=== PATIENT | female | born 2000 | race Caucasian/White ===

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

== ENCOUNTER 2021-09-13 05:47 | Observation (INO) ==
[2021-09-13] MEDS ORDERED: SODIUM CHLORIDE 0.9% 1000ML 1,000 ML IV SCH (06:00)
[2021-09-13 06:29] LABS: Basophils # (auto) 0.03 K/uL (0-0.2); Basophils % (auto) 0.2 %; Eosinophils # (auto) 0.19 K/uL (0-0.5); Eosinophils % (auto) 1.3 %; Hematocrit (blood only) 41.2 % (37-47); Hemoglobin 14.2 g/dL (12.0-16.0); Immature Granulocytes # (auto) 0.07 K/uL (0.00-0.02); Immature Granulocytes % (auto) 0.5 %; Lymphocytes # (auto) 2.97 K/uL (1.2-3.4); Lymphocytes % (auto) 20.9 %; Mean Corpuscular Hemoglobin 32.2 pg (25-34); Mean Corpuscular Hgb Conc 34.5 g/dL (32-36); Mean Corpuscular Volume 93.4 fL (80-100); Mean Platelet Volume 10.3 fL (7.4-10.4); Monocytes # (auto) 1.07 K/uL (0.11-0.59); Monocytes % (auto) 7.5 %; Neutrophils # (auto) 9.89 K/uL (1.4-6.5); Neutrophils % (auto) 69.6 %; Platelet Count 341 K/uL (130-400); RDW Coefficient of Variation 12.2 % (11.5-14.5); RDW Standard Deviation 41.7 fL (36.4-46.3); Red Blood Count 4.41 M/uL (4.2-5.4); White Blood Count 14.22 K/uL (4.8-10.8)
[2021-09-13] MEDS ORDERED: MAGNESIUM SULFATE / D5W 1 GM/100 ML BAG IV STA (06:39)
[2021-09-13 06:46] LABS: Pregnancy Test, Serum Negative (Negative)
--- NOTE | 2021-09-13 06:58 | Emergency Department Note ---
History of Present Illness General Chief complaint: Alcohol Intoxication Stated complaint: ETOH, Overdose, Laceration Time Seen by Provider: 09/13/21 06:00 Source: EMS and police Mode of arrival: EMS Limitations: altered mental status and intoxication History of Present Illness Provider complaint: Intentional overdose This is a 21-year-old female brought in by EMS for intentional overdose. Police also came and were filling out a 302 petition as they state they were contacted by the friend's best friend after she received a concerning text message and was concerned for her safety. They went to the patient's residence and no one answered the door however they did not have enough reason to forcefully enter [facility] residence. Eventually the roommate came to the door and they found the patient in the bathtub with what appeared to be blood in the water and she was minimally responsive at that time. They noted there was an empty bottle of tequila and multiple pill bottles on the floor. Police state there were bottles of ibuprofen, Benadryl, and pseudoephedrine as well as a razor and a knife noted on the floor next to the bathtub. They contacted EMS. Patient did slowly begin to arouse and stated she took approximately 10 to 15 tablets of 25 mg Benadryl. Most reported patient initially was able to ambulate with assistance, however has become more sleepy in route. Pt seen during a time of high acuity and national emergency pandemic while wearing PPE. Home Medications Medication Instructions Recorded Confirmed Type No Known Home Medications 09/13/21 09/13/21 History Allergies Allergy/AdvReac Type Severity Reaction Status Date / Time animal dander Allergy Unknown cats Verified 09/14/21 14:52 house dust Allergy Unknown Unknown Verified 09/14/21 14:52 Penicillins Allergy Unknown Unknown Verified 09/14/21 14:52 weed pollen Allergy Unknown Unknown Verified 09/14/21 14:52 Past Med/Surg History Medical History ADHD Asthma Depression Migraine Surgical History No history of previous surgery Family History Uncle Asthma maternal Denies family history of Cervix cancer Ovarian cancer Breast cancer Colorectal cancer Uterine cancer Social History Smoking Status: Unknown if ever smoked Tobacco Type: E-cigarettes / Vaping Cigarettes Per Day: Occasional vape pens; Tobacco Cessation Education Requested by Patient: No Hx Alcohol Use: Yes Alcohol type: hard liquor Hx Substance Use: No Preferred Language: Estonian Communication Ability: Effective Beliefs That Will Affect Care: None marital status: Single Current Living Situation: Other Current Living Situation Comment: Room mate current occupational status: employed and student Other Information That Helps Us Care for You: No Feels Safe at Home: Yes Safety Concerns: Afraid for Self Review of Systems A total of 10 systems reviewed and were otherwise negative All systems reviewed & are unremarkable except as noted in HPI & below Physical Exam Vital Signs Vital Signs - 24 hr 09/13/21 06:00 09/13/21 06:20 09/13/21 06:30 Temperature 36.9 C Temperature Source Oral Pulse Rate 116 H 114 H 104 H Pulse Rate from SpO2 Sensor 116 H Respiratory Rate 23 19 25 H Respiratory Effort / Characteristics Non-Labored Spontaneous Respiratory Depth Normal Blood Pressure 145/91 H 142/94 H Blood Pressure Mean 109 110 Pulse Oximetry 98 97 98 Oxygen Delivery Method Room Air Room Air Room Air Sepsis New/Unexplained Change in Mental Status N/A Sepsis Action Taken by Nursing No Action Required GENERAL: alert, somnolent appearing, well nourished EYE EXAM: normal conjunctiva, PERRL and EOM's grossly intact OROPHARYNX: no exudate, no erythema, lips, buccal mucosa, and tongue normal and mucous membranes are dry NECK: supple, no nuchal rigidity, no adenopathy, non-tender LUNGS: Clear to auscultation. Normal chest wall mechanics, no w/r/r HEART: no murmurs, S1 normal and S2 normal ABDOMEN: abdomen soft, non-tender, normo-active bowel sounds, no masses, no rebound or guarding. Several superficial horizontal lacerations noted to abdomen. BACK: Back is symmetrical on inspection and there is no deformity, no midline tenderness, no CVA tenderness. SKIN: no rashes and no bruising UPPER EXTREMITIES: upper extremities are grossly normal. FROM, nml pulses b/l. Multiple superficial lacerations noted bilateral forearms. LOWER EXTREMITIES: No pitting edema. FROM, nml pulses b/l. Multiple superficial lacerations noted to the legs. NEURO EXAM: Somnolent, arouses to painful stimuli and loud voice, cranial nerves II-XII grossly intact, unable to follow commands, moving arms and legs spontaneously Course Course 0632: Tylenol at bedside. States she received concerning text messages from the patient overnight, tried to call the patient and got no response. She then tried to contact several of the people including her roommate to check on her and got no response so she finally called the police to perform a well check. She states patient does have a history of alcohol abuse, and did recently have a DUI which caused additional stress that she was concerned for the financial implications of this. She denies any knowledge of prior suicide attempts in the patient. States she does not currently see any mental health providers and is currently not undergoing any mental health treatment. States she does not use any illicit drugs. 0715: Discussed with mom at bedside. 0735: Discussed with Nadeem, poison control. Administered Medications Acetaminophen (Acetaminophen 325 Mg Tab) 650 mg PO Q4H PRN PRN Reason: Pain or Fever Stop: 10/13/21 12:40 Last Admin: 09/14/21 12:19 Dose: 650 mg Documented by: [id number] Admin: 09/13/21 15:53 Dose: 650 mg Documented by: [id number] Folic Acid (Folic Acid 1 Mg Tab) 1 mg PO QAM [facility] Stop: 10/13/21 12:40 Last Admin: 09/14/21 08:12 Dose: 1 mg Documented by: [id number] Admin: 09/13/21 13:51 Dose: 1 mg Documented by: [id number] Gabapentin (Gabapentin 300 Mg Cap) 300 mg PO TID [facility] Stop: 10/14/21 15:44 Last Admin: 09/14/21 21:09 Dose: 300 mg Documented by: [id number] Admin: 09/14/21 16:57 Dose: 300 mg Documented by: [id number] Ceftriaxone Sodium 2,000 mg/ (Dextrose) 70 mls @ 140 mls/hr IV DAILY [facility]; Protocol Stop: 09/19/21 08:59 Last Infusion: 09/14/21 10:04 Dose: 0 mls/hr Documented by: [id number] Admin: 09/14/21 08:35 Dose: 140 mls/hr Documented by: [id number] Thiamine HCl (Thiamine Hcl 100 Mg Tab) 100 mg PO QAM [facility] Stop: 10/13/21 12:40 Last Admin: 09/14/21 08:12 Dose: 100 mg Documented by: [id number] Admin: 09/13/21 13:51 Dose: 100 mg Documented by: [id number] Discontinued Medications Sodium Chloride (Nss 1000ml) 1,000 mls @ 500 mls/hr IV .Q2H SUSANNE Stop: 09/13/21 07:59 Last Infusion: 09/13/21 06:48 Dose: 0 mls/hr Documented by: [id number] Admin: 09/13/21 06:15 Dose: 500 mls/hr Documented by: [id number] Magnesium Sulfate/Dextrose (Magnesium Sulfate / D5w) 1 gm in 100 mls @ 100 mls/hr IV NOW STA Stop: 09/13/21 07:38 Last Infusion: 09/13/21 11:53 Dose: 0 mls/hr Documented by: [id number] Admin: 09/13/21 07:33 Dose: 100 mls/hr Documented by: [id number] Sodium Chloride (Nss 1000ml) 1,000 mls @ 250 mls/hr IV .Q4H SUSANNE Stop: 10/13/21 06:44 Last Infusion: 09/13/21 13:17 Dose: 0 mls/hr Documented by: [id number] Admin: 09/13/21 11:53 Dose: 250 mls/hr Documented by: [id number] Infusion: 09/13/21 11:33 Dose: 250 mls/hr Documented by: [id number] Infusion: 09/13/21 10:45 Dose: 250 mls/hr Documented by: [id number] Admin: 09/13/21 07:33 Dose: 250 mls/hr Documented by: [id number] Potassium Chloride/Sodium Chloride (Normal Saline W/20 Meq Kcl) 20 meq in 1,000 mls @ 100 mls/hr IV .Q10H SUSANNE; Protocol Stop: 10/13/21 07:44 Last Infusion: 09/13/21 13:17 Dose: 0 mls/hr Documented by: [id number] Admin: 09/13/21 07:59 Dose: 100 mls/hr Documented by: [id number] Potassium Chloride/Sodium Chloride (Normal Saline W/20 Meq Kcl) 20 meq in 1,000 mls @ 75 mls/hr IV .[id number] ONE Stop: 09/14/21 02:19 Last Infusion: 09/14/21 05:49 Dose: 0 mls/hr Documented by: [id number] Admin: 09/13/21 13:51 Dose: 75 mls/hr Documented by: [id number] Lidocaine HCl (Xylocaine 1%/Sod Bicarb 20 Ml Vial) 40 ml INFIL NOW ONE Stop: 09/13/21 07:50 Last Admin: 09/13/21 08:18 Dose: 40 ml Documented by: [id number] Critical Care Time Critical Care Time: Yes Total Critical Care Time: 42 Critical care of 42 min performed to assess and manage high likelihood of life- threatening intentional overdose, involving labs and imaging performed with assessment to evaluate intentional overdose diagnosis with frequent reassessment. This time includes bedside time, treatment discussions with patient/family/consultants, documentation time and excludes procedure time. Medical Decision Making Differential Diagnosis Overdose, toxicologic, infection, hypoglycemia, electrolyte abnormalities, cardiac sources, intracerebral event, neurologic, trauma, as well as other pathologies. Medical Records Attestation: I reviewed the patient's medical records. Home Medications Current Medication List: was personally reviewed by me Laboratory Data Attestation: I reviewed the patient's lab results. Result diagrams: 09/14/21 05:46 09/14/21 05:46 Lab Results 09/13/21 09/13/21 09/13/21 Range/Units 06:15 06:15 06:15 WBC 14.22 H (4.8-10.8) K/uL RBC 4.41 (4.2-5.4) M/uL Hgb 14.2 (12.0-16.0) g/dL Hct 41.2 (37-47) % MCV 93.4 (80-100) fL MCH 32.2 (25-34) pg MCHC 34.5 (32-36) g/dL RDW Std Deviation 41.7 (36.4-46.3) fL RDW Coeff of Lynn 12.2 (11.5-14.5) % Plt Count 341 (130-400) K/uL MPV 10.3 (7.4-10.4) fL Immature Gran % (Auto) 0.5 % Neut % (Auto) 69.6 % Lymph % (Auto) 20.9 % [place] % (Auto) 7.5 % Eos % (Auto) 1.3 % Baso % (Auto) 0.2 % Neut # (Auto) 9.89 H (1.4-6.5) K/uL Lymph # (Auto) 2.97 (1.2-3.4) K/uL [place] # (Auto) 1.07 H (0.11-0.59) K/uL Eos # (Auto) 0.19 (0-0.5) K/uL Baso # (Auto) 0.03 (0-0.2) K/uL Immature Gran # (Auto) 0.07 H (0.00-0.02) K/uL Sodium 138 (136-145) mmol/L Potassium 3.3 L (3.5-5.1) mmol/L Chloride 107 (98-107) mmol/L Carbon Dioxide 19 L (21-32) mmol/L Anion Gap 12 H (3-11) BUN 12 (6-23) mg/dl Creatinine 0.79 (0.6-1.2) mg/dl Est Cr Clr Drug Dosing Not Reportable Est GFR ( Amer) 124.0 ml/min Est GFR (Non-Af Amer) 107.0 ml/min BUN/Creatinine Ratio 15.2 (10-20) Glucose 84 (70-99(Fasting)) mg/dl Calcium 9.4 (8.5-10.1) mg/dl Magnesium (1.7-2.4) mg/dl Total Bilirubin 0.2 (0.2-1.0) mg/dl AST 70 H (13-39) U/L ALT 106 H (7-52) U/L Alkaline Phosphatase 58 (34-104) U/L Total Protein 8.2 (6.0-8.3) gm/dl Albumin 4.6 (3.4-5.0) gm/dl Globulin 3.6 (2.5-4.0) gm/dl Albumin/Globulin Ratio 1.3 (0.9-2) TSH 9.860 H (0.300-4.500) uIu/ml Free T4 0.97 (0.61-1.60) ng/dl HCG, Qual (Negative) Salicylates (3.0-30) mg/dl Acetaminophen (10-30) ug/ml Ethyl Alcohol mg/dL (<10.0) mg/dl 09/13/21 09/13/21 09/13/21 Range/Units 06:15 06:15 06:20 WBC (4.8-10.8) K/uL RBC (4.2-5.4) M/uL Hgb (12.0-16.0) g/dL Hct (37-47) % MCV (80-100) fL MCH (25-34) pg MCHC (32-36) g/dL RDW Std Deviation (36.4-46.3) fL RDW Coeff of Lynn (11.5-14.5) % Plt Count (130-400) K/uL MPV (7.4-10.4) fL Immature Gran % (Auto) % Neut % (Auto) % Lymph % (Auto) % [place] % (Auto) % Eos % (Auto) % Baso % (Auto) % Neut # (Auto) (1.4-6.5) K/uL Lymph # (Auto) (1.2-3.4) K/uL [place] # (Auto) (0.11-0.59) K/uL Eos # (Auto) (0-0.5) K/uL Baso # (Auto) (0-0.2) K/uL Immature Gran # (Auto) (0.00-0.02) K/uL Sodium (136-145) mmol/L Potassium (3.5-5.1) mmol/L Chloride (98-107) mmol/L Carbon Dioxide (21-32) mmol/L Anion Gap (3-11) BUN (6-23) mg/dl Creatinine (0.6-1.2) mg/dl Est Cr Clr Drug Dosing Est GFR ( Amer) ml/min Est GFR (Non-Af Amer) ml/min BUN/Creatinine Ratio (10-20) Glucose (70-99(Fasting)) mg/dl Calcium (8.5-10.1) mg/dl Magnesium 1.9 (1.7-2.4) mg/dl Total Bilirubin (0.2-1.0) mg/dl AST (13-39) U/L ALT (7-52) U/L Alkaline Phosphatase (34-104) U/L Total Protein (6.0-8.3) gm/dl Albumin (3.4-5.0) gm/dl Globulin (2.5-4.0) gm/dl Albumin/Globulin Ratio (0.9-2) TSH (0.300-4.500) uIu/ml Free T4 (0.61-1.60) ng/dl HCG, Qual Negative (Negative) Salicylates (3.0-30) mg/dl Acetaminophen (10-30) ug/ml Ethyl Alcohol mg/dL 179.2 H (<10.0) mg/dl 09/13/21 Range/Units 06:57 WBC (4.8-10.8) K/uL RBC (4.2-5.4) M/uL Hgb (12.0-16.0) g/dL Hct (37-47) % MCV (80-100) fL MCH (25-34) pg MCHC (32-36) g/dL RDW Std Deviation (36.4-46.3) fL RDW Coeff of Lynn (11.5-14.5) % Plt Count (130-400) K/uL MPV (7.4-10.4) fL Immature Gran % (Auto) % Neut % (Auto) % Lymph % (Auto) % [place] % (Auto) % Eos % (Auto) % Baso % (Auto) % Neut # (Auto) (1.4-6.5) K/uL Lymph # (Auto) (1.2-3.4) K/uL [place] # (Auto) (0.11-0.59) K/uL Eos # (Auto) (0-0.5) K/uL Baso # (Auto) (0-0.2) K/uL Immature Gran # (Auto) (0.00-0.02) K/uL Sodium (136-145) mmol/L Potassium (3.5-5.1) mmol/L Chloride (98-107) mmol/L Carbon Dioxide (21-32) mmol/L Anion Gap (3-11) BUN (6-23) mg/dl Creatinine (0.6-1.2) mg/dl Est Cr Clr Drug Dosing Est GFR ( Amer) ml/min Est GFR (Non-Af Amer) ml/min BUN/Creatinine Ratio (10-20) Glucose (70-99(Fasting)) mg/dl Calcium (8.5-10.1) mg/dl Magnesium (1.7-2.4) mg/dl Total Bilirubin (0.2-1.0) mg/dl AST (13-39) U/L ALT (7-52) U/L Alkaline Phosphatase (34-104) U/L Total Protein (6.0-8.3) gm/dl Albumin (3.4-5.0) gm/dl Globulin (2.5-4.0) gm/dl Albumin/Globulin Ratio (0.9-2) TSH (0.300-4.500) uIu/ml Free T4 (0.61-1.60) ng/dl HCG, Qual (Negative) Salicylates < 3.0 L (3.0-30) mg/dl Acetaminophen < 3 L (10-30) ug/ml Ethyl Alcohol mg/dL (<10.0) mg/dl Imaging Data Radiologist's Impression: Chest X-Ray 09/13/21 06:33 XR chest 1V portable HISTORY: 21 years-old Female overdose acute drug overdose COMPARISON: None TECHNIQUE: PA view of the chest FINDINGS: Mild right hemidiaphragmatic elevation. Lungs are slightly hypoinflated with bronchovascular crowding. Cardiomediastinal and hilar silhouettes are otherwise unremarkable. No pneumothorax, pleural effusion, airspace consolidation or overt pulmonary edema. Bones appear grossly intact. IMPRESSION: Hypoinflation without acute process. ACT 112: Negative or not required by law. The above report was generated using voice recognition software. It may contain grammatical, syntax or spelling errors. Electronically signed by: Alvaro Fong M.D. 09/13/2021 7:31 AM ECG Data Attestation: I personally reviewed and interpreted this ECG as follows: Indication: + toxicologic Rate (beats per minute): 100 Rhythm: + normal sinus ECG Intervals/blocks: + Normal QRS and + Normal QT ECG Reading: + Normal ECG ST segments: + Nonspecific ST abnormalities Additional Comments: prolonged QTc MDM Narrative An order was placed for continuous cardiac monitoring. The monitor shows a rate of _109_ with _sinus tachycardia__ rhythm. This is a 21-year-old female brought in by EMS for overdose as well as si gnificant lacerations and an attempted suicide. I did speak with police were first on scene and noted several pill bottles as well as her suicide note. I did fill out a 302 petition. Patient was tachycardic however otherwise stable, was responsive although would not follow commands on neuro testing. Multiple lacerations noted to extremities and abdomen. Based on discussion with police, best friend who arrived at bedside, and EMS report based on their initial interaction with the patient, patient appears to have ingested alcohol and diphenhydramine. Labs drawn and sent, to IV started, IV fluids started, patient placed on a monitor. Chest x-ray performed. I spoke with the patient's best friend when she arrived at bedside. I updated the patient's mother when she came to bedside. Patient rechecked multiple times. Patient's heart rate did improve with IV fluid rehydration. Patient slowly became more easily aroused. After discussion with poison control and due to concern for timing of effects of ingestion wearing off, case was discussed with hospitalist for additional inpatient management and psychiatric consultation. I do feel patient's 302 should be upheld due to significance of her attempt and reported worsening depression by the best friend. Patient is also at risk for alcohol withdrawal based on best friend's description of alcohol abuse recently. Impression & Plan Intentional overdose, Alcoholic intoxication, Suicide attempt, Laceration of multiple sites, Transaminitis, Hypokalemia Discharge Plan Visit Data Chief Complaint: Alcohol Intoxication Stated Complaint: ETOH, Overdose, Laceration ED Provider: April De La Fuente Discharge Problem: Intentional overdose, Alcoholic intoxication, Suicide attempt, Laceration of multiple sites, Transaminitis, Hypokalemia Patient Disposition: Admitted As Inpatient Discharge Instructions Interventions: ED Discharge Assessment Last Done: 09/13/21 11:33 Discharge Problem: Intentional overdose Qualifiers: Encounter type: initial encounter Qualified Code(s): T50.902A - Poisoning by unspecified drugs, medicaments and biological substances, intentional self-harm, initial encounter Alcoholic intoxication Qualifiers: Complication of substance-induced condition: with unspecified complication Qualified Code(s): F10.929 - Alcohol use, unspecified with intoxication, unspecified
[2021-09-13 07:07] LABS: Alanine Aminotransferase 106 U/L (7-52); Albumin Globulin Ratio 1.3 (0.9-2); Albumin Level 4.6 gm/dl (3.4-5.0); Alkaline Phosphatase 58 U/L (34-104); Anion Gap 12 (3-11); Aspartate Aminotransferase 70 U/L (13-39); BUN Creatinine Ratio 15.2 (10-20); Bilirubin,Total 0.2 mg/dl (0.2-1.0); Blood Urea Nitrogen 12 mg/dl (6-23); Calcium 9.4 mg/dl (8.5-10.1); Carbon Dioxide 19 mmol/L (21-32); Chloride 107 mmol/L (98-107); Globulin 3.6 gm/dl (2.5-4.0); Glucose 84 mg/dl (70-99(Fasting)); Potassium 3.3 mmol/L (3.5-5.1); Sodium 138 mmol/L (136-145); Total Protein 8.2 gm/dl (6.0-8.3)
--- NOTE | 2021-09-13 07:32 | XRay Report ---
XR chest 1V portable HISTORY: 21 years-old Female overdose acute drug overdose COMPARISON: None TECHNIQUE: PA view of the chest FINDINGS: Mild right hemidiaphragmatic elevation. Lungs are slightly hypoinflated with bronchovascular crowding . Cardiomediastinal and hilar silhouettes are otherwise unremarkable. No pneumothorax, pleural effusi on, airspace consolidation or overt pulmonary edema. Bones appear grossly intact. IMPRESSION: Hypoinflation without acute process. ACT 112: Negative or not required by law. The above report was generated using voice recognition software. It may contain grammatical, syntax o r spelling errors. Electronically signed by: Alvaro Fong M.D. 09/13/2021 7:31 AM
[2021-09-13] MEDS: SODIUM CHLORIDE 0.9% 1000ML 1,000 ML IV SCH ×2 (07:33→11:53)
[2021-09-13 07:40] LABS: Acetaminophen < 3 ug/ml (10-30); Salicylate < 3.0 mg/dl (3.0-30)
[2021-09-13] MEDS ORDERED: NSS + 20MEQ KCL 20 MEQ/1,000 ML BAG IV SCH (07:45)
[2021-09-13] MEDS ORDERED: XYLOCAINE 1%/SOD BICARB 20 ML VIAL INFIL ONE (07:49)
--- NOTE | 2021-09-13 09:00 | History & Physical Report ---
Date of Service September 13, 2021 Assessment & Plan (1) Intentional overdose: (2) Alcoholic intoxication: (3) Suicide attempt: (4) Laceration of multiple sites: (5) Transaminitis: (6) Hypokalemia: Plan: This is a 21-year-old female who has significant past medical history of depression with anxiety and alcohol abuse who presents to ED via EMS with a 302 petition secondary to suicide attempt. Given patient's current condition with alcohol intoxication, evidence of active suicide attempt with Benadryl overdose and numerous cuts and excoriations to extremities, arms and abdomen it is felt that 302 petition should be upheld. Once medically stable patient requires inpatient psychiatric evaluation and further treatment. Also recommended would be alcoholic rehab. Intentional overdose Alcohol intoxication Alcohol abuse Suicide attempt Laceration of multiple sites Admit to PCU IV fluid NSS +20 M EQ KCl 125 cc/h Conservative management Keep lacerated areas clean and dry with dry dressing Suicide precautions, safe tray Consult psychiatry, will need inpatient psychiatry once medically cleared Also encourage alcohol cessation along with alcohol rehab AWSS protocol, will hold on gabapentin taper for now until effects of bendaryl/ ETOH wear off, consider adding in a.m. to prevent withdrawal daily thiamine and folic acid Hypokalemia Replace Metabolic acidosis Secondary to alcohol intoxication Elevated LFTs Obtain hepatitis panel Repeat in a.m. Consider right upper quadrant ultrasound in a.m. if no improvement Depression with anxiety currently not on any medications psych consulted DVT ppx: not indicated, given young age encourage ambulation if able DISPO: PCU, will need inpt psyc and 302 needs to be upheld PCP: Edwige FULL CODE Pt was seen and examined in collaboration with Dr. Zeng, please see addendum History of Present Illness Chief Complaint: 302, suicide attempt Primary Care Provider: Felicitas Gibbons This is a 21-year-old female who has significant past medical history of depression with anxiety and alcohol abuse who presents to ED via EMS with a 302 petition secondary to suicide attempt. History obtained from ED provider and mother at bedside. Patient unable to give accurate history at this time. According to history patient sent her best friend a disturbing text message that was concerning for her safety. Police were called who performed a wellness check. Patient was found in the bathtub in bloody water with numerous cuts to her upper, lower extremities and abdomen. Also found was a empty tequila bottle, a Benadryl bottle, and ibuprofen bottle and a pseudoephedrine bottle. After further questioning it was determined that patient took approximately 10- 15 Benadryl. It does not appear she took any ibuprofen or pseudoephedrine. She also drank half a bottle of tequila. According to mother patient has never had a suicide attempt in the past. She did previously do superficial cutting. Patient does drink on a daily basis per mother and they know it is a problem. They have been trying to get her to go to rehab, but she has been noncompliant. There is no known history of withdrawal. She does suffer from depression and anxiety and has sought counseling in the past, but per [facility] records appears this was back in 2019. She does not take any medications on a regular basis. It is not felt that she uses any illicit drug substances, but she does occasionally vape nicotine. Upon arrival to ED patient was very somnolent but otherwise hemodynamically stable. She was found to have an ethyl alcohol level of 179.2. Her salicylate and acetaminophen level was negative. She did have mild AST and ALT elevation at 70 and 106 respectively. She also had mild hypokalemia 3.4 and metabolic acidosis with a CO2 of 19 and a gap of 12. She had mild leukocytosis at 14.22. In ED she received 2 L IV fluid bolus and started on NSS with potassium supplementation. She also received IV magnesium. Due to numerous superficial cuts on abdomen, upper extremity and lower extremity it did require closure with Dermabond and Steri-Strips as well as some required sutures. Mother at bedside states patient has never had inpatient psychiatric evaluation. Allergies Allergy/AdvReac Type Severity Reaction Status Date / Time animal dander Allergy cats Verified 11/23/19 13:42 house dust Allergy Verified 11/23/19 13:42 Penicillins Allergy Verified 11/23/19 13:42 weed pollen Allergy Verified 11/23/19 13:42 [id number] Allergy Unknown Uncoded 07/16/02 18:29 Home Medications Medication Instructions Recorded Confirmed Type No Known Home Medications 09/13/21 09/13/21 History Past Med/Surg History Medical History (Updated 09/13/21 @ 08:57 by Zofia Richardson PA-C) ADHD Asthma Depression Migraine Surgical History No history of previous surgery Family History Uncle Asthma maternal Denies family history of Cervix cancer Ovarian cancer Breast cancer Colorectal cancer Uterine cancer Social History (Updated 09/13/21 @ 08:58 by Zofia Richardson PA-C) Smoking Status: Unknown if ever smoked Tobacco Type: E-cigarettes / Vaping Hx Alcohol Use: Yes Alcohol type: hard liquor Hx Substance Use: No Preferred Language: Upper Sorbian marital status: Single current occupational status: employed and student Feels Safe at Home: Yes Review of Systems Review of Systems: Unobtainable due to reduced consciousness Physical Exam Physical Exam: Constitutional: WD/WN, vitals as above, NAD, lying in bed, awake but not communicating Head: Normocephalic, Atraumatic Eyes: PERRL, conjunctivae normal, anicteric sclerae ENMT: external ear and nose normal, oropharynx normal dry membranes Neck: trachea midline, no thyromegaly normal visual inspection Respiratory: normal respiratory effort, lungs clear to auscultation, no wheeze, rales, rhonchi. Normal insp/exp effort, no accessory muscle use Cardiovascular: RRR, no murmur, no edema Vessels: no JVD or carotid bruit Chest: normal inspection of chest Abdomen: normal bowel sounds, soft, nontender, no hepatosplenomegaly , superficial lacerations to abd wall Musculoskeletal: no cyanosis or clubbing, extremities motor strength 5/5 Skin: no rashes, warm and dry normal turgor , lacerations noted to b/l forearms and b/l upper extremities, dermabonded and steristrips in place Neurologic: PERRL, EOMI, accommodation nl, no face palsy, no dysarthria CN's II-XI intact bilaterally and moves all extremities Psychiatric: Alert but not oriented Lymphatic: no cervical or axillary lymphadenopathy : deferred Results & Data Results & Data ([facility]) Vital Signs (Past 12 Hours) Vital Signs Temp Pulse Resp BP Pulse Ox 09/13/21 08:10 94 H 23 98 09/13/21 08:00 96 H 30 H 137/83 99 09/13/21 07:50 93 H 25 H 98 09/13/21 07:40 93 H 23 97 09/13/21 07:30 94 H 24 119/84 96 09/13/21 07:20 96 09/13/21 07:10 19 98 09/13/21 07:00 93 H 28 H 116/77 95 09/13/21 06:50 90 25 H 97 09/13/21 06:30 104 H 25 H 142/94 H 98 09/13/21 06:20 36.9 C 114 H 19 145/91 H 97 09/13/21 06:00 116 H 23 98 Diagnostic Findings Chest X-Ray 09/13/21 06:33 XR chest 1V portable HISTORY: 21 years-old Female overdose acute drug overdose COMPARISON: None TECHNIQUE: PA view of the chest FINDINGS: Mild right hemidiaphragmatic elevation. Lungs are slightly hypoinflated with bronchovascular crowding. Cardiomediastinal and hilar silhouettes are otherwise unremarkable. No pneumothorax, pleural effusion, airspace consolidation or overt pulmonary edema. Bones appear grossly intact. IMPRESSION: Hypoinflation without acute process. ACT 112: Negative or not required by law. The above report was generated using voice recognition software. It may contain grammatical, syntax or spelling errors. Electronically signed by: Alvaro Fong M.D. 09/13/2021 7:31 AM Medications Administered Medication List Sodium Chloride (Nss 1000ml) 1,000 mls @ 250 mls/hr IV .Q4H SUSANNE Stop: 10/13/21 06:44 Last Admin: 09/13/21 07:33 Dose: 250 mls/hr Documented by: [id number] Potassium Chloride/Sodium Chloride (Normal Saline W/20 Meq Kcl) 20 meq in 1,000 mls @ 100 mls/hr IV .Q10H SUSANNE; Protocol Stop: 10/13/21 07:44 Last Admin: 09/13/21 07:59 Dose: 100 mls/hr Documented by: [id number] Discontinued Medications Sodium Chloride (Nss 1000ml) 1,000 mls @ 500 mls/hr IV .Q2H SUSANNE Stop: 09/13/21 07:59 Last Infusion: 09/13/21 06:48 Dose: 0 mls/hr Documented by: [id number] Admin: 09/13/21 06:15 Dose: 500 mls/hr Documented by: [id number] Magnesium Sulfate/Dextrose (Magnesium Sulfate / D5w) 1 gm in 100 mls @ 100 mls/hr IV NOW STA Stop: 09/13/21 07:38 Last Admin: 09/13/21 07:33 Dose: 100 mls/hr Documented by: [id number] Lidocaine HCl (Xylocaine 1%/Sod Bicarb 20 Ml Vial) 40 ml INFIL NOW ONE Stop: 09/13/21 07:50 Last Admin: 09/13/21 08:18 Dose: 40 ml Documented by: [id number] ECG Rate (beats per minute): 100 Rhythm: normal sinus Findings: + prolonged QT (503ms) COVID-19 Results Results COVID-19 Adm Lab Results: RBC 4.41 M/uL (4.2-5.4) 09/13/21 WBC 14.22 K/uL (4.8-10.8) H 09/13/21 Hgb 14.2 g/dL (12.0-16.0) 09/13/21 Hct 41.2 % (37-47) 09/13/21 Plt Count 341 K/uL (130-400) 09/13/21 Neutrophils (%) (Auto) 69.6 % 09/13/21 Lymphocytes (%) (Auto) 20.9 % 09/13/21 Monocytes # (Auto) 1.07 K/uL (0.11-0.59) H 09/13/21 Eosinophils # (Auto) 0.19 K/uL (0-0.5) 09/13/21 Immature Granulocyte % (Auto) 0.5 % 09/13/21 Neutrophils # (Auto) 9.89 K/uL (1.4-6.5) H 09/13/21 Lymphocytes # (Auto) 2.97 K/uL (1.2-3.4) 09/13/21 Monocytes # (Auto) 1.07 K/uL (0.11-0.59) H 09/13/21 Eosinophils # (Auto) 0.19 K/uL (0-0.5) 09/13/21 Basophils # (Auto) 0.03 K/uL (0-0.2) 09/13/21 Immature Granulocyte # (Auto) 0.07 K/uL (0.00-0.02) H 09/13/21 Na 138 mmol/L (136-145) 09/13/21 K 3.3 mmol/L (3.5-5.1) L 09/13/21 Cl 107 mmol/L (98-107) 09/13/21 CO2 19 mmol/L (21-32) L 09/13/21 Anion Gap 12 (3-11) H 09/13/21 BUN 12 mg/dl (6-23) 09/13/21 Creatinine 0.79 mg/dl (0.6-1.2) 09/13/21 BUN/Creatinine Ratio 15.2 (10-20) 09/13/21 Glucose Level 84 mg/dl (70-99(Fasting)) 09/13/21 Ca 9.4 mg/dl (8.5-10.1) 09/13/21 Total Bilirubin 0.2 mg/dl (0.2-1.0) 09/13/21 AST/SGOT 70 U/L (13-39) H 09/13/21 ALT/SGPT 106 U/L (7-52) H 09/13/21 Alkaline Phosphatase 58 U/L (34-104) 09/13/21 Total Protein 8.2 gm/dl (6.0-8.3) 09/13/21 Albumin 4.6 gm/dl (3.4-5.0) 09/13/21 Globulin 3.6 gm/dl (2.5-4.0) 09/13/21 Albumin/Globulin Ratio 1.3 (0.9-2) 09/13/21 SARS-CoV-2, RNA, NAAT NEGATIVE (NEGATIVE) 09/13/21 Chest X-Ray 09/13/21 Code Status & VTE Plan Code Status Full Code VTE Prophylaxis Plan VTE Prophylaxis will be ordered: No Supervising Physician Co-Signing Physician Notes Patient is a 21-year-old female with history of depression, anxiety, alcohol use disorder and no other significant past medical history presents with history of a suicidal attempt. Patient was noted in bathtub with blood-tinged water, numerous lacerations bilateral upper and lower extremities and abdomen. She was noted to have bottles of ibuprofen, pseudoephedrine, Benadryl and a bottle of tequila next to her. Patient informed to have approximately taking 10-15 Benadryl tablets. Patient currently unable to provide any history and most of the history is obtained from patient's mother at bedside. Patient apparently drinks on a daily basis as per family. No known history of illicit drug use. Patient's boyfriend left her recently and this could have been possibly the triggering factor for suicidal attempt as per family. Please review HPI for complete details of presentation. Blood work suggestive of leukocytosis 14 K, potassium 3.3, bicarbonate 19, mild elevated LFTs, AST 70, ALT 106, alcohol level 179. EKG with history of prolonged QTC. Chest x-ray showed no acute process. On exam patient is well-built and nourished, no apparent distress, drowsy, not communicating, normocephalic atraumatic, EOMI, normal breath sounds, clear to auscultation, S1-S2, mild tachycardia, abdomen soft, nontender, multiple superficial lacerations, alert, awake, confused, grossly moves all extremities, multiple lacerations noted on bilateral upper and lower extremities. Complete neurological exam could not be performed given patient's mental status. Patient is admitted for management of intentional overdose, pau cidal attempt and alcohol use disorder. Poison control was contacted who recommended conservative management as per ED physician. Suicidal precautions, one-on-one observation, psychiatry consulted. Gentle IV fluids. Monitor for alcohol withdrawal. Agree with checking hepatitis panel and monitoring LFTs. Consider imaging liver if needed. Elevated TSH likely acute phase reactant. Will repeat TSH in a.m. Urinalysis and toxicology screen pending. Thiamine, folic acid supplements. I personally reviewed the record. Patient is interviewed and examined at bedside. Patient's care is coordinated with Zofia Mckenna. Please refer to the documentation above for details of patient's presentation and for discussion of other issues. (1) Intentional overdose Encounter type: initial encounter Qualified Code(s): T50.902A - Poisoning by unspecified drugs, medicaments and biological substances, intentional self-harm, initial encounter (2) Alcoholic intoxication Complication of substance-induced condition: with unspecified complication Qualified Code(s): F10.929 - Alcohol use, unspecified with intoxication, unspecified
--- NOTE | 2021-09-13 09:17 | Emergency Department Note ---
ED Visit Note EMERGENCY DEPARTMENT PROCEDURE NOTE: I was asked by Dr. De La Fuente to evaluate and repair the multiple self-inflicted wounds on the bilateral forearms and bilateral inner thighs of this 21-year-old female patient brought into the emergency department for evaluation of overdose and alcohol intoxication. Please refer to their dictation for the complete history, physical exam, and ED course. EMERGENCY DEPARTMENT COURSE: Right thigh: Total of 11 linear wounds. The thigh was cleansed thoroughly with normal saline solution. Wounds to be sutured were anesthetized with 1% plain buffered lidocaine and cleansed with Betadine. 7 were superficial, and reapproximated with benzoin, Steri-Strips and Dermabond. 2 repairable lacerations measuring 6 cm in length and 2 repairable lacerations measuring 7 cm in length were repaired using a combination of 4-0 nylon, simple and [id number] sutures. Left thigh: Total of 8 linear wounds. The thigh was cleansed thoroughly with normal saline solution. Wounds to be sutured were anesthetized with 1% plain buffered lidocaine and cleansed with Betadine. 2 repairable lacerations measuring 6 cm in length, repaired using [id number] 4-0 nylon sutures. Remainder were reapproximated using benzoin, Steri-Strips and Dermabond. Left arm: 5 linear wounds, 4 of which were superficial. Arm was cleansed thoroughly with normal saline solution. Laceration to be reapproximated was cleansed with Betadine and anesthetized with 1% plain buffered lidocaine. Repair level laceration was 4 cm in length and was reapproximated using 4-0 [id number] nylon sutures. Remaining wounds were reapproximated using benzoin, Steri-Strips and Dermabond. : Intentional overdose Qualifiers: Encounter type: initial encounter Qualified Code(s): T50.902A - Poisoning by unspecified drugs, medicaments and biological substances, intentional self-harm, initial encounter Alcoholic intoxication Qualifiers: Complication of substance-induced condition: with unspecified complication Qualified Code(s): F10.929 - Alcohol use, unspecified with intoxication, unspecified
[2021-09-13 09:49] LABS: Thyroid Stimulating Hormone 9.86 uIu/ml (0.300-4.500)
[2021-09-13 10:22] LABS: T4 Free Thyroxine 0.97 ng/dl (0.61-1.60)
[2021-09-13] MEDS ORDERED: POLYETHYLENE (MIRALAX) 17 GM PACK PO PRN (12:41)
[2021-09-13] MEDS ORDERED: PROMETHAZINE HCL 12.5 MG in SODIUM CHLORIDE 0.9% 50 ML IV PRN (12:41)
[2021-09-13] MEDS ORDERED: MAGNESIUM HYDROXIDE SUSP 30 ML UDC PO PRN (12:41)
[2021-09-13] MEDS ORDERED: LORazepam 1 MG TAB PO PRN (12:41)
[2021-09-13] MEDS ORDERED: ALUMINUM/MAGNESIUM SUSP 30 ML UDC PO PRN (12:41)
[2021-09-13] MEDS ORDERED: NSS + 20MEQ KCL 20 MEQ/1,000 ML BAG IV ONE (13:00)
[2021-09-13] MEDS: FOLIC ACID 1 MG TAB PO SCH (13:51)
[2021-09-13] MEDS: THIAMINE HCL 100 MG TAB PO SCH (13:51)
[2021-09-13] MEDS: ACETAMINOPHEN 325 MG TAB PO PRN (15:53)
--- NOTE | 2021-09-13 16:01 | Psychiatric Consultation ---
Date of Consultation September 13, 2021 Impression / Recommendations Impression 21 yo female s/p ETOH and Benadryl OD with multiple superficial cuts on arms/body as a suicide attempt. Significantly elevated TSH. (1) Major depression, recurrent: (2) Intentional overdose: Encounter type: initial encounter Qualified Code(s): T50.902A - Poisoning by unspecified drugs, medicaments and biological substances, intentional self-harm, initial encounter (3) Alcoholic intoxication: Complication of substance-induced condition: with unspecified complication Qualified Code(s): F10.929 - Alcohol use, unspecified with intoxication, unspecified (4) Laceration of multiple sites: (5) TSH elevation: patient has 1-on-1 and is not able to leave hospital AMA will require inpatient mental health treatment prior to enrollment in any rehab program, even dual dx. Explained 201 vs 302. Will discuss in more detail when medically cleared. Risk Factors Assessment Do You Have Access To A Gun?: No Psych History Identifying Data Wanda is a 21 yo female from [place]. Reportedly on a 302 warrant for significant suicide attempt. Her mother is at bedside to assist history as she is still having some cognitive slowing from the anticholinergic OD. Chief Complaint "This was impulsive". History of Present Illness The patient has no memory of her attempt at this time but is more alert and interactive in conversation, just loses focus and is slow to answer at times. According to history obtained in ED/admission her friend alerted police to a disturbing text message and when they performed a safety check she was found in the bathtub in "bloody water with numerous cuts to her upper, lower extremities and abdomen. Also found was a empty tequila bottle, a Benadryl bottle, and ibuprofen bottle and a pseudoephedrine bottle". It's estimated the patient took 10-15 tabs of 25 mg Benadryl. SIMA was 187 (likely higher earlier). The patient is not really able to quantify her drinking at this time but mother reports daily and they were discussing rehab programs in the past 2-3 weeks. Her mood has been on a steady downtrend since her boyfriend moved away 1 month ago. She attends work at [employer] to support her own apartment with 1 roommate but mother lives close by. Mother confirms no prior attempts. The patient endorses multiple vegetative symptoms of depression like poor sleep and concentration, guilt, hopelessness, decline in self -care. ?hx of SIB. Past Psychiatric History Outpatient Services: had a therapist maybe 2 years, has been "on/off" antidepressant medications in the past--recognizes Zoloft Previous Psych Admissions: no Do You Have Access To A Gun?: No History of Previous Suicide Attempt: No Past Medication Trials: Zoloft Allergies Allergy/AdvReac Type Severity Reaction Status Date / Time animal dander Allergy cats Verified 11/23/19 13:42 house dust Allergy Verified 11/23/19 13:42 Penicillins Allergy Verified 11/23/19 13:42 weed pollen Allergy Verified 11/23/19 13:42 [id number] Allergy Unknown Uncoded 07/16/02 18:29 Home Medications Medication Instructions Recorded Confirmed Type No Known Home Medications 09/13/21 09/13/21 History Family History mother and grandmother with depression and anxiety, no ETOH Substance Abuse History will need to obtain without mother at bedside as STEPHANI clears. 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[employer]) Marital Status: Single Number Of Children: 0 Beliefs That Will Affect Care: None History of Legal Problems: no Psychological Trauma History Comment: unable to assess Patient History Medical History ADHD Asthma Depression Migraine Surgical History No history of previous surgery Family History Uncle Asthma maternal Denies family history of Cervix cancer Ovarian cancer Breast cancer Colorectal cancer Uterine cancer Social History Smoking Status: Unknown if ever smoked Tobacco Type: E-cigarettes / Vaping Cigarettes Per Day: Occasional vape pens; Tobacco Cessation Education Requested by Patient: No Hx Alcohol Use: Yes Alcohol type: hard liquor Hx Substance Use: No Preferred Language: Upper Sorbian Communication Ability: Effective Beliefs That Will Affect Care: None marital status: Single Current Living Situation: Other Current Living Situation Comment: Room mate current occupational status: employed and student Other Information That Helps Us Care for You: No Feels Safe at Home: Yes Safety Concerns: Afraid for Self Physical Exam Psychiatric: Orientation: alert, oriented to person and oriented to place Apperance: appropriately dressed and appropriately groomed Eye Contact: good eye contact Motor Behavior: no abnormal motor movements Speech: normal rate/rhythm/volume of speech Affect: + depressed affect Mood: + depressed mood Thought Process: goal directed thought process Thought Content: reality based without delusions Suicidal Thoughts: denies suicidal thoughts Homicidal Thoughts: denies homicidal thoughts Hallucinations: no auditory hallucinations and no visual hallucinations Cognition: language grossly intact; + attention not intact Estimated Intelligence: consistent with education level Insight: + limited insight Judgement: + limited judgement Vital Signs (Past 24 Hours): Last Vital Signs Temp 36.7 C 09/13/21 12:41 Pulse 91 H 09/13/21 12:41 Resp 20 09/13/21 12:41 BP 137/74 09/13/21 12:41 Pulse Ox 97 09/13/21 12:41 Review of Systems All systems reviewed & are unremarkable except as noted in HPI & below Results & Data (PSY) Laboratory Results 09/13/21 09/13/21 09/13/21 Range/Units 08:43 06:57 06:20 WBC (4.8-10.8) K/uL RBC (4.2-5.4) M/uL Hgb (12.0-16.0) g/dL Hct (37-47) % MCV (80-100) fL MCH (25-34) pg MCHC (32-36) g/dL RDW Std Deviation (36.4-46.3) fL RDW Coeff of Lynn (11.5-14.5) % Plt Count (130-400) K/uL MPV (7.4-10.4) fL Immature Gran % (Auto) % Neut % (Auto) % Lymph % (Auto) % [place] % (Auto) % Eos % (Auto) % Baso % (Auto) % Neut # (Auto) (1.4-6.5) K/uL Lymph # (Auto) (1.2-3.4) K/uL [place] # (Auto) (0.11-0.59) K/uL Eos # (Auto) (0-0.5) K/uL Baso # (Auto) (0-0.2) K/uL Immature Gran # (Auto) (0.00-0.02) K/uL Sodium (136-145) mmol/L Potassium (3.5-5.1) mmol/L Chloride (98-107) mmol/L Carbon Dioxide (21-32) mmol/L Anion Gap (3-11) BUN (6-23) mg/dl Creatinine (0.6-1.2) mg/dl Est Cr Clr Drug Dosing Est GFR ( Amer) ml/min Est GFR (Non-Af Amer) ml/min BUN/Creatinine Ratio (10-20) Glucose (70-99(Fasting)) mg/dl Calcium (8.5-10.1) mg/dl Magnesium 1.9 (1.7-2.4) mg/dl Total Bilirubin (0.2-1.0) mg/dl AST (13-39) U/L ALT (7-52) U/L Alkaline Phosphatase (34-104) U/L Total Protein (6.0-8.3) gm/dl Albumin (3.4-5.0) gm/dl Globulin (2.5-4.0) gm/dl Albumin/Globulin Ratio (0.9-2) TSH (0.300-4.500) uIu/ml Free T4 (0.61-1.60) ng/dl HCG, Qual (Negative) Salicylates < 3.0 L (3.0-30) mg/dl Acetaminophen < 3 L (10-30) ug/ml Ethyl Alcohol mg/dL (<10.0) mg/dl SARS-CoV-2, RNA, NAAT NEGATIVE (NEGATIVE) 09/13/21 09/13/21 09/13/21 Range/Units 06:15 06:15 06:15 WBC (4.8-10.8) K/uL RBC (4.2-5.4) M/uL Hgb (12.0-16.0) g/dL Hct (37-47) % MCV (80-100) fL MCH (25-34) pg MCHC (32-36) g/dL RDW Std Deviation (36.4-46.3) fL RDW Coeff of Lynn (11.5-14.5) % Plt Count (130-400) K/uL MPV (7.4-10.4) fL Immature Gran % (Auto) % Neut % (Auto) % Lymph % (Auto) % [place] % (Auto) % Eos % (Auto) % Baso % (Auto) % Neut # (Auto) (1.4-6.5) K/uL Lymph # (Auto) (1.2-3.4) K/uL [place] # (Auto) (0.11-0.59) K/uL Eos # (Auto) (0-0.5) K/uL Baso # (Auto) (0-0.2) K/uL Immature Gran # (Auto) (0.00-0.02) K/uL Sodium (136-145) mmol/L Potassium (3.5-5.1) mmol/L Chloride (98-107) mmol/L Carbon Dioxide (21-32) mmol/L Anion Gap (3-11) BUN (6-23) mg/dl Creatinine (0.6-1.2) mg/dl Est Cr Clr Drug Dosing Est GFR ( Amer) ml/min Est GFR (Non-Af Amer) ml/min BUN/Creatinine Ratio (10-20) Glucose (70-99(Fasting)) mg/dl Calcium (8.5-10.1) mg/dl Magnesium (1.7-2.4) mg/dl Total Bilirubin (0.2-1.0) mg/dl AST (13-39) U/L ALT (7-52) U/L Alkaline Phosphatase (34-104) U/L Total Protein (6.0-8.3) gm/dl Albumin (3.4-5.0) gm/dl Globulin (2.5-4.0) gm/dl Albumin/Globulin Ratio (0.9-2) TSH 9.860 H (0.300-4.500) uIu/ml Free T4 0.97 (0.61-1.60) ng/dl HCG, Qual Negative (Negative) Salicylates (3.0-30) mg/dl Acetaminophen (10-30) ug/ml Ethyl Alcohol mg/dL 179.2 H (<10.0) mg/dl SARS-CoV-2, RNA, NAAT (NEGATIVE) 09/13/21 09/13/21 Range/Units 06:15 06:15 WBC 14.22 H (4.8-10.8) K/uL RBC 4.41 (4.2-5.4) M/uL Hgb 14.2 (12.0-16.0) g/dL Hct 41.2 (37-47) % MCV 93.4 (80-100) fL MCH 32.2 (25-34) pg MCHC 34.5 (32-36) g/dL RDW Std Deviation 41.7 (36.4-46.3) fL RDW Coeff of Lynn 12.2 (11.5-14.5) % Plt Count 341 (130-400) K/uL MPV 10.3 (7.4-10.4) fL Immature Gran % (Auto) 0.5 % Neut % (Auto) 69.6 % Lymph % (Auto) 20.9 % [place] % (Auto) 7.5 % Eos % (Auto) 1.3 % Baso % (Auto) 0.2 % Neut # (Auto) 9.89 H (1.4-6.5) K/uL Lymph # (Auto) 2.97 (1.2-3.4) K/uL [place] # (Auto) 1.07 H (0.11-0.59) K/uL Eos # (Auto) 0.19 (0-0.5) K/uL Baso # (Auto) 0.03 (0-0.2) K/uL Immature Gran # (Auto) 0.07 H (0.00-0.02) K/uL Sodium 138 (136-145) mmol/L Potassium 3.3 L (3.5-5.1) mmol/L Chloride 107 (98-107) mmol/L Carbon Dioxide 19 L (21-32) mmol/L Anion Gap 12 H (3-11) BUN 12 (6-23) mg/dl Creatinine 0.79 (0.6-1.2) mg/dl Est Cr Clr Drug Dosing Not Reportable Est GFR ( Amer) 124.0 ml/min Est GFR (Non-Af Amer) 107.0 ml/min BUN/Creatinine Ratio 15.2 (10-20) Glucose 84 (70-99(Fasting)) mg/dl Calcium 9.4 (8.5-10.1) mg/dl Magnesium (1.7-2.4) mg/dl Total Bilirubin 0.2 (0.2-1.0) mg/dl AST 70 H (13-39) U/L ALT 106 H (7-52) U/L Alkaline Phosphatase 58 (34-104) U/L Total Protein 8.2 (6.0-8.3) gm/dl Albumin 4.6 (3.4-5.0) gm/dl Globulin 3.6 (2.5-4.0) gm/dl Albumin/Globulin Ratio 1.3 (0.9-2) TSH (0.300-4.500) uIu/ml Free T4 (0.61-1.60) ng/dl HCG, Qual (Negative) Salicylates (3.0-30) mg/dl Acetaminophen (10-30) ug/ml Ethyl Alcohol mg/dL (<10.0) mg/dl SARS-CoV-2, RNA, NAAT (NEGATIVE) Medications Administered Acetaminophen (Acetaminophen 325 Mg Tab) 650 mg PO Q4H PRN PRN Reason: Pain or Fever Stop: 10/13/21 12:40 Last Admin: 09/13/21 15:53 Dose: 650 mg Documented by: [id number] Folic Acid ([facility] Acid 1 Mg Tab) [facility] Stop: 10/13/21 12:40 Last Admin: 09/13/21 13:51 Dose: 1 mg Documented by: [id number] Potassium Chloride/Sodium Chloride (Normal Saline W/20 Meq Kcl) 20 meq in 1,000 mls @ 75 mls/hr IV .[id number] ONE Stop: 09/14/21 02:19 Last Admin: 09/13/21 13:51 Dose: 75 mls/hr Documented by: [id number] Thiamine HCl (Thiamine Hcl 100 Mg Tab) [facility] Stop: 10/13/21 12:40 Last Admin: 09/13/21 13:51 Dose: 100 mg Documented by: [id number] Coding Level of Care Code 26843 Inpt Consult Level 3 Diagnoses Major depression, recurrent F33.9 Intentional overdose T50.902A Encounter type: initial encounter Alcoholic intoxication F10.929 Complication of substance-induced condition: with unspecified complication Laceration of multiple sites T07.XXXA TSH elevation R79.89
[2021-09-13 20:25] LABS: Appearance Urine Clear (Clear); Bacteria Urine Automated Negative (Negative); Bilirubin Urine Negative (Negative); Blood Urine 3+ (Negative); Color Urine Yellow; Epithelial Cell Urine Auto >30 /lpf (0-5); Glucose Urine UA Negative (Negative); Ketones Urine Trace (Negative); Leukocyte Esterase Urine 1+ (Negative); Nitrite Urine Negative (Negative); Protein Urine Negative (Negative); Specific Gravity Urine 1.022 (1.000-1.030); Urobilinogen Urine Negative (Negative)
[2021-09-13 21:06] LABS: Amphetamines+Metham, Urine Neg (Neg); Barbiturates, Urine Neg (Neg); Benzodiazepine, Urine Neg (Neg); Cocaine, Urine Neg (Neg); MDMA (Ecstacy), Urine Neg (Neg); Methadone, Urine Neg (Neg); Opiate, Urine Neg (Neg); Phencyclidine, Urine Neg (Neg)
[2021-09-14 06:05] LABS: Basophils # (auto) 0.04 K/uL (0-0.2); Basophils % (auto) 0.3 %; Eosinophils # (auto) 0.16 K/uL (0-0.5); Eosinophils % (auto) 1.2 %; Hematocrit (blood only) 41.2 % (37-47); Hemoglobin 13.7 g/dL (12.0-16.0); Immature Granulocytes # (auto) 0.07 K/uL (0.00-0.02); Immature Granulocytes % (auto) 0.5 %; Lymphocytes % (auto) 18.6 %; Mean Corpuscular Hemoglobin 31.4 pg (25-34); Mean Corpuscular Hgb Conc 33.3 g/dL (32-36); Mean Corpuscular Volume 94.5 fL (80-100); Mean Platelet Volume 10.1 fL (7.4-10.4); Monocytes % (auto) 7.4 %; Platelet Count 283 K/uL (130-400); RDW Coefficient of Variation 12.3 % (11.5-14.5); RDW Standard Deviation 42.4 fL (36.4-46.3); Red Blood Count 4.36 M/uL (4.2-5.4); White Blood Count 13.47 K/uL (4.8-10.8)
--- NOTE | 2021-09-14 06:10 | Electrocardiogram Report ---
Test Reason : Blood Pressure : / mmHG Vent. Rate : 100 BPM Atrial Rate : 100 BPM P-R Int : 154 ms QRS Dur : 090 ms QT Int : 368 ms P-R-T Axes : 017 051 012 degrees QTc Int : 475 ms Normal sinus rhythm Prolonged QT Abnormal ECG No previous ECGs available Confirmed by Rolando Soto ([id number]) on 09/14/2021 6:10:22 AM Referred By: Confirmed By:Rolando Soto
[2021-09-14 06:26] LABS: Albumin Globulin Ratio 1.4 (0.9-2); Albumin Level 4.1 gm/dl (3.4-5.0); BUN Creatinine Ratio 9.7 (10-20); Bilirubin,Total 0.7 mg/dl (0.2-1.0); Calcium 9.1 mg/dl (8.5-10.1); Creatinine Clr Calc Pharmacy 120.1 ml/min; Est GFR (African American) 101.8 ml/min; Est GFR (Non-African American) 87.9 ml/min; Magnesium 1.8 mg/dl (1.7-2.4); Potassium 4.2 mmol/L (3.5-5.1); Total Protein 7.1 gm/dl (6.0-8.3)
[2021-09-14] MEDS: THIAMINE HCL 100 MG TAB PO SCH (08:12)
[2021-09-14] MEDS: FOLIC ACID 1 MG TAB PO SCH (08:12)
[2021-09-14] MEDS: cefTRIAXone SODIUM 2,000 MG in DEXTROSE 5% 50 ML IV SCH (08:35)
[2021-09-14] MEDS: ACETAMINOPHEN 325 MG TAB PO PRN (12:19)
--- NOTE | 2021-09-14 12:21 | Communication Note ---
Date of Service: September 14, 2021 patient is resting soundly, VSS stable. Interim history reviewed. Mother remains at bedside and support of inpatient care. Anticipate transfer to on when medically cleared (302 warrant will be dispositioned at that time).
[2021-09-14] MEDS ORDERED: LORazepam 2 MG/1 ML VIAL IV PRN ×3 (14:59)
[2021-09-14] MEDS ORDERED: ATIVAN IV ALCOHOL WITHDRAWL IV PRN (14:59)
--- NOTE | 2021-09-14 15:36 | Hospitalist Progress Note ---
Date of Service September 14, 2021 Assessment & Plan (1) Intentional overdose: (2) Alcoholic intoxication: (3) Suicide attempt: (4) Laceration of multiple sites: (5) Transaminitis: (6) Hypokalemia: Plan: This is a 21-year-old female who has significant past medical history of depression with anxiety and alcohol abuse who presents to ED via EMS with a 302 petition secondary to suicide attempt. Given patient's current condition with alcohol intoxication, evidence of active suicide attempt with Benadryl overdose and numerous cuts and excoriations to extremities, arms and abdomen it is felt that 302 petition should be upheld. Once medically stable patient requires inpatient psychiatric evaluation and further treatment. Also recommended would be alcoholic rehab. Intentional overdose with benadryl and alcohol with multiple superficial cuts on extremity/body as suicide attempt Alcohol abuse with intoxication- at risk for withdrawal - last drink the night before presentation- around 09/12 night or 09/13 board saw runner- 36 hours from last drink and CIWA score 0 with no signs of withdrawal. However she remains at risk given her drinking history and alcohol level on presentation. Now her mental state is clear and vitals stable, will start on alcohol withdrawal protocol with ativan prn. Will have gabapentin to help with the pain as well as withdrawal but will not start the high dose as it might make her sedated and may make the picture muddy. Continue thiamine, folate, multivitamin - Will start on toradol prn for pain along with tylenol - Local wound care - Psych and CM following. She will need inpatient mental health treatment prior to enrolment in any rehab program per psych Abnormal UA- r/o UTI- on ceftriaxone pending urine clx results. ABx to also prevent any wound infection. Abnormal TSH- fT4 normal. Recommend repeat TFT in 4-6 weeks and follow up with PCP. Hypokalemia- resolved Metabolic acidosis- resolved Elevated LFTs- from alcohol abuse. Recheck in am, Already improving Depression with anxiety- was on lexapro in the past but hasn't taken for couple years. Defer to psych. DVT prophylaxis- lovenox Dispo: Will need to completely detox- 3-4 more days, will then need to go to inpatient psych facility. Psych following Updated mom and aunt at bedside Admission and Anticipated Discharge Date Admission Date: September 13, 2021 Subjective Patient was seen and examined at bedside. Mom and aunt present at bedside. Complaining of pain at the wound site, does not look infected currently. Denies any withdrawal symptoms. Her aunt says that she has a very high pain threshold and her 3 means 6-7 for other people. Tylenol did not help much. Denies any nausea vomiting, chest pain or shortness of breath, fever or chills. Physical Exam Physical Exam: General: Lying comfortably in bed, not in distress, on room air HEENT: EOMI, CHRISTIAN, MMM Chest: Clear breath sounds bilaterally, no wheezes or crackles CVS: Regular rate and rhythm, normal heart sounds, no murmur Abdomen: Soft, non tender, not distended, normal bowel sounds Neuro: Awake, alert, oriented, conversing well, non focal Extremities: No cyanosis, clubbing or edema. Left thigh superficial cut wounds with suture and glued- does not look infected. Left forearm cut wounds with suture and glued, mild serous drainage- no purulence. No cellulitis. Results & Data Results & Data ([facility]) Vital Signs (Past 12 Hours) Vital Signs Temp Pulse Resp BP Pulse Ox 09/14/21 12:00 36.8 C 68 20 133/85 98 09/14/21 08:13 56 L 09/14/21 07:25 36.7 C 70 19 124/81 100 09/14/21 03:53 36.8 C 69 16 139/91 97 Laboratory Results Short CBC 09/14/21 Range/Units 05:46 WBC 13.47 H (4.8-10.8) K/uL Hgb 13.7 (12.0-16.0) g/dL Hct 41.2 (37-47) % Plt Count 283 (130-400) K/uL BMP 09/14/21 05:46 Sodium 135 L Potassium 4.2 D Chloride 105 Carbon Dioxide 21 BUN 9 Creatinine 0.93 Glucose 94 Calcium 9.1 Liver Function 09/14/21 Range/Units 05:46 Total Bilirubin 0.7 D (0.2-1.0) mg/dl AST 57 H (13-39) U/L ALT 90 H (7-52) U/L Alkaline Phosphatase 51 (34-104) U/L Albumin 4.1 (3.4-5.0) gm/dl Urine 04/13/22 Range/Units Unknown Urine Color Yellow Urine Appearance Clear (Clear) Urine pH 6.0 (4.5-7.5) Ur Specific [place] 1.022 (1.000-1.030) Urine Protein Negative (Negative) Urine Glucose (UA) Negative (Negative) Medications Administered Current Inpatient Medications Acetaminophen (Acetaminophen 325 Mg Tab) 650 mg PO Q4H PRN PRN Reason: Pain or Fever Stop: 10/13/21 12:40 Last Admin: 09/14/21 12:19 Dose: 650 mg Documented by: Al Hydrox/Mg Hydrox/Simethicone (Aluminum/Magnesium Susp 30 Ml Udc) 15 ml PO Q4H PRN PRN Reason: Dyspepsia Stop: 10/13/21 12:40 Folic Acid (Folic Acid 1 Mg Tab) 1 mg PO QAM [facility] Stop: 10/13/21 12:40 Last Admin: 09/14/21 08:12 Dose: 1 mg Documented by: Gabapentin (Gabapentin 300 Mg Cap) 300 mg PO BID [facility] Stop: 10/14/21 20:59 Promethazine HCl 12.5 mg/ (Sodium Chloride) 50.5 mls @ 202 mls/hr IV Q6H PRN PRN Reason: Nausea And Vomiting Stop: 10/13/21 12:40 Ceftriaxone Sodium 2,000 mg/ (Dextrose) 70 mls @ 140 mls/hr IV DAILY [facility]; Protocol Stop: 09/19/21 08:59 Last Infusion: 09/14/21 10:04 Dose: Infused Documented by: Ketorolac Tromethamine (Ketorolac Tromethamine 15 Mg/Ml Vial) 15 mg IV Q6H PRN PRN Reason: mod-sev pain Stop: 09/19/21 14:48 Lorazepam (Lorazepam 2 Mg/1 Ml Vial) 1 mg IV UD PRN; Protocol PRN Reason: EtOH Withdrawl AWSS Score 6,7 Stop: 10/14/21 14:58 Lorazepam (Lorazepam 2 Mg/1 Ml Vial) 2 mg IV UD PRN; Protocol PRN Reason: EtOH Withdrawl AWSS Score 8,9 Stop: 10/14/21 14:58 Lorazepam (Lorazepam 2 Mg/1 Ml Vial) 3 mg IV ONCE PRN; Protocol PRN Reason: EtOH Withdrawl AWSS Score >=10 Stop: 10/14/21 14:58 Magnesium Hydroxide (Magnesium Hydroxide Susp 30 Ml Udc) 30 ml PO Q12H PRN PRN Reason: Constipation Stop: 10/13/21 12:40 Polyethylene Glycol (Polyethylene (Miralax) 17 Gm Pack) 17 gm PO DAILY PRN PRN Reason: Constipation Stop: 10/13/21 12:40 Thiamine HCl (Thiamine Hcl 100 Mg Tab) 100 mg PO QAM SUSANNE Stop: 10/13/21 12:40 Last Admin: 09/14/21 08:12 Dose: 100 mg Documented by: (1) Intentional overdose Encounter type: initial encounter Qualified Code(s): T50.902A - Poisoning by unspecified drugs, medicaments and biological substances, intentional self-harm, initial encounter (2) Alcoholic intoxication Complication of substance-induced condition: with unspecified complication Qualified Code(s): F10.929 - Alcohol use, unspecified with intoxication, unspecified
[2021-09-14] MEDS: GABAPENTIN 300 MG CAP PO SCH ×2 (16:57→21:09)
[2021-09-14] MEDS ORDERED: GABAPENTIN 300 MG CAP PO SCH (21:00)
[2021-09-15 06:09] LABS: Basophils # (auto) 0.05 K/uL (0-0.2); Basophils % (auto) 0.4 %; Eosinophils # (auto) 0.17 K/uL (0-0.5); Eosinophils % (auto) 1.3 %; Hemoglobin 14.4 g/dL (12.0-16.0); Immature Granulocytes # (auto) 0.08 K/uL (0.00-0.02); Immature Granulocytes % (auto) 0.6 %; Lymphocytes # (auto) 2.92 K/uL (1.2-3.4); Lymphocytes % (auto) 22.9 %; Mean Corpuscular Hemoglobin 32.4 pg (25-34); Mean Corpuscular Hgb Conc 34.3 g/dL (32-36); Mean Corpuscular Volume 94.4 fL (80-100); Mean Platelet Volume 10.6 fL (7.4-10.4); Monocytes % (auto) 7.1 %; Neutrophils # (auto) 8.61 K/uL (1.4-6.5); Neutrophils % (auto) 67.7 %; Platelet Count 296 K/uL (130-400); RDW Coefficient of Variation 12.1 % (11.5-14.5); RDW Standard Deviation 41.2 fL (36.4-46.3); Red Blood Count 4.45 M/uL (4.2-5.4); White Blood Count 12.73 K/uL (4.8-10.8)
[2021-09-15 06:24] LABS: Albumin Level 4.3 gm/dl (3.4-5.0); BUN Creatinine Ratio 13.8 (10-20); Bilirubin Direct 0.1 mg/dl (0-0.2); Bilirubin,Total 0.3 mg/dl (0.2-1.0); Calcium 9.8 mg/dl (8.5-10.1); Creatinine Clr Calc Pharmacy 128.1 ml/min; Est GFR (African American) 110.4 ml/min; Est GFR (Non-African American) 95.2 ml/min; Phosphorus 3.9 mg/dl (2.5-4.9); Potassium 3.9 mmol/L (3.5-5.1); Total Protein 7.7 gm/dl (6.0-8.3)
[2021-09-15] MEDS: FOLIC ACID 1 MG TAB PO SCH (09:08)
[2021-09-15] MEDS: THIAMINE HCL 100 MG TAB PO SCH (09:08)
[2021-09-15] MEDS: GABAPENTIN 300 MG CAP PO SCH ×3 (09:08→21:19)
[2021-09-15] MEDS: cefTRIAXone SODIUM 2,000 MG in DEXTROSE 5% 50 ML IV SCH (09:29)
[2021-09-15] MEDS: ENOXAPARIN INJ 40 MG/0.4 ML SYR SQ SCH (09:29)
--- NOTE | 2021-09-15 10:53 | Hospitalist Progress Note ---
Date of Service September 15, 2021 Assessment & Plan (1) Intentional overdose: (2) Alcoholic intoxication: (3) Suicide attempt: (4) Laceration of multiple sites: (5) Transaminitis: (6) Hypokalemia: Plan: This is a 21-year-old female who has significant past medical history of depression with anxiety and alcohol abuse who presents to ED via EMS with a 302 petition secondary to suicide attempt. Given patient's current condition with alcohol intoxication, evidence of active suicide attempt with Benadryl overdose and numerous cuts and excoriations to extremities, arms and abdomen it is felt that 302 petition should be upheld. Once medically stable patient requires inpatient psychiatric evaluation and further treatment. Also recommended would be alcoholic rehab. Intentional overdose with benadryl and alcohol with multiple superficial cuts on extremity/body as suicide attempt Alcohol abuse with intoxication- at risk for withdrawal - last drink the night before presentation- around 09/12 night or 09/13 hydrologist- 2 days from last drink and CIWA score remains low with no signs of withdrawal. However she remains at risk given her drinking history and alcohol level on presentation. On alcohol withdrawal protocol with ativan prn but has not required. On gabapentin tid to help with the pain as well as withdrawal. Continue thiamine, folate, multivitamin - Toradol prn for pain along with tylenol - Local wound care - Psych and CM following. She will need inpatient mental health treatment prior to enrolment in any rehab program per psych Abnormal UA- r/o UTI- on ceftriaxone pending urine clx results. ABx to also prevent any wound infection. Abnormal TSH- fT4 normal. Recommend repeat TFT in 4-6 weeks and follow up with PCP. Elevated LFTs- likley from alcohol abuse, improving. Hepatitis panel pending. Recheck intermittently Depression with anxiety- was on lexapro in the past but hasn't taken for couple years. Defer to psych. DVT prophylaxis- lovenox Dispo: Will need to completely detox- 2 more days, will then need to go to inpatient psych facility. Psych following Admission and Anticipated Discharge Date Admission Date: September 13, 2021 Subjective Patient was seen and examined at bedside. Flat affect, awake alert, conversing well. Denies any new issues. Pain is controlled. No withdrawal symptoms. No fever, chills, chest pain, shortness of breath. Physical Exam Physical Exam: General: Lying comfortably in bed, not in distress, on room air HEENT: EOMI, CHRISTIAN, MMM Chest: Clear breath sounds bilaterally, no wheezes or crackles CVS: Regular rate and rhythm, normal heart sounds, no murmur Abdomen: Soft, non tender, not distended, normal bowel sounds Neuro: Awake, alert, oriented, conversing well, non focal Extremities: No cyanosis, clubbing or edema. Left thigh superficial cut wounds with suture and glued- does not look infected. Bilateral forearm cut wounds with suture and glued, mild serous drainage- no purulence. No cellulitis. Results & Data Results & Data ([facility]) Vital Signs (Past 12 Hours) Vital Signs Temp Pulse Pulse Resp BP Pulse Ox 09/15/21 08:00 62 09/15/21 07:14 36.7 C 73 15 112/73 98 09/15/21 04:05 37.5 C 75 16 118/79 97 09/15/21 00:00 36.9 C 72 16 125/84 99 Laboratory Results Short CBC 09/15/21 Range/Units 05:24 WBC 12.73 H (4.8-10.8) K/uL Hgb 14.4 (12.0-16.0) g/dL Hct 42.0 (37-47) % Plt Count 296 (130-400) K/uL BMP 09/15/21 05:24 Sodium 135 L Potassium 3.9 Chloride 103 Carbon Dioxide 24 BUN 12 Creatinine 0.87 Glucose 100 H Calcium 9.8 Liver Function 09/15/21 Range/Units 05:24 Total Bilirubin 0.3 (0.2-1.0) mg/dl Direct Bilirubin 0.1 (0-0.2) mg/dl AST 55 H (13-39) U/L ALT 89 H (7-52) U/L Alkaline Phosphatase 59 (34-104) U/L Albumin 4.3 (3.4-5.0) gm/dl Medications Administered Current Inpatient Medications Acetaminophen (Acetaminophen 325 Mg Tab) 650 mg PO Q4H PRN PRN Reason: Pain or Fever Stop: 10/13/21 12:40 Last Admin: 09/14/21 12:19 Dose: 650 mg Documented by: Al Hydrox/Mg Hydrox/Simethicone (Aluminum/Magnesium Susp 30 Ml Udc) 15 ml PO Q4H PRN PRN Reason: Dyspepsia Stop: 10/13/21 12:40 Enoxaparin Sodium (Enoxaparin Inj 40 Mg/0.4 Ml Syr) 40 mg SQ QAM [facility] Stop: 10/15/21 08:59 Last Admin: 09/15/21 09:29 Dose: 40 mg Documented by: Folic Acid (Folic Acid 1 Mg Tab) 1 mg PO QAM [facility] Stop: 10/13/21 12:40 Last Admin: 09/15/21 09:08 Dose: 1 mg Documented by: Gabapentin (Gabapentin 300 Mg Cap) 300 mg PO TID [facility] Stop: 10/14/21 15:44 Last Admin: 09/15/21 09:08 Dose: 300 mg Documented by: Promethazine HCl 12.5 mg/ (Sodium Chloride) 50.5 mls @ 202 mls/hr IV Q6H PRN PRN Reason: Nausea And Vomiting Stop: 10/13/21 12:40 Ceftriaxone Sodium 2,000 mg/ (Dextrose) 70 mls @ 140 mls/hr IV DAILY [facility]; Protocol Stop: 09/19/21 08:59 Last Infusion: 09/15/21 10:25 Dose: Infused Documented by: Ketorolac Tromethamine (Ketorolac Tromethamine 15 Mg/Ml Vial) 15 mg IV Q6H PRN PRN Reason: mod-sev pain Stop: 09/19/21 14:48 Lorazepam (Lorazepam 2 Mg/1 Ml Vial) 1 mg IV UD PRN; Protocol PRN Reason: EtOH Withdrawl AWSS Score 6,7 Stop: 10/14/21 14:58 Lorazepam (Lorazepam 2 Mg/1 Ml Vial) 2 mg IV UD PRN; Protocol PRN Reason: EtOH Withdrawl AWSS Score 8,9 Stop: 10/14/21 14:58 Lorazepam (Lorazepam 2 Mg/1 Ml Vial) 3 mg IV ONCE PRN; Protocol PRN Reason: EtOH Withdrawl AWSS Score >=10 Stop: 10/14/21 14:58 Magnesium Hydroxide (Magnesium Hydroxide Susp 30 Ml Udc) 30 ml PO Q12H PRN PRN Reason: Constipation Stop: 10/13/21 12:40 Polyethylene Glycol (Polyethylene (Miralax) 17 Gm Pack) 17 gm PO DAILY PRN PRN Reason: Constipation Stop: 10/13/21 12:40 Thiamine HCl (Thiamine Hcl 100 Mg Tab) 100 mg PO QAM [facility] Stop: 10/13/21 12:40 Last Admin: 09/15/21 09:08 Dose: 100 mg Documented by: (1) Intentional overdose Encounter type: initial encounter Qualified Code(s): T50.902A - Poisoning by unspecified drugs, medicaments and biological substances, intentional self-harm, initial encounter (2) Alcoholic intoxication Complication of substance-induced condition: with unspecified complication Qualified Code(s): F10.929 - Alcohol use, unspecified with intoxication, unspecified
[2021-09-15] MEDS: ACETAMINOPHEN 325 MG TAB PO PRN (13:00)
--- NOTE | 2021-09-15 15:02 | Psychiatric Progress Note ---
Date of Service September 15, 2021 Impression / Recommendations Impression 21 yo woman with history of alcohol use disorder and depression admitted medically after suicide attempt via polypharmacy overdose including ETOH and Benadryl with multiple superficial cuts on arms/body with 302 warrant. Elevated TSH but normal free T4. Diagnostically consistent with MDD versus substance- induced depression. Acute risk of self-harm remains elevated and high given suicide attempt requiring medical admission, major depressive symptoms, limited insight, substance use, high psychic distress. Given elevated risk of harm to self they meet criteria for inpatient psychiatric care for diagnostic clarif ication, safety/stabilization, development of additional coping skills, medication management and disposition/safety planning once medically stable. If they do not agree to voluntary treatment at that time they will meet criteria for 302 status based on severity of suicide attempt and ongoing modifiable risk factors. -Continue 1-on-1 for risk of harm to self -Do not discharge or allow to leave AMA -Hold psych medications for now -Once medically cleared plan for psychiatric hospitalization (either 201 or 302 status). (1) Major depression, recurrent: (2) Intentional overdose: (3) Alcoholic intoxication: (4) Laceration of multiple sites: (5) TSH elevation: see above Risk Factors Assessment Do You Have Access To A Gun?: No Interval History Identifying Information Wanda is a 21 yo woman from [place] with history of depression, alcohol use disorder and self-harm presented via 302 warrant for suicide attempt via polypharmacy overdose. Chief Complaint "I'm ok". Review of Systems Notes Reports stable sleep and appetite. Subjective Subjective Patient was seen & assessed and interval progress reviewed. Remains medically admitted currently being monitored for alcohol withdrawal. Denies SI. Remains ambivalent about surviving attempt. Denies any other symptoms or concerns. Understands and agrees with plan for psych admission once medically stable. Physical Exam Psychiatric Orientation: alert and oriented x 3 Apperance: appropriately dressed and appropriately groomed Eye Contact: good eye contact Motor Behavior: no abnormal motor movements Speech: normal rate/rhythm/volume of speech Affect: + depressed affect Mood: + depressed mood Thought Process: goal directed thought process Thought Content: reality based without delusions Suicidal Thoughts: denies suicidal thoughts Homicidal Thoughts: denies homicidal thoughts Hallucinations: no auditory hallucinations and no visual hallucinations Cognition: attention grossly intact and language grossly intact Estimated Intelligence: consistent with education level Insight: + limited insight Judgement: + limited judgement Vital Signs (Past 24 Hours) Last Vital Signs Temp 36.7 C 09/15/21 07:14 Pulse 79 09/15/21 11:00 Resp 14 09/15/21 11:00 BP 127/88 09/15/21 11:00 Pulse Ox 97 09/15/21 11:00 Results & Data ([facility]) Laboratory Results Laboratory Results - last 24 hr 09/15/21 09/15/21 05:24 05:24 WBC 12.73 H RBC 4.45 Hgb 14.4 Hct 42.0 MCV 94.4 MCH 32.4 MCHC 34.3 RDW Std Deviation 41.2 RDW Coeff of Lynn 12.1 Plt Count 296 MPV 10.6 H Immature Gran % (Auto) 0.6 Neut % (Auto) 67.7 Lymph % (Auto) 22.9 Major % (Auto) 7.1 Eos % (Auto) 1.3 Baso % (Auto) 0.4 Neut # (Auto) 8.61 H Lymph # (Auto) 2.92 Major # (Auto) 0.90 H Eos # (Auto) 0.17 Baso # (Auto) 0.05 Immature Gran # (Auto) 0.08 H Sodium 135 L Potassium 3.9 Chloride 103 Carbon Dioxide 24 Anion Gap 8 BUN 12 Creatinine 0.87 Est Cr Clr Drug Dosing 128.1 Est GFR ( Amer) 110.4 Est GFR (Non-Af Amer) 95.2 BUN/Creatinine Ratio 13.8 Glucose 100 H Calcium 9.8 Phosphorus 3.9 Total Bilirubin 0.3 Direct Bilirubin 0.1 AST 55 H ALT 89 H Alkaline Phosphatase 59 Total Protein 7.7 Albumin 4.3 Current Inpatient Medications Current Inpatient Medications: Current Inpatient Medications Acetaminophen (Acetaminophen 325 Mg Tab) 650 mg PO Q4H PRN PRN Reason: Pain or Fever Stop: 10/13/21 12:40 Last Admin: 09/15/21 13:00 Dose: 650 mg Documented by: Al Hydrox/Mg Hydrox/Simethicone (Aluminum/Magnesium Susp 30 Ml Udc) 15 ml PO Q4H PRN PRN Reason: Dyspepsia Stop: 10/13/21 12:40 Enoxaparin Sodium (Enoxaparin Inj 40 Mg/0.4 Ml Syr) 40 mg SQ QAM [facility] Stop: 10/15/21 08:59 Last Admin: 09/15/21 09:29 Dose: 40 mg Documented by: Folic Acid (Folic Acid 1 Mg Tab) 1 mg PO QAM [facility] Stop: 10/13/21 12:40 Last Admin: 09/15/21 09:08 Dose: 1 mg Documented by: Gabapentin (Gabapentin 300 Mg Cap) 300 mg PO TID [facility] Stop: 10/14/21 15:44 Last Admin: 09/15/21 13:00 Dose: 300 mg Documented by: Promethazine HCl 12.5 mg/ (Sodium Chloride) 50.5 mls @ 202 mls/hr IV Q6H PRN PRN Reason: Nausea And Vomiting Stop: 10/13/21 12:40 Ceftriaxone Sodium 2,000 mg/ (Dextrose) 70 mls @ 140 mls/hr IV DAILY [facility]; Protocol Stop: 09/19/21 08:59 Last Infusion: 09/15/21 10:25 Dose: Infused Documented by: Ketorolac Tromethamine (Ketorolac Tromethamine 15 Mg/Ml Vial) 15 mg IV Q6H PRN PRN Reason: mod-sev pain Stop: 09/19/21 14:48 Lorazepam (Lorazepam 2 Mg/1 Ml Vial) 1 mg IV UD PRN; Protocol PRN Reason: EtOH Withdrawl AWSS Score 6,7 Stop: 10/14/21 14:58 Lorazepam (Lorazepam 2 Mg/1 Ml Vial) 2 mg IV UD PRN; Protocol PRN Reason: EtOH Withdrawl AWSS Score 8,9 Stop: 10/14/21 14:58 Lorazepam (Lorazepam 2 Mg/1 Ml Vial) 3 mg IV ONCE PRN; Protocol PRN Reason: EtOH Withdrawl AWSS Score >=10 Stop: 10/14/21 14:58 Magnesium Hydroxide (Magnesium Hydroxide Susp 30 Ml Udc) 30 ml PO Q12H PRN PRN Reason: Constipation Stop: 10/13/21 12:40 Polyethylene Glycol (Polyethylene (Miralax) 17 Gm Pack) 17 gm PO DAILY PRN PRN Reason: Constipation Stop: 10/13/21 12:40 Thiamine HCl (Thiamine Hcl 100 Mg Tab) 100 mg PO QAM [facility] Stop: 10/13/21 12:40 Last Admin: 09/15/21 09:08 Dose: 100 mg Documented by: (1) Intentional overdose Encounter type: initial encounter Qualified Code(s): T50.902A - Poisoning by unspecified drugs, medicaments and biological substances, intentional self-harm, initial encounter (2) Alcoholic intoxication Complication of substance-induced condition: with unspecified complication Qualified Code(s): F10.929 - Alcohol use, unspecified with intoxication, unspecified
[2021-09-15] MEDS: KETOROLAC TROMETHAMINE 15 MG/ML VIAL IV PRN (21:19)
[2021-09-16] MEDS: ACETAMINOPHEN 325 MG TAB PO PRN ×2 (04:17→12:26)
[2021-09-16] MEDS: ENOXAPARIN INJ 40 MG/0.4 ML SYR SQ SCH (08:11)
[2021-09-16] MEDS: THIAMINE HCL 100 MG TAB PO SCH (08:12)
[2021-09-16] MEDS: FOLIC ACID 1 MG TAB PO SCH (08:12)
[2021-09-16] MEDS: GABAPENTIN 300 MG CAP PO SCH ×3 (08:12→20:13)
[2021-09-16] MEDS: cefTRIAXone SODIUM 2,000 MG in DEXTROSE 5% 50 ML IV SCH (08:13)
--- NOTE | 2021-09-16 11:47 | Psychiatric Progress Note ---
Date of Service September 16, 2021 Impression / Recommendations Impression 21 yo woman with history of alcohol use disorder and depression admitted medically after suicide attempt via polypharmacy overdose including ETOH and Benadryl with multiple superficial cuts on arms/body with 302 warrant. Elevated TSH but normal free T4. Diagnostically consistent with MDD versus substance- induced depression. Acute risk of self-harm remains elevated and high given suicide attempt requiring medical admission, major depressive symptoms, limited insight, substance use, high psychic distress. Given elevated risk of harm to self they meet criteria for inpatient psychiatric care for diagnostic clarif ication, safety/stabilization, development of additional coping skills, medication management and disposition/safety planning once medically stable. If they do not agree to voluntary treatment at that time they will meet criteria for 302 status based on severity of suicide attempt and ongoing modifiable risk factors. 09/16/21: continues to have ambivalence about surviving attempt, once medically clear plan for inpt psych tx. Continue with AWSS monitoring. -Continue 1-on-1 for risk of harm to self -Do not discharge or allow to leave AMA -Hold psych medications for now -Once medically cleared plan for psychiatric hospitalization (either 201 or 302 status). (1) Major depression, recurrent: (2) Intentional overdose: (3) Alcoholic intoxication: (4) Laceration of multiple sites: (5) TSH elevation: see above Risk Factors Assessment Do You Have Access To A Gun?: No Interval History Identifying Information Wanda is a 21 yo woman from [place] with history of depression, alcohol use disorder and self-harm presented via 302 warrant for suicide attempt via polypharmacy overdose. Chief Complaint "I'm ok". Review of Systems Notes stable sleep and appetite Subjective Subjective Patient was seen & assessed and interval progress reviewed. Denies SI today. Sleeping this morning but awakens to speak briefly. Denies any other concerns. Denies any withdrawal side effects. Remains agreeable to vol psych inpt tx once medically clear. Physical Exam Psychiatric Orientation: alert and oriented x 3 Apperance: appropriately dressed and appropriately groomed Eye Contact: good eye contact Motor Behavior: no abnormal motor movements Speech: normal rate/rhythm/volume of speech Affect: + constricted affect Mood: + depressed mood Thought Process: goal directed thought process Thought Content: reality based without delusions Suicidal Thoughts: denies suicidal thoughts Homicidal Thoughts: denies homicidal thoughts Hallucinations: no auditory hallucinations and no visual hallucinations Cognition: attention grossly intact and language grossly intact Estimated Intelligence: consistent with education level Insight: + limited insight Judgement: + limited judgement Vital Signs (Past 24 Hours) Last Vital Signs Temp 36.6 C 09/16/21 11:45 Pulse 79 09/16/21 11:45 Resp 16 09/16/21 11:45 BP 130/87 09/16/21 11:45 Pulse Ox 95 09/16/21 11:45 Results & Data ([facility]) Current Inpatient Medications Current Inpatient Medications: Current Inpatient Medications Acetaminophen (Acetaminophen 325 Mg Tab) 650 mg PO Q4H PRN PRN Reason: Pain or Fever Stop: 10/13/21 12:40 Last Admin: 09/16/21 04:17 Dose: 650 mg Documented by: Al Hydrox/Mg Hydrox/Simethicone (Aluminum/Magnesium Susp 30 Ml Udc) 15 ml PO Q4H PRN PRN Reason: Dyspepsia Stop: 10/13/21 12:40 Enoxaparin Sodium (Enoxaparin Inj 40 Mg/0.4 Ml Syr) 40 mg SQ QAM [facility] Stop: 10/15/21 08:59 Last Admin: 09/16/21 08:11 Dose: 40 mg Documented by: Folic Acid (Folic Acid 1 Mg Tab) 1 mg PO QAM [facility] Stop: 10/13/21 12:40 Last Admin: 09/16/21 08:12 Dose: 1 mg Documented by: Gabapentin (Gabapentin 300 Mg Cap) 300 mg PO TID [facility] Stop: 10/14/21 15:44 Last Admin: 09/16/21 08:12 Dose: 300 mg Documented by: Promethazine HCl 12.5 mg/ (Sodium Chloride) 50.5 mls @ 202 mls/hr IV Q6H PRN PRN Reason: Nausea And Vomiting Stop: 10/13/21 12:40 Ceftriaxone Sodium 2,000 mg/ (Dextrose) 70 mls @ 140 mls/hr IV DAILY [facility]; Protocol Stop: 09/19/21 08:59 Last Infusion: 09/16/21 09:08 Dose: Infused Documented by: Ketorolac Tromethamine (Ketorolac Tromethamine 15 Mg/Ml Vial) 15 mg IV Q6H PRN PRN Reason: mod-sev pain Stop: 09/19/21 14:48 Last Admin: 09/15/21 21:19 Dose: 15 mg Documented by: Lorazepam (Lorazepam 2 Mg/1 Ml Vial) 1 mg IV UD PRN; Protocol PRN Reason: EtOH Withdrawl AWSS Score 6,7 Stop: 10/14/21 14:58 Lorazepam (Lorazepam 2 Mg/1 Ml Vial) 2 mg IV UD PRN; Protocol PRN Reason: EtOH Withdrawl AWSS Score 8,9 Stop: 10/14/21 14:58 Lorazepam (Lorazepam 2 Mg/1 Ml Vial) 3 mg IV ONCE PRN; Protocol PRN Reason: EtOH Withdrawl AWSS Score >=10 Stop: 10/14/21 14:58 Magnesium Hydroxide (Magnesium Hydroxide Susp 30 Ml Udc) 30 ml PO Q12H PRN PRN Reason: Constipation Stop: 10/13/21 12:40 Polyethylene Glycol (Polyethylene (Miralax) 17 Gm Pack) 17 gm PO DAILY PRN PRN Reason: Constipation Stop: 10/13/21 12:40 Thiamine HCl (Thiamine Hcl 100 Mg Tab) 100 mg PO QAM [facility] Stop: 10/13/21 12:40 Last Admin: 09/16/21 08:12 Dose: 100 mg Documented by: (1) Intentional overdose Encounter type: initial encounter Qualified Code(s): T50.902A - Poisoning by unspecified drugs, medicaments and biological substances, intentional self-harm, initial encounter (2) Alcoholic intoxication Complication of substance-induced condition: with unspecified complication Qualified Code(s): F10.929 - Alcohol use, unspecified with intoxication, unspecified
--- NOTE | 2021-09-16 14:46 | Hospitalist Progress Note ---
Date of Service September 16, 2021 Assessment & Plan (1) Intentional overdose: (2) Alcoholic intoxication: (3) Suicide attempt: (4) Laceration of multiple sites: (5) Transaminitis: (6) Hypokalemia: Plan: This is a 21-year-old female who has significant past medical history of depression with anxiety and alcohol abuse who presents to ED via EMS with a 302 petition secondary to suicide attempt. Intentional overdose with benadryl and alcohol with multiple superficial cuts on extremity/body as suicide attempt Alcohol abuse with intoxication- at risk for withdrawal - last drink the night before presentation- around 09/12 night or 09/13 order tracer- 3 days from last drink and CIWA score remains low with no signs of withdrawal. However she remains at risk given her drinking history and alcohol level on presentation. On alcohol withdrawal protocol with ativan prn but has not required. On gabapentin tid to help with the pain as well as withdrawal. Continue thiamine, folate, multivitamin - Toradol prn for pain along with tylenol - Local wound care - Psych and CM following. She will need inpatient mental health treatment prior to enrolment in any rehab program per psych Abnormal UA- urine clx negative. Rocephin discontinued. Abnormal TSH- fT4 normal. Recommend repeat TFT in 4-6 weeks and follow up with PCP. Elevated LFTs- likely from alcohol abuse, improving. Hepatitis panel pending. Recheck LFTs intermittently Depression with anxiety- was on lexapro in the past but hasn't taken for couple years. Defer to psych. DVT prophylaxis- lovenox Dispo: Anticipate will be medically clear for discharge tomorrow- will coordinate with psych Admission and Anticipated Discharge Date Admission Date: September 13, 2021 Subjective No new issues. Pain is controlled. States she took a dose of toradol last night and it helped her really well. No fever, chills, chest pain, shortness of breath, nausea, vomiting. Physical Exam Physical Exam: General: Lying comfortably in bed, not in distress, on room air HEENT: EOMI, CHRISTIAN, MMM Chest: Clear breath sounds bilaterally, no wheezes or crackles CVS: Regular rate and rhythm, normal heart sounds, no murmur Abdomen: Soft, non tender, not distended, normal bowel sounds Neuro: Awake, alert, oriented, conversing well, non focal Extremities: No cyanosis, clubbing or edema. Left thigh superficial cut wounds and bilateral forearm cut wounds with suture and glued Flat affect Results & Data Results & Data ([facility]) Vital Signs (Past 12 Hours) Vital Signs Temp Pulse Pulse Resp BP Pulse Ox 09/16/21 11:45 36.6 C 79 16 130/87 95 09/16/21 07:48 73 09/16/21 07:27 36.6 C 70 16 136/82 99 09/16/21 04:04 36.7 C 16 137/72 97 (1) Intentional overdose Encounter type: initial encounter Qualified Code(s): T50.902A - Poisoning by unspecified drugs, medicaments and biological substances, intentional self-harm, initial encounter (2) Alcoholic intoxication Complication of substance-induced condition: with unspecified complication Qualified Code(s): F10.929 - Alcohol use, unspecified with intoxication, unspecified
[2021-09-16] MEDS: KETOROLAC TROMETHAMINE 15 MG/ML VIAL IV PRN (20:14)
[2021-09-17] MEDS: THIAMINE HCL 100 MG TAB PO SCH (08:15)
[2021-09-17] MEDS: GABAPENTIN 300 MG CAP PO SCH (08:15)
[2021-09-17] MEDS: ENOXAPARIN INJ 40 MG/0.4 ML SYR SQ SCH (08:15)
[2021-09-17] MEDS: FOLIC ACID 1 MG TAB PO SCH (08:15)
[2021-09-17 08:24] LABS: Hemoglobin 13.7 g/dL (12.0-16.0); Mean Corpuscular Hemoglobin 32.2 pg (25-34); Mean Corpuscular Hgb Conc 34.3 g/dL (32-36); Mean Corpuscular Volume 93.9 fL (80-100); Mean Platelet Volume 10.4 fL (7.4-10.4); Platelet Count 258 K/uL (130-400); RDW Coefficient of Variation 12.1 % (11.5-14.5); RDW Standard Deviation 40.8 fL (36.4-46.3); Red Blood Count 4.26 M/uL (4.2-5.4)
[2021-09-17 08:41] LABS: ALC (manual) 2.47 K/uL (1.2-3.4); ANC (manual) 9.63 K/uL (1.4-6.5); Basophils # (manual) 0.23 K/uL (0-0.2); Basophils % (manual) 1.7 %; Eosinophils # (manual) 0.23 K/uL (0-0.5); Eosinophils % (manual) 1.7 %; Lymphocytes # (manual) 2.47 K/uL (1.2-3.4); Lymphocytes % (manual) 18.3 %; Monocytes # (manual) 0.95 K/uL (0.11-0.59); Neutrophils # (manual) 9.63 K/uL (1.4-6.5); Neutrophils % (manual) 71.3 %
[2021-09-17 08:46] LABS: Albumin Globulin Ratio 1.5 (0.9-2); Albumin Level 4.1 gm/dl (3.4-5.0); BUN Creatinine Ratio 16.5 (10-20); Bilirubin,Total 0.3 mg/dl (0.2-1.0); Calcium 9.6 mg/dl (8.5-10.1); Creatinine Clr Calc Pharmacy 141.3 ml/min; Globulin 2.8 gm/dl (2.5-4.0); Potassium 4.3 mmol/L (3.5-5.1); Total Protein 6.9 gm/dl (6.0-8.3)
[2021-09-17] MEDS ORDERED: cephALEXin 500 MG CAP PO SCH (09:00)
--- NOTE | 2021-09-17 10:10 | Discharge Summary ---
Date of Service September 17, 2021 Admission HPI Per Admitting Provider This is a 21-year-old female who has significant past medical history of depression with anxiety and alcohol abuse who presents to ED via EMS with a 302 petition secondary to suicide attempt. History obtained from ED provider and mother at bedside. Patient unable to give accurate history at this time. According to history patient sent her best friend a disturbing text message that was concerning for her safety. Police were called who performed a wellness check. Patient was found in the bathtub in bloody water with numerous cuts to her upper, lower extremities and abdomen. Also found was a empty tequila bot tle, a Benadryl bottle, and ibuprofen bottle and a pseudoephedrine bottle. After further questioning it was determined that patient took approximately 10- 15 Benadryl. It does not appear she took any ibuprofen or pseudoephedrine. She also drank half a bottle of tequila. According to mother patient has never had a suicide attempt in the past. She did previously do superficial cutting. Patient does drink on a daily basis per mother and they know it is a problem. They have been trying to get her to go to rehab, but she has been noncompliant. There is no known history of withdrawal. She does suffer from depression and anxiety and has sought counseling in the past, but per [facility] records appears this was back in 2019. She does not take any medications on a regular basis. It is not felt that she uses any illicit drug substances, but she does occasionally vape nicotine. Upon arrival to ED patient was very somnolent but otherwise hemodynamically stable. She was found to have an ethyl alcohol level of 179.2. Her salicylate and acetaminophen level was negative. She did have mild AST and ALT elevation at 70 and 106 respectively. She also had mild hypokalemia 3.4 and metabolic acidosis with a CO2 of 19 and a gap of 12. She had mild leukocytosis at 14.22. In ED she received 2 L IV fluid bolus and started on NSS with potassium supplementation. She also received IV magnesium. Due to numerous superficial cuts on abdomen, upper extremity and lower extremity it did require closure with Dermabond and Steri-Strips as well as some required sutures. Mother at bedside states patient has never had inpatient psychiatric evaluation. Admission Exam Per Admitting Provider Constitutional: WD/WN, vitals as above, NAD, lying in bed, awake but not communicating Head: Normocephalic, Atraumatic Eyes: PERRL, conjunctivae normal, anicteric sclerae ENMT: external ear and nose normal, oropharynx normal dry membranes Neck: trachea midline, no thyromegaly normal visual inspection Respiratory: normal respiratory effort, lungs clear to auscultation, no wheeze, rales, rhonchi. Normal insp/exp effort, no accessory muscle use Cardiovascular: RRR, no murmur, no edema Vessels: no JVD or carotid bruit Chest: normal inspection of chest Abdomen: normal bowel sounds, soft, nontender, no hepatosplenomegaly , superficial lacerations to abd wall Musculoskeletal: no cyanosis or clubbing, extremities motor strength 5/5 Skin: no rashes, warm and dry normal turgor , lacerations noted to b/l forearms and b/l upper extremities, dermabonded and steristrips in place Neurologic: PERRL, EOMI, accommodation nl, no face palsy, no dysarthria CN's II-XI intact bilaterally and moves all extremities Psychiatric: Alert but not oriented Lymphatic: no cervical or axillary lymphadenopathy : deferred Principal Diagnosis Intentional overdose with benadryl/alcohol with multiple superficial cuts as suicide attempt Discharge Exam General: Lying comfortably in bed, not in distress, on room air HEENT: EOMI, CHRISTIAN, MMM Chest: Clear breath sounds bilaterally, no wheezes or crackles CVS: Regular rate and rhythm, normal heart sounds, no murmur Abdomen: Soft, non tender, not distended, normal bowel sounds. Superficial cuts in abdomen- healing, non infected. Neuro: Awake, alert, oriented, conversing well, non focal Extremities: No cyanosis, clubbing or edema. Bilateral extremities superficial cut wounds with suture and glued. No signs of active infection or drainage. Flat affect Discharge Data Allergies Allergy/AdvReac Type Severity Reaction Status Date / Time animal dander Allergy Unknown cats Verified 09/14/21 14:52 house dust Allergy Unknown Unknown Verified 09/14/21 14:52 Penicillins Allergy Unknown Unknown Verified 09/14/21 14:52 weed pollen Allergy Unknown Unknown Verified 09/14/21 14:52 Consultations 09/13/21 08:25 ED Decision to Admit Stat 09/13/21 12:41 Consult Psychiatry Routine 09/13/21 12:59 Consult Behavioral Health Liaison Routine Hospital Course (1) Intentional overdose: (2) Alcoholic intoxication: (3) Suicide attempt: (4) Laceration of multiple sites: (5) Transaminitis: This is a 21-year-old female who has significant past medical history of depression with anxiety and alcohol abuse who presents to ED via EMS with a 302 petition secondary to suicide attempt. 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 However she remains at risk given her drinking history and alcohol level on presentation. On alcohol withdrawal protocol with ativan prn but has not required. On gabapentin low dose to help with her pain. Continue thiamine, folate, multivitamin. Continue keflex for few more days for the wound, doesn't look overtly infected and is healing. Continue local wound care Abnormal UA- urine clx negative. Rocephin discontinued. Abnormal TSH- fT4 normal. Recommend repeat TFT in 4-6 weeks and follow up with PCP. Elevated LFTs- likely from alcohol abuse vs fatty liver. Overall stable, Hepatitis panel pending. Recheck LFTs intermittently as indicated. Depression with anxiety- was on lexapro in the past but hasn't taken for couple years. Defer to psych. Dispo:Patient is medically clear to admit to inpatient [facility] facility. Discussed with psych liasion. Total Time Total Time Spent Total Time Spent (In Minutes): 25 Discharge Plan Discharge Items Patient Disposition: Home - Self-Care Reason For Visit: ALCOHOL OVERDOSE, BENADRYL OVERDOSE Discharge Diagnosis: Intentional overdose with benadryl/alcohol with multiple superficial cuts as Suicide attempt Activity: Resume your previous activity Non-emergency contact: Primary Care Provider Call non-emergency contact if: you have any medication questions, your symptoms worsen and you have a fever Follow-up/Referrals: PCP,NO [Primary Care Provider] - Diet: Regular Addtl Attending Provider Instructions: continue neurontin for pain continue keflex for 3 more days Recommend follow up liver function test and CBC with family doctor in 1-2 weeks. Recommend repeat thyroid test with family doctor in 4-6 weeks Local wound care Pending Studies at Discharge: Yes Studies:: Hepatitis panel Stand-Alone Forms: My [facility], Smoking Cessation Medications and DC Order Prescriptions: No Action No Known Home Medications RF: 0 Discharge Orders: Discharge Order (Routine); Ordered 09/17/21 Ordered By: William Sin Admission Data Admit Date/Time: 09/13/21 08:32 Attending Provider: William Sin Admit Provider: William Sin Primary Care Provider: PCP,NO Other Providers: William Sin ; Corie Purcell ; Ruby Joseph ; Corina Dutta
[2021-09-17 21:36] LABS: HBSAG NON-REACTIVE (NON-REACTIVE); Hepatitis A Antibody IgM NON-REACTIVE (NON-REACTIVE); Hepatitis B Core Antibody IgM NON-REACTIVE (NON-REACTIVE)
== END 2021-09-17 11:39 | disposition home or self-care (01) ==
LOC: ED 05:47 → 2S 08:32 → INTOOBSV 08:32 → 2S 11:33

== ENCOUNTER 2021-09-17 10:34 | Inpatient (IN) ==
[2021-09-17] MEDS ORDERED: SODIUM CHLORIDE 0.65% NA SOLN 45 ML (OCEAN) PRN (10:44)
[2021-09-17] MEDS ORDERED: ACETAMINOPHEN 325 MG TAB PO PRN (10:44)
[2021-09-17] MEDS ORDERED: BISMUTH SUBSALICYLATE LIQD 236 ML PO PRN (10:44)
[2021-09-17] MEDS ORDERED: hydrOXYzine HCl 25 MG TAB PO PRN ×2 (10:44)
[2021-09-17] MEDS ORDERED: ALUMINUM/MAGNESIUM SUSP 30 ML UDC PO PRN (10:44)
[2021-09-17] MEDS ORDERED: MAGNESIUM HYDROXIDE SUSP 30 ML UDC PO PRN (10:44)
--- NOTE | 2021-09-17 12:05 | History & Physical ---
Date of Service September 17, 2021 Impression / Recommendations Impression The patient is a 21 year old with a history of depression, self-harm and alcohol use who was admitted for suicide attempt via Benadryl, alcohol and with multiple self-inflicted cuts requiring sutures. Diagnostically consistent with MDD with anxious distress, alcohol use disorder, moderate, as well as likely substance- induced component to her depression. The patient is deemed unstable and requires psychiatric hospitalization for diagnostic clarification, safety and stabilization, medication management and development of further coping skills. Discussed medication treatment options in detail. Discussed risks, benefits and alternatives including fluoxetine and Wellbutrin. Patient would like to start and consented to fluoxetine for MDD and trazodone for insomnia. Reviewed side effects including but not limited to: GI, CALHOUN, sexual side effects, and counseled on black box warning of potential for emergence of or increased SI and need to let staff know should this occur or should they feel unsafe. Also discussed importance of seeking emergency care following discharge if this side effect occurs in the future. Reviewed risks of gabapentin including but not limited to respiratory depression if combined with alcohol, dizziness; she consents to continuing gabapentin. The patient's audit score and use history suggests problematic substance use. Brief intervention was offered and accepted. Intervention was greater than 5 minutes in length and included assessing readiness to quit, advice on how to reduce or abstain and to set a specific goal for this hospitalization. 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 The patient is in contemplative stage with regards to transtheoretical model of change. She's considering her residential treatment. The patient is advised to decrease consumption due to depressant effects and risk of interaction with prescription medications. The patient agreed to reduce alcohol use and is open to residential alcohol use treatment once psychiatrically stable and will be provided with recovery materials to continue to educate self on how to cope with their condition without using substances. We also discussed potential for medication assisted treatment as mood and LFTs improve. MNPR due to extensive lacerations which are in early stages of healing and requiring exposure to air so that she can have them uncovered in her room to aid with healing and reduce risk of friction and infection given new blisters. (1) MDD (major depressive disorder), recurrent episode, moderate: (2) Alcohol use disorder, moderate, dependence: (3) Suicide attempt: (4) TSH elevation: Will need PCP f/up in 4-6 weeks for repeat TSH and free T4 (5) Laceration of multiple sites: open to air, ster-strips, can shower with them; sutures will need to be removed in 2 weeks (6) Transaminitis: PCP follow-up in 1-2 weeks for repeat LFTs and CBC 09/17/21: The patient was admitted to the [facility] ([facility]) on q15 min checks (behavioral with suicide precautions) for safety. The patient will participate in group, recreational, and milieu therapies and will be offered additional individual and family sessions as clinically appropriate. -NRT gum -Continue gabapentin 300mg BID for pain relief (and off-label for benefits in alcohol use disorder) -Continue cephalexin 500mg BID for wound infection prevention (3 more days to end on 09/21) -Continue thiamine, folic acid (outside window for acute withdrawal so no need for AWSS) -Hold acetaminophen given elevated LFTs -Start fluoxetine 20mg qd for depression -Start trazodone 50mg qhs -As LFTs stabilize and mood improves could consider additional of MAT such as naltrexone Inventory Assets Strengths: employed, supportive family Needs: medication, coping skills, resources to stop using alcohol, additional outpatient supports Risk Factors Assessment Acute risk is high given recent suicide attempt, history of self-harm, depression and alcohol use. Most significant modifiable risk factors are to treat the depression, improve coping skills and address substance use, ideally she will agree to residential treatment after psychiatric stabilization. Male: No : No Do You Have Access To A Gun?: No Health Problems: No Mental Health Diagnoses: Yes Substance Use Disorders: Yes Previous Attempt: No Family History of Suicide: No Previous Psychiatric Hospitalization: No Hopelessness: Yes Smoker: Yes Protective Factors Assessment Employed: Yes Stable Relationships: Yes Supportive Family: Yes Psychiatric History Identifying Data WANDA ROMERO is a 21-year-old woman who currently lives in [place] with a roommate, has a history of depression and alcohol use, and was admitted on 09/17/21 11:45 on a 201 voluntary commitment for suicide attempt via polypharmacy overdose, alcohol ingestion and self-inflicted lacerations. Chief Complaint "I felt like it would be easier if I didn't have to live anymore". History of Present Illness Wanda, who prefers to go by Adrian, presents for admission from the medical unit after receiving care for her suicide attempt via overdose and close monitoring for alcohol withdrawal. She presented to the ED on 09/13/21 via EMS after she sent a vague but concerning text message to a friend who reached to police who did a welfare check. Upon entering Adrian's apartment they found her in the bathtub with multiple superficial and deep lacerations (on her abdomen, forearms and thighs with some requiring sutures) and minimally responsive having ingested Bendaryl (~10-15 tabs of 25mg pills) as well as possible ingestion of pseudoephedrine and Ibuprofen (but no tablets were missing) and alcohol (tequila) as a suicide attempt. While on the medical floor Adrian confirmed that the ingestion and cuts were part of a suicide attempt. She recalls trying to figure out how to pay her rent and her debt earlier that day because she was supposed to be moving in with her boyfriend so she had gotten out of her lease. This lead her to feel overwhelmed and that "it would be easier if I just didn't have to anything or live anymore and someone take care of my dog". She recalls thinking about this plan for about 1 month but felt so overwhelmed that day she acted on it. She feels like "I just don't have anything anymore". She had a lot of money saved up but due to the DUI she's had to keep paying fines and this has lead to financial instability. She can no longer live with her roommate as she had been planning to move in with her boyfriend for almost a yea so they had found a new roommate. She endorses a long history of depression, starting in middle school, which comes in waves and re-occurred over the past year since winter 2020. It has worsened recently and prompted her suicide attempt in the context of multiple psychosocial stressors including DUI in May 2021, financial debt, and her boyfriend moving away a few months ago and with breakup one week ago. She identifies depression symptoms including: hopelessness, worthlessness, guilt, helplessness, overwhelmed, low energy, social isolation, decreased sleep with awakenings (~4 hours per night). Appetite is stable. More recently an increase in anxiety with a few panic attacks in the last month. She denies any current active SI, still some periods of passive SI, but remains ambivalent about surviving. Notes that she was depressed even prior to drinking alcohol but now uses alcohol to cope with depression and she likes that it helps her sleep. She used to drink recreationally and then her use increased to drinking at night at home every night to relax and help with sleep. If she tries to go without it she doesn't sleep. She doesn't like that alcohol sometimes makes her feel hungover. Prior to her suicide attempt she and her family had been discussing option of seeking residential alcohol use treatment given her drinking pattern of daily use of tequila 5 shots up to 1/5th per day. Psychiatric ROS notable for pertinent positives of self-harm via cutting (starting at age 16, none for a few years, resumed with a few times per year but not regularly since age 16), struggles with concentration/jumps from thing to think, has difficulty sitting still. Pertinent negatives: denial of hx of anxiety prior to the last month, no history of naomie, no history of psychosis, no hx eating disorder. 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) Allergies Allergy/AdvReac Type Severity Reaction Status Date / Time animal dander Allergy Unknown cats Verified 09/14/21 14:52 house dust Allergy Unknown Unknown Verified 09/14/21 14:52 Penicillins Allergy Unknown Unknown Verified 09/14/21 14:52 weed pollen Allergy Unknown Unknown Verified 09/14/21 14:52 Home Medications Medication Instructions Recorded Confirmed Type acetaminophen 325 mg tablet 650 mg PO Q6 PRN #20 tab 09/17/21 Rx cephalexin 500 mg capsule 500 mg PO BID #6 cap 09/17/21 Rx folic acid 1 mg tablet 1 mg PO QAM #30 tab 09/17/21 Rx gabapentin 300 mg capsule 300 mg PO BID #10 cap 09/17/21 Rx polyethylene glycol 3350 17 gram 17 g PO DAILY PRN #30 ea 09/17/21 Rx oral powder packet (Miralax) thiamine HCl (vitamin B1) 100 mg 100 mg PO QAM #30 tab 09/17/21 Rx tablet Family History Family History of: Depression (maternal side), Anxiety (maternal side), Al coholism/Drug Abuse (maternal uncle ) and Other-List under Comment (ADHD on maternal side) Alcohol History Hx of Alcohol Use Over the Past 12 Months: Yes Daily for the last 7 months-mixes tequila and water. Drinks on average 5 shots up to 1/5th per day. No history of complicated withdrawal. No history of blackouts. History of legal consequences of DUI and kicked out of a concert at [employer] [place] [employer] and got a fine. Currently in the [facility] program to get charges expunged from her record. Smoking Use tobacco type: smokeless tobacco Smoking Status: Current every day smoker (via vaping) Substance History Denies Personal History Living Arrangements: Apartment (has a roommate ) Childhood: Grew up locally, attended [employer]. Her mother and grandmother live in town and are good supports. Has two younger siblings. Highest Grade Completed: Some College (2 years ago attended [employer] as undecided major but dropped out after a semester ) Employment Status: [employer] Employed ([employer]) Marital Status: Single Number Of Children: 0 Beliefs That Will Affect Care: None Current Legal Problems: Yes (DUI from 05/2021 in [facility] program currently ) Hx Legal Problems: No Hx Traumatic Life Events: No Additional Comments: Has a dog Titan Patient History Medical History ADHD Asthma Depression MDD (major depressive disorder), recurrent episode, moderate Migraine Surgical History No history of previous surgery Family History Uncle Asthma maternal Denies family history of Cervix cancer Ovarian cancer Breast cancer Colorectal cancer Uterine cancer Social History Smoking Status: Current every day smoker (via vaping) Tobacco Type: E-cigarettes / Vaping Cigarettes Per Day: Occasional vape pens; Hx Alcohol Use: Yes Alcohol type: hard liquor Hx Substance Use: No Preferred Language: [place] Communication Ability: Effective Tank Cooper Required: No Beliefs That Will Affect Care: None marital status: Single Current Living Situation: Other Current Living Situation Comment: Room mate current occupational status: employed and student Feels Safe at Home: Yes Assistive Devices: Glasses Review of Systems Review of Systems: All systems reviewed & are unremarkable except as noted in HPI & below Physical Exam Psychiatric: Orientation: alert and oriented x 3 Apperance: appropriately dressed and appropriately groomed Eye Contact: good eye contact Motor Behavior: no abnormal motor movements Speech: normal rate/rhythm/volume of speech Affect: + depressed affect Mood: + depressed mood Thought Process: goal directed thought process Thought Content: reality based without delusions Suicidal Thoughts: denies suicidal thoughts (feels safe in the hospital, attempt prior to admission), denies suicidal plan and denies suicidal intent Homicidal Thoughts: denies homicidal thoughts Hallucinations: no auditory hallucinations and no visual hallucinations Cognition: recent memory grossly intact, remote memory grossly intact, attention grossly intact and language grossly intact Estimated Intelligence: consistent with education level Insight: + fair insight Judgement: + limited judgement Skin: Has multiple lacerations on her bilateral forearms, thighs, abdomen. Examined her forearm lacerations which are extensive and currently no evidence of infection. Does have some blisters under three of the steri-strips which self-opened but no discharge or serosanguineous fluid. Exam Statement: A physical exam was performed on the medical floor by Dr. Sin for the purposes of medical clearance. I accept that physical as correct and adequate for the purposes of the inpatient physical exam. Results & Data (U) Diagnostic Findings Reviewed EKG, QTc<500 Current Inpatient Medications Current Inpatient Medications: Current Inpatient Medications Acetaminophen (Acetaminophen 325 Mg Tab) 650 mg PO Q4H PRN PRN Reason: Headache or Minor Fever Stop: 10/17/21 10:43 Al Hydrox/Mg Hydrox/Simethicone (Aluminum/Magnesium Susp 30 Ml Udc) 30 ml PO Q4H PRN PRN Reason: GI Upset Stop: 10/17/21 10:43 Bismuth Subsalicylate (Bismuth Subsalicylate Liqd 236 Ml) 15 ml PO PRN PRN PRN Reason: Loose Stool Stop: 10/17/21 10:43 Hydroxyzine HCl (Hydroxyzine Hcl 25 Mg Tab) 50 mg PO HSZ PRN PRN Reason: Insomnia Stop: 10/17/21 10:43 Hydroxyzine HCl (Hydroxyzine Hcl 25 Mg Tab) 25 mg PO Q4H PRN PRN Reason: Anxiety Stop: 10/17/21 10:43 Magnesium Hydroxide (Magnesium Hydroxide Susp 30 Ml Udc) 30 ml PO DAILY PRN PRN Reason: Constipation Stop: 10/17/21 10:43 Sodium Chloride (Sodium Chloride 0.65% Na Soln 45 Ml ([place])) 1 - 2 sprays NA PRN PRN PRN Reason: Nasal Dryness/Congestion Stop: 10/17/21 10:43
[2021-09-17] MEDS: NICOTINE POLACRILEX 2 MG GUM MT PRN ×2 (15:15→20:33)
[2021-09-17] MEDS: traZODone HCL 50 MG TAB PO SCH (20:26)
[2021-09-17] MEDS: GABAPENTIN 300 MG CAP PO SCH (20:27)
[2021-09-17] MEDS: cephALEXin 500 MG CAP PO SCH (20:28)
--- NOTE | 2021-09-18 08:45 | Psychiatric Progress Note ---
Date of Service September 18, 2021 Impression / Recommendations Impression The patient is a 21 year old with a history of depression, self-harm and alcohol use who was admitted for suicide attempt via Benadryl, alcohol and with multiple self-inflicted cuts requiring sutures. Diagnostically consistent with MDD with anxious distress, alcohol use disorder, moderate, as well as likely substance- induced component to her depression. The patient is deemed unstable and requires psychiatric hospitalization for diagnostic clarification, safety and stabilization, medication management and development of further coping skills. MNPR due to extensive lacerations which are in early stages of healing and requiring exposure to air so that she can have them uncovered in her room to aid with healing and reduce risk of friction and infection given new blisters. 09/18/21: Remains depressed. Residential substance use tx declined due to psychiatric acuity given recent attempt. She is agreeable to intensive outpatient treatment for alcohol use which she prefers to residential tx, wishes to pursue this. Wound care consult for blisters forming along more of her steri- strips concerning for possible allergic reaction, wondering if dressing change/alternative wound care is needed. Encouraged ongoing open to air and reducing friction when in her room. (1) MDD (major depressive disorder), recurrent episode, moderate: (2) Alcohol use disorder, moderate, dependence: (3) Suicide attempt: (4) TSH elevation: Will need PCP f/up in 4-6 weeks for repeat TSH and free T4 (5) Laceration of multiple sites: open to air, ster-strips, can shower with them; sutures will need to be removed in 2 weeks (6) Transaminitis: PCP follow-up in 1-2 weeks for repeat LFTs and CBC 09/18/21: Wound care consult for increased irritation along steri-strips. Continue with current medications and tx plan. 09/17/21: The patient was admitted to the [facility] ([facility] mental health unit) on q15 min checks (behavioral with suicide precautions) for safety. The patient will participate in group, recreational, and milieu therapies and will be offered additional individual and family sessions as clinically appropriate. -NRT gum -Continue gabapentin 300mg BID for pain relief (and off-label for benefits in alcohol use disorder) -Continue cephalexin 500mg BID for wound infection prevention (3 more days to end on 09/21) -Continue thiamine, folic acid (outside window for acute withdrawal so no need for AWSS) -Hold acetaminophen given elevated LFTs -Start fluoxetine 20mg qd for depression -Start trazodone 50mg qhs -As LFTs stabilize and mood improves could consider additional of MAT such as naltrexone Inventory Assets Strengths: employed, supportive family Needs: medication, coping skills, resources to stop using alcohol, additional outpatient supports Risk Factors Assessment Male: No : No Do You Have Access To A Gun?: No Health Problems: No Mental Health Diagnoses: Yes Substance Use Disorders: Yes Previous Attempt: No Family History of Suicide: No Previous Psychiatric Hospitalization: No Hopelessness: Yes Smoker: Yes Protective Factors Assessment Employed: Yes Stable Relationships: Yes Supportive Family: Yes Interval History Identifying Information PAT ROMERO is a 21-year-old woman who currently lives in [place] with a roommate, has a history of depression and alcohol use, and was admitted on 09/17/21 11:45 on a 201 voluntary commitment for suicide attempt via polypharmacy overdose, alcohol ingestion and self-inflicted lacerations. Chief Complaint "I'm ok". Review of Systems Sleep Information Total Hours of Sleep: 7.5 Sleep Comments: pt given trazodone per rn. pt on q-15 minute checks Meal Information Percent Meal Consumed - Lunch: 90 Percent Meal Consumed - Dinner: 100 Subjective Subjective Patient was seen & assessed and interval progress reviewed with treatment team nursing and social work. Fell asleep quickly last night with trazodone which she liked. Did have some awakenings overnight. No side effects from trazodone nor fluoxetine. Having more blisters forming along steri-strips, she's agreeable to wound care consult to assess if alternative dressing is needed. Was referred for inpatient residential alcohol use treatment but declined due to recent suicide attempt. She noted some relief at this as she would prefer intensive outpatient program for alcohol use. She prefers no further residential tx referrals be made. Signed IVANNA for social work to look into process for [facility] once she is stable for alcohol use treatment/outpatient dual diagnosis. Denies SI. Physical Exam Psychiatric Orientation: alert and oriented x 3 Apperance: appropriately dressed and appropriately groomed Eye Contact: good eye contact Motor Behavior: no abnormal motor movements Speech: normal rate/rhythm/volume of speech Affect: + depressed affect Mood: + depressed mood Thought Process: goal directed thought process Thought Content: reality based without delusions Suicidal Thoughts: denies suicidal thoughts (feels safe in the hospital, attempt prior to admission), denies suicidal plan and denies suicidal intent Homicidal Thoughts: denies homicidal thoughts Hallucinations: no auditory hallucinations and no visual hallucinations Cognition: recent memory grossly intact, remote memory grossly intact, attention grossly intact and language grossly intact Estimated Intelligence: consistent with education level Insight: + fair insight Judgement: + limited judgement Vital Signs (Past 24 Hours) Last Vital Signs Temp 36.4 C L 09/18/21 06:45 Pulse 87 09/18/21 06:46 Resp 16 09/18/21 06:45 BP 126/89 09/18/21 06:46 Pulse Ox 99 09/17/21 12:39 Results & Data ([facility]) Current Inpatient Medications Current Inpatient Medications: Current Inpatient Medications Al Hydrox/Mg Hydrox/Simethicone (Aluminum/Magnesium Susp 30 Ml Udc) 30 ml PO Q4H PRN PRN Reason: GI Upset Stop: 10/17/21 10:43 Bismuth Subsalicylate (Bismuth Subsalicylate Liqd 236 Ml) 15 ml PO PRN PRN PRN Reason: Loose Stool Stop: 10/17/21 10:43 Cephalexin HCl (Cephalexin 500 Mg Cap) 500 mg PO BID [facility] Stop: 09/20/21 20:59 Last Admin: 09/17/21 20:28 Dose: 500 mg Documented by: Fluoxetine HCl (Fluoxetine Hcl 20 Mg Cap) 20 mg PO QAM [facility] Stop: 10/18/21 08:59 Folic Acid (Folic Acid 1 Mg Tab) 1 mg PO QAM [facility] Stop: 10/18/21 08:59 Gabapentin (Gabapentin 300 Mg Cap) 300 mg PO BID [facility] Stop: 10/17/21 20:59 Last Admin: 09/17/21 20:27 Dose: 300 mg Documented by: Hydroxyzine HCl (Hydroxyzine Hcl 25 Mg Tab) 50 mg PO HSZ PRN PRN Reason: Insomnia Stop: 10/17/21 10:43 Hydroxyzine HCl (Hydroxyzine Hcl 25 Mg Tab) 25 mg PO Q4H PRN PRN Reason: Anxiety Stop: 10/17/21 10:43 Magnesium Hydroxide (Magnesium Hydroxide Susp 30 Ml Udc) 30 ml PO DAILY PRN PRN Reason: Constipation Stop: 10/17/21 10:43 Nicotine Polacrilex (Nicotine Polacrilex 2 Mg Gum) 1 piece MT PRN PRN PRN Reason: nicotine withdrawal Stop: 10/17/21 13:20 Last Admin: 09/17/21 20:33 Dose: 1 piece Documented by: Sodium Chloride (Sodium Chloride 0.65% Na Soln 45 Ml ([place])) 1 - 2 sprays NA PRN PRN PRN Reason: Nasal Dryness/Congestion Stop: 10/17/21 10:43 Thiamine HCl (Thiamine Hcl 100 Mg Tab) 100 mg PO QAM [facility] Stop: 10/18/21 08:59 Trazodone HCl (Trazodone Hcl 50 Mg Tab) 50 mg PO HS [facility] Stop: 10/17/21 21:59 Last Admin: 09/17/21 20:26 Dose: 50 mg Documented by: Mental Health & Subst Abuse Tx Therapist Name of Therapist: none Post Discharge Appointments Primary Care Physician Name Of Family Doctor: none
[2021-09-18] MEDS: GABAPENTIN 300 MG CAP PO SCH ×2 (08:50→21:55)
[2021-09-18] MEDS: cephALEXin 500 MG CAP PO SCH ×2 (08:50→21:54)
[2021-09-18] MEDS: THIAMINE HCL 100 MG TAB PO SCH (08:51)
[2021-09-18] MEDS: FLUoxetine HCL 20 MG CAP PO SCH (08:51)
[2021-09-18] MEDS: FOLIC ACID 1 MG TAB PO SCH (08:52)
[2021-09-18] MEDS: NICOTINE POLACRILEX 2 MG GUM MT PRN ×2 (09:25→15:12)
[2021-09-18] MEDS: traZODone HCL 50 MG TAB PO SCH (21:54)
--- NOTE | 2021-09-19 08:35 | Psychiatric Progress Note ---
Date of Service September 19, 2021 Impression / Recommendations Impression The patient is a 21 year old with a history of depression, self-harm and alcohol use who was admitted for suicide attempt via Benadryl, alcohol and with multiple self-inflicted cuts requiring sutures. Diagnostically consistent with MDD with anxious distress, alcohol use disorder, moderate, as well as likely substance- induced component to her depression. The patient is deemed unstable and requires psychiatric hospitalization for diagnostic clarification, safety and stabilization, medication management and development of further coping skills. MNPR due to extensive lacerations which are in early stages of healing and requiring exposure to air so that she can have them uncovered in her room to aid with healing and reduce risk of friction and infection given new blisters. 09/19/21: Remains depressed. Agreeable to intensive outpatient treatment for alcohol use which she prefers to residential tx, wishes to pursue this. (1) MDD (major depressive disorder), recurrent episode, moderate: (2) Alcohol use disorder, moderate, dependence: (3) Suicide attempt: (4) TSH elevation: Will need PCP f/up in 4-6 weeks for repeat TSH and free T4 (5) Laceration of multiple sites: open to air, ster-strips, can shower with them; sutures will need to be removed in 2 weeks (6) Transaminitis: PCP follow-up in 1-2 weeks for repeat LFTs and CBC 09/19/21: Continue with current medications and tx plan. 09/18/21: Wound care consult for increased irritation along steri-strips. Continue with current medications and tx plan. 09/17/21: The patient was admitted to the [facility] ([facility] mental health unit) on q15 min checks (behavioral with suicide precautions) for safety. The patient will participate in group, recreational, and milieu therapies and will be offered additional individual and family sessions as clinically appropriate. -NRT gum -Continue gabapentin 300mg BID for pain relief (and off-label for benefits in alcohol use disorder) -Continue cephalexin 500mg BID for wound infection prevention (3 more days to end on 09/21) -Continue thiamine, folic acid (outside window for acute withdrawal so no need for AWSS) -Hold acetaminophen given elevated LFTs -Start fluoxetine 20mg qd for depression -Start trazodone 50mg qhs -As LFTs stabilize and mood improves could consider additional of MAT such as naltrexone Inventory Assets Strengths: employed, supportive family Needs: medication, coping skills, resources to stop using alcohol, additional outpatient supports Risk Factors Assessment Male: No : No Do You Have Access To A Gun?: No Health Problems: No Mental Health Diagnoses: Yes Substance Use Disorders: Yes Previous Attempt: No Family History of Suicide: No Previous Psychiatric Hospitalization: No Hopelessness: Yes Smoker: Yes Protective Factors Assessment Employed: Yes Stable Relationships: Yes Supportive Family: Yes Interval History Identifying Information PAT ROMERO is a 21-year-old woman who currently lives in [place] with a roommate, has a history of depression and alcohol use, and was admitted on 09/17/21 11:45 on a 201 voluntary commitment for suicide attempt via polypharmacy overdose, alcohol ingestion and self-inflicted lacerations. Chief Complaint "I'm having less irritation with the new banadages for my legs". Review of Systems Sleep Information Total Hours of Sleep: 7.5 Sleep Comments: pt given trazodone per rn. pt on q-15 minute checks Meal Information Percent Meal Consumed - Breakfast: 100 Percent Meal Consumed - Lunch: 100 Percent Meal Consumed - Dinner: 100 Subjective Subjective Patient was seen & assessed and interval progress reviewed with treatment team nursing and social work. Interactive, out of her room, attending groups. Reports relief from worsening irritation around lacerations on her thigh with new wound bandage recommended by wound nurse. Continues to feel depressed but finding groups and milieu environment helpful. No medication side effects. Trazodone is helping her fall asleep quickly, still with some awakenings overnight. Physical Exam Psychiatric Orientation: alert and oriented x 3 Apperance: appropriately dressed and appropriately groomed Eye Contact: good eye contact Motor Behavior: no abnormal motor movements Speech: normal rate/rhythm/volume of speech Affect: + depressed affect Mood: + depressed mood Thought Process: goal directed thought process Thought Content: reality based without delusions Suicidal Thoughts: denies suicidal thoughts (feels safe in the hospital, attempt prior to admission), denies suicidal plan and denies suicidal intent Homicidal Thoughts: denies homicidal thoughts Hallucinations: no auditory hallucinations and no visual hallucinations Cognition: recent memory grossly intact, remote memory grossly intact, attention grossly intact and language grossly intact Estimated Intelligence: consistent with education level Insight: + fair insight Judgement: + limited judgement Vital Signs (Past 24 Hours) Last Vital Signs Temp 36.4 C L 09/19/21 06:42 Pulse 87 09/19/21 06:43 Resp 16 09/19/21 06:42 BP 110/64 09/19/21 06:43 Pulse Ox 99 09/17/21 12:39 Results & Data ([facility]) Current Inpatient Medications Current Inpatient Medications: Current Inpatient Medications Al Hydrox/Mg Hydrox/Simethicone (Aluminum/Magnesium Susp 30 Ml Udc) 30 ml PO Q4H PRN PRN Reason: GI Upset Stop: 10/17/21 10:43 Bismuth Subsalicylate (Bismuth Subsalicylate Liqd 236 Ml) 15 ml PO PRN PRN PRN Reason: Loose Stool Stop: 10/17/21 10:43 Cephalexin HCl (Cephalexin 500 Mg Cap) 500 mg PO BID [facility] Stop: 09/20/21 20:59 Last Admin: 09/18/21 21:54 Dose: 500 mg Documented by: Fluoxetine HCl (Fluoxetine Hcl 20 Mg Cap) 20 mg PO QAM [facility] Stop: 10/18/21 08:59 Last Admin: 09/18/21 08:51 Dose: 20 mg Documented by: Folic Acid (Folic Acid 1 Mg Tab) 1 mg PO QAM [facility] Stop: 10/18/21 08:59 Last Admin: 09/18/21 08:52 Dose: 1 mg Documented by: Gabapentin (Gabapentin 300 Mg Cap) 300 mg PO BID [facility] Stop: 10/17/21 20:59 Last Admin: 09/18/21 21:55 Dose: 300 mg Documented by: Hydroxyzine HCl (Hydroxyzine Hcl 25 Mg Tab) 50 mg PO HSZ PRN PRN Reason: Insomnia Stop: 10/17/21 10:43 Hydroxyzine HCl (Hydroxyzine Hcl 25 Mg Tab) 25 mg PO Q4H PRN PRN Reason: Anxiety Stop: 10/17/21 10:43 Magnesium Hydroxide (Magnesium Hydroxide Susp 30 Ml Udc) 30 ml PO DAILY PRN PRN Reason: Constipation Stop: 10/17/21 10:43 Nicotine Polacrilex (Nicotine Polacrilex 2 Mg Gum) 1 piece MT PRN PRN PRN Reason: nicotine withdrawal Stop: 10/17/21 13:20 Last Admin: 09/18/21 15:12 Dose: 1 piece Documented by: Sodium Chloride (Sodium Chloride 0.65% Na Soln 45 Ml ([place])) 1 - 2 sprays NA PRN PRN PRN Reason: Nasal Dryness/Congestion Stop: 10/17/21 10:43 Thiamine HCl (Thiamine Hcl 100 Mg Tab) 100 mg PO QAM [facility] Stop: 10/18/21 08:59 Last Admin: 09/18/21 08:51 Dose: 100 mg Documented by: Trazodone HCl (Trazodone Hcl 50 Mg Tab) 50 mg PO HS [facility] Stop: 10/17/21 21:59 Last Admin: 09/18/21 21:54 Dose: 50 mg Documented by: Mental Health & Subst Abuse Tx Therapist Name of Therapist: none Post Discharge Appointments Primary Care Physician Name Of Family Doctor: none
[2021-09-19] MEDS: cephALEXin 500 MG CAP PO SCH ×2 (08:48→22:29)
[2021-09-19] MEDS: FOLIC ACID 1 MG TAB PO SCH (08:49)
[2021-09-19] MEDS: FLUoxetine HCL 20 MG CAP PO SCH (08:49)
[2021-09-19] MEDS: GABAPENTIN 300 MG CAP PO SCH ×2 (08:49→22:30)
[2021-09-19] MEDS: THIAMINE HCL 100 MG TAB PO SCH (08:52)
[2021-09-19] MEDS ORDERED: IBUPROFEN 200 MG TAB PO PRN (10:17)
[2021-09-19] MEDS: NICOTINE POLACRILEX 2 MG GUM MT PRN ×2 (12:14→18:13)
[2021-09-19] MEDS: traZODone HCL 50 MG TAB PO SCH (22:30)
[2021-09-20] MEDS: THIAMINE HCL 100 MG TAB PO SCH (08:22)
[2021-09-20] MEDS: FLUoxetine HCL 20 MG CAP PO SCH (08:22)
[2021-09-20] MEDS: cephALEXin 500 MG CAP PO SCH (08:22)
[2021-09-20] MEDS: FOLIC ACID 1 MG TAB PO SCH (08:22)
[2021-09-20] MEDS: GABAPENTIN 300 MG CAP PO SCH ×2 (08:22→21:22)
--- NOTE | 2021-09-20 09:00 | Psychiatric Progress Note ---
Date of Service September 20, 2021 Impression / Recommendations Impression The patient is a 21 year old with a history of depression, self-harm and alcohol use who was admitted for suicide attempt via Benadryl, alcohol and with multiple self-inflicted cuts requiring sutures. Diagnostically consistent with MDD with anxious distress, alcohol use disorder, moderate, as well as likely substance- induced component to her depression. The patient is deemed unstable and requires psychiatric hospitalization for diagnostic clarification, safety and stabilization, medication management and development of further coping skills. MNPR due to extensive lacerations which are in early stages of healing and requiring exposure to air so that she can have them uncovered in her room to aid with healing and reduce risk of friction and infection given new blisters. 09/20/21: Remains depressed but improving slowly. Tolerating medications well and sleep is improving. Ongoing pain from lacerations though improving with interveitons of ice and soft dressings over top. Ongoing motivational intervie wing regarding her alcohol use-action of doing IOP and avoiding use initially. Reviewed naltrexone, she does not feel it is needed at this time. (1) MDD (major depressive disorder), recurrent episode, moderate: (2) Alcohol use disorder, moderate, dependence: (3) Suicide attempt: (4) TSH elevation: Will need PCP f/up in 4-6 weeks for repeat TSH and free T4 (5) Laceration of multiple sites: open to air, ster-strips, can shower with them; sutures will need to be removed in 2 weeks (6) Transaminitis: PCP follow-up in 1-2 weeks for repeat LFTs and CBC 09/20/21: Continue current medications. Ongoing motivational interviewing regarding alcohol use. 09/19/21: Continue with current medications and tx plan. 09/18/21: Wound care consult for increased irritation along steri-strips. Continue with current medications and tx plan. 09/17/21: The patient was admitted to the [facility] ([facility] mental health unit) on q15 min checks (behavioral with suicide precautions) for safety. The patient will participate in group, recreational, and milieu therapies and will be offered additional individual and family sessions as clinically appropriate. -NRT gum -Continue gabapentin 300mg BID for pain relief (and off-label for benefits in alcohol use disorder) -Continue cephalexin 500mg BID for wound infection prevention (3 more days to end on 09/21) -Continue thiamine, folic acid (outside window for acute withdrawal so no need for AWSS) -Hold acetaminophen given elevated LFTs -Start fluoxetine 20mg qd for depression -Start trazodone 50mg qhs -As LFTs stabilize and mood improves could consider additional of MAT such as naltrexone Inventory Assets Strengths: employed, supportive family Needs: medication, coping skills, resources to stop using alcohol, additional outpatient supports Risk Factors Assessment Male: No : No Do You Have Access To A Gun?: No Health Problems: No Mental Health Diagnoses: Yes Substance Use Disorders: Yes Previous Attempt: No Family History of Suicide: No Previous Psychiatric Hospitalization: No Hopelessness: Yes Smoker: Yes Protective Factors Assessment Employed: Yes Stable Relationships: Yes Supportive Family: Yes Interval History Identifying Information PAT ROMERO is a 21-year-old woman who currently lives in [place] with a roommate, has a history of depression and alcohol use, and was admitted on 09/17/21 11:45 on a 201 voluntary commitment for suicide attempt via polypharmacy overdose, alcohol ingestion and self-inflicted lacerations. Chief Complaint "Ok". Review of Systems Sleep Information Total Hours of Sleep: 7 Sleep Comments: pt given trazodone per rn. pt on q-15 minute checks Meal Information Percent Meal Consumed - Breakfast: 100 Percent Meal Consumed - Lunch: 100 Percent Meal Consumed - Dinner: 100 Subjective Subjective Patient was seen & assessed and interval progress reviewed with treatment team nursing and social work. Had her family meeting yesterday. Feels "content" and slept better last night. Finding groups helpful. Less irritation from lacerations/sutures with new pads and using ice as needed in her room where she can privately disrobe. She denies any cravings for alcohol and agrees to avoid alcohol for at least a few months after discharge. She remains hopeful that one day she can have a different relationship with alcohol and be able to drink socially. Physical Exam Psychiatric Orientation: alert and oriented x 3 Apperance: appropriately dressed and appropriately groomed Eye Contact: good eye contact Motor Behavior: no abnormal motor movements Speech: normal rate/rhythm/volume of speech Affect: + depressed affect Mood: + depressed mood Thought Process: goal directed thought process Thought Content: reality based without delusions Suicidal Thoughts: denies suicidal thoughts (feels safe in the hospital, attempt prior to admission), denies suicidal plan and denies suicidal intent Homicidal Thoughts: denies homicidal thoughts Hallucinations: no auditory hallucinations and no visual hallucinations Cognition: recent memory grossly intact, remote memory grossly intact, attention grossly intact and language grossly intact Estimated Intelligence: consistent with education level Insight: + fair insight Judgement: + limited judgement Vital Signs (Past 24 Hours) Last Vital Signs Temp 36.6 C 09/20/21 06:00 Pulse 86 09/20/21 06:01 Resp 16 09/20/21 06:00 BP 118/84 09/20/21 06:01 Pulse Ox 99 09/17/21 12:39 Results & Data ([facility] [place]) Current Inpatient Medications Current Inpatient Medications: Current Inpatient Medications Al Hydrox/Mg Hydrox/Simethicone (Aluminum/Magnesium Susp 30 Ml Udc) 30 ml PO Q4H PRN PRN Reason: GI Upset Stop: 10/17/21 10:43 Bismuth Subsalicylate (Bismuth Subsalicylate Liqd 236 Ml) 15 ml PO PRN PRN PRN Reason: Loose Stool Stop: 10/17/21 10:43 Cephalexin HCl (Cephalexin 500 Mg Cap) 500 mg PO BID [facility] Stop: 09/20/21 20:59 Last Admin: 09/20/21 08:22 Dose: 500 mg Documented by: Fluoxetine HCl (Fluoxetine Hcl 20 Mg Cap) 20 mg PO QAM [facility] Stop: 10/18/21 08:59 Last Admin: 09/20/21 08:22 Dose: 20 mg Documented by: Folic Acid (Folic Acid 1 Mg Tab) 1 mg PO QAM [facility] Stop: 10/18/21 08:59 Last Admin: 09/20/21 08:22 Dose: 1 mg Documented by: Gabapentin (Gabapentin 300 Mg Cap) 300 mg PO BID [facility] Stop: 10/17/21 20:59 Last Admin: 09/20/21 08:22 Dose: 300 mg Documented by: Hydroxyzine HCl (Hydroxyzine Hcl 25 Mg Tab) 50 mg PO HSZ PRN PRN Reason: Insomnia Stop: 10/17/21 10:43 Hydroxyzine HCl (Hydroxyzine Hcl 25 Mg Tab) 25 mg PO Q4H PRN PRN Reason: Anxiety Stop: 10/17/21 10:43 Ibuprofen (Ibuprofen 200 Mg Tab) 200 mg PO Q4H PRN PRN Reason: pain Stop: 10/19/21 10:29 Last Admin: 09/19/21 10:33 Dose: 200 mg Documented by: Magnesium Hydroxide (Magnesium Hydroxide Susp 30 Ml Udc) 30 ml PO DAILY PRN PRN Reason: Constipation Stop: 10/17/21 10:43 Nicotine Polacrilex (Nicotine Polacrilex 2 Mg Gum) 1 piece MT PRN PRN PRN Reason: nicotine withdrawal Stop: 10/17/21 13:20 Last Admin: 09/19/21 18:13 Dose: 1 piece Documented by: Sodium Chloride (Sodium Chloride 0.65% Na Soln 45 Ml ([place])) 1 - 2 sprays NA PRN PRN PRN Reason: Nasal Dryness/Congestion Stop: 10/17/21 10:43 Thiamine HCl (Thiamine Hcl 100 Mg Tab) 100 mg PO QAM [facility] Stop: 10/18/21 08:59 Last Admin: 09/20/21 08:22 Dose: 100 mg Documented by: Trazodone HCl (Trazodone Hcl 50 Mg Tab) 50 mg PO HS [facility] Stop: 10/17/21 21:59 Last Admin: 09/19/21 22:30 Dose: 50 mg Documented by: Mental Health & Subst Abuse Tx Psychiatrist Name of Psychiatrist: Purvi García Psychiatrist's Psychiatric Appointment Comment: [address], [address], [place], [place] Therapist Name of Therapist: Purvi Mckeon Therapist's Date of Therapist Appointment: 09/25/21 Time of Therapist Appointment: 11:30am Therapy Appointment Comment: [address], [address], [place], [place] Post Discharge Appointments Primary Care Physician Name Of Family Doctor: Lynda [facility] Date of Appointment with PCP: 09/22/21 Time of Appointment with PCP: 1:40p (check in at 1:25p) Provider Appointment Comment: [place] [id number] Contact Information Discharge Discharge Address: [address] [place] [address], [place] [address]
[2021-09-20] MEDS: NICOTINE POLACRILEX 2 MG GUM MT PRN ×2 (14:30→19:35)
[2021-09-20] MEDS: traZODone HCL 50 MG TAB PO SCH (21:22)
[2021-09-21] MEDS: FLUoxetine HCL 20 MG CAP PO SCH (08:41)
[2021-09-21] MEDS: GABAPENTIN 300 MG CAP PO SCH ×2 (08:42→22:08)
[2021-09-21] MEDS: THIAMINE HCL 100 MG TAB PO SCH (08:42)
[2021-09-21] MEDS: FOLIC ACID 1 MG TAB PO SCH (08:42)
--- NOTE | 2021-09-21 09:15 | Psychiatric Progress Note ---
Date of Service September 21, 2021 Impression / Recommendations Impression The patient is a 21 year old with a history of depression, self-harm and alcohol use who was admitted for suicide attempt via Benadryl, alcohol and with multiple self-inflicted cuts requiring sutures. Diagnostically consistent with MDD with anxious distress, alcohol use disorder, moderate, as well as likely substance- induced component to her depression. The patient is deemed unstable and requires psychiatric hospitalization for diagnostic clarification, safety and stabilization, medication management and development of further coping skills. MNPR due to extensive lacerations which are in early stages of healing and requiring exposure to air so that she can have them uncovered in her room to aid with healing and reduce risk of friction and infection given new blisters. 09/21/21: Ongoing mood improvement, some anxiety today. Tolerating medications well without side effects and sleep remains stable and improved. Ongoing pain from lacerations though improving with interventions of ice and soft dressings over top. Ongoing motivational interviewing regarding her alcohol use-action stage of doing dual diagnosis IOP and avoiding use. (1) MDD (major depressive disorder), recurrent episode, moderate: (2) Alcohol use disorder, moderate, dependence: (3) Suicide attempt: (4) TSH elevation: Will need PCP f/up in 4-6 weeks for repeat TSH and free T4 (5) Laceration of multiple sites: open to air, ster-strips, can shower with them; sutures will need to be removed in 2 weeks (6) Transaminitis: PCP follow-up in 1-2 weeks for repeat LFTs and CBC 09/21/21: Continue fluoxetine 20mg qd and trazodone 50mg qhs. Ongoing motivational interviewing regarding alcohol use. Completed her safety plan. 09/20/21: Continue current medications. Ongoing motivational interviewing regarding alcohol use. 09/19/21: Continue with current medications and tx plan. 09/18/21: Wound care consult for increased irritation along steri-strips. Continue with current medications and tx plan. 09/17/21: The patient was admitted to the [facility] ([facility] health unit) on q15 min checks (behavioral with suicide precautions) for safety. The patient will participate in group, recreational, and milieu therapies and will be offered additional individual and family sessions as clinically appropriate. -NRT gum -Continue gabapentin 300mg BID for pain relief (and off-label for benefits in alcohol use disorder) -Continue cephalexin 500mg BID for wound infection prevention (3 more days to end on 09/21) -Continue thiamine, folic acid (outside window for acute withdrawal so no need for AWSS) -Hold acetaminophen given elevated LFTs -Start fluoxetine 20mg qd for depression -Start trazodone 50mg qhs -As LFTs stabilize and mood improves could consider additional of MAT such as naltrexone Inventory Assets Strengths: employed, supportive family Needs: medication, coping skills, resources to stop using alcohol, additional outpatient supports Risk Factors Assessment Male: No : No Do You Have Access To A Gun?: No Health Problems: No Mental Health Diagnoses: Yes Substance Use Disorders: Yes Previous Attempt: No Family History of Suicide: No Previous Psychiatric Hospitalization: No Hopelessness: Yes Smoker: Yes Protective Factors Assessment Employed: Yes Stable Relationships: Yes Supportive Family: Yes Interval History Identifying Information PAT ROMERO is a 21-year-old woman who currently lives in [place] with a roommate, has a history of depression and alcohol use, and was admitted on 09/17/21 11:45 on a 201 voluntary commitment for suicide attempt via polypharmacy overdose, alcohol ingestion and self-inflicted lacerations. Chief Complaint "I'm ok". Review of Systems Sleep Information Total Hours of Sleep: 7 Sleep Comments: pt given trazodone per rn. pt on q-15 minute checks Meal Information Percent Meal Consumed - Breakfast: 100 Percent Meal Consumed - Lunch: 100 Percent Meal Consumed - Dinner: 100 Subjective Subjective Patient was seen & assessed and interval progress reviewed with treatment team nursing and social work. Mood is stable, denies SI. Sleeping well. Feels the medications are working well and are helpful. Plans to avoid alcohol use in outpatient setting and continues to deny any cravings. Physical Exam Psychiatric Orientation: alert and oriented x 3 Apperance: appropriately dressed and appropriately groomed Eye Contact: good eye contact Motor Behavior: no abnormal motor movements Speech: normal rate/rhythm/volume of speech Affect: euthymic affect Mood: + anxious mood Thought Process: goal directed thought process Thought Content: reality based without delusions Suicidal Thoughts: denies suicidal thoughts Homicidal Thoughts: denies homicidal thoughts Hallucinations: no auditory hallucinations and no visual hallucinations Cognition: recent memory grossly intact, remote memory grossly intact, attention grossly intact and language grossly intact Estimated Intelligence: consistent with education level Insight: + fair insight Judgement: + limited judgement Vital Signs (Past 24 Hours) Last Vital Signs Temp 36.7 C 09/21/21 06:23 Pulse 73 09/21/21 06:23 Resp 18 09/21/21 06:23 BP 114/75 09/21/21 06:23 Pulse Ox 99 09/17/21 12:39 Results & Data ([facility]) Current Inpatient Medications Current Inpatient Medications: Current Inpatient Medications Al Hydrox/Mg Hydrox/Simethicone (Aluminum/Magnesium Susp 30 Ml Udc) 30 ml PO Q4H PRN PRN Reason: GI Upset Stop: 10/17/21 10:43 Bismuth Subsalicylate (Bismuth Subsalicylate Liqd 236 Ml) 15 ml PO PRN PRN PRN Reason: Loose Stool Stop: 10/17/21 10:43 Fluoxetine HCl (Fluoxetine Hcl 20 Mg Cap) 20 mg PO QAM SUSANNE Stop: 10/18/21 08:59 Last Admin: 09/21/21 08:41 Dose: 20 mg Documented by: Folic Acid (Folic Acid 1 Mg Tab) 1 mg PO QAM SUSANNE Stop: 10/18/21 08:59 Last Admin: 09/21/21 08:42 Dose: 1 mg Documented by: Gabapentin (Gabapentin 300 Mg Cap) 300 mg PO BID SUSANNE Stop: 10/17/21 20:59 Last Admin: 09/21/21 08:42 Dose: 300 mg Documented by: Hydroxyzine HCl (Hydroxyzine Hcl 25 Mg Tab) 50 mg PO HSZ PRN PRN Reason: Insomnia Stop: 10/17/21 10:43 Hydroxyzine HCl (Hydroxyzine Hcl 25 Mg Tab) 25 mg PO Q4H PRN PRN Reason: Anxiety Stop: 10/17/21 10:43 Ibuprofen (Ibuprofen 200 Mg Tab) 200 mg PO Q4H PRN PRN Reason: pain Stop: 10/19/21 10:29 Last Admin: 09/19/21 10:33 Dose: 200 mg Documented by: Magnesium Hydroxide (Magnesium Hydroxide Susp 30 Ml Udc) 30 ml PO DAILY PRN PRN Reason: Constipation Stop: 10/17/21 10:43 Nicotine Polacrilex (Nicotine Polacrilex 2 Mg Gum) 1 piece MT PRN PRN PRN Reason: nicotine withdrawal Stop: 10/17/21 13:20 Last Admin: 09/20/21 19:35 Dose: 1 piece Documented by: Sodium Chloride (Sodium Chloride 0.65% Na Soln 45 Ml ([place])) 1 - 2 sprays NA PRN PRN PRN Reason: Nasal Dryness/Congestion Stop: 10/17/21 10:43 Thiamine HCl (Thiamine Hcl 100 Mg Tab) 100 mg PO QAM SUSANNE Stop: 10/18/21 08:59 Last Admin: 09/21/21 08:42 Dose: 100 mg Documented by: Trazodone HCl (Trazodone Hcl 50 Mg Tab) 50 mg PO HS SUSANNE Stop: 10/17/21 21:59 Last Admin: 09/20/21 21:22 Dose: 50 mg Documented by: Mental Health & Subst Abuse Tx Psychiatrist Name of Psychiatrist: Purvi García Psychiatrist's Psychiatric Appointment Comment: [address], [address], [place], [place] Therapist Name of Therapist: Purvi García- [place] Therapist's Date of Therapist Appointment: 09/25/21 Time of Therapist Appointment: 11:30am Therapy Appointment Comment: [address], [address], [place], [place] Post Discharge Appointments Primary Care Physician Name Of Family Doctor: Lynda Ewing Primary [facility] Date of Appointment with PCP: 09/22/21 Time of Appointment with PCP: 1:40p (check in at 1:25p) Provider Appointment Comment: [place] [address] Contact Information Discharge Discharge Address: [address] [place] [address], [place] [address], [place] [address]
[2021-09-21] MEDS: NICOTINE POLACRILEX 2 MG GUM MT PRN ×2 (13:17→18:01)
[2021-09-21] MEDS: traZODone HCL 50 MG TAB PO SCH (22:08)
[2021-09-22] MEDS: GABAPENTIN 300 MG CAP PO SCH (08:15)
[2021-09-22] MEDS: THIAMINE HCL 100 MG TAB PO SCH (08:16)
[2021-09-22] MEDS: FLUoxetine HCL 20 MG CAP PO SCH (08:16)
[2021-09-22] MEDS: FOLIC ACID 1 MG TAB PO SCH (08:16)
[2021-09-22] MEDS: NICOTINE POLACRILEX 2 MG GUM MT PRN (09:34)
--- NOTE | 2021-09-22 10:31 | Discharge Summary ---
Date of Service September 22, 2021 History of Present Illness As per Dr. Purcell on admission: Wanda, who prefers to go by Adrian, presents for admission from the medical unit after receiving care for her suicide attempt via overdose and close monitoring for alcohol withdrawal. She presented to the ED on 09/13/21 via EMS after she sent a vague but concerning text message to a friend who reached to police who did a welfare check. Upon entering Adrian's apartment they found her in the bathtub with multiple superficial and deep lacerations (on her abdomen, forearms and thighs with some requiring sutures) and minimally responsive having ingested Bendaryl (~10-15 tabs of 25mg pills) as well as possible ingestion of pseudoephedrine and Ibuprofen (but no tablets were missing) and alcohol (tequila) as a suicide attempt. While on the medical floor Adrian confirmed that the ingestion and cuts were part of a suicide attempt. She recalls trying to figure out how to pay her rent and her debt earlier that day because she was supposed to be moving in with her boyfriend so she had gotten out of her lease. This lead her to feel overwhelmed and that "it would be easier if I just didn't have to anything or live anymore and someone take care of my dog". She recalls thinking about this plan for about 1 month but felt so overwhelmed that day she acted on it. She feels like "I just don't have anything anymore". She had a lot of money saved up but due to the DUI she's had to keep paying fines and this has lead to financial instability. She can no longer live with her roommate as she had been planning to move in with her boyfriend for almost a yea so they had found a new roommate. She endorses a long history of depression, starting in middle school, which comes in waves and re-occurred over the past year since winter 2020. It has worsened recently and prompted her suicide attempt in the context of multiple psychosocial stressors including DUI in May 2021, financial debt, and her boyfriend moving away a few months ago and with breakup one week ago. She identifies depression symptoms including: hopelessness, worthlessness, guilt, helplessness, overwhelmed, low energy, social isolation, decreased sleep with awakenings (~4 hours per night). Appetite is stable. More recently an increase in anxiety with a few panic attacks in the last month. She denies any current active SI, still some periods of passive SI, but remains ambivalent about surviving. Notes that she was depressed even prior to drinking alcohol but now uses alcohol to cope with depression and she likes that it helps her sleep. She used to drink recreationally and then her use increased to drinking at night at home every night to relax and help with sleep. If she tries to go without it she doesn't sleep. She doesn't like that alcohol sometimes makes her feel hungover. Prior to her suicide attempt she and her family had been discussing option of seeking residential alcohol use treatment given her drinking pattern of daily use of tequila 5 shots up to 1/5th per day. Psychiatric ROS notable for pertinent positives of self-harm via cutting (starting at age 16, none for a few years, resumed with a few times per year but not regularly since age 16), struggles with concentration/jumps from thing to think, has difficulty sitting still. Pertinent negatives: denial of hx of anxiety prior to the last month, no history of naomie, no history of psychosis, no hx eating disorder. Physical Exam Psychiatric See admission H&P and DOD assessment. Vital Signs (Past 24 Hours) Last Vital Signs Temp 36.9 C 09/22/21 06:00 Pulse 63 09/22/21 06:21 Resp 16 09/22/21 06:00 BP 105/68 09/22/21 06:21 Pulse Ox 99 09/17/21 12:39 Principal Diagnosis major depressive disorder Psychiatric Data See daily stay summary. In short, safety was maintained and the patient was cooperative with care. Medication changes included trial of Prozac and trazodone prn sleep and they tolerated this well. A family session was held with mother and safety plan was completed prior to discharge. She will be transitioning back to apartment after a few days at home for closer monitoring with mother. She feels hopeful and was an active participant in groups. She denies urges to drink and is future focussed with regards to return to work. Day of Discharge Assessment Today the patient voices readiness for discharge. They note improvement in mood and deny thoughts to harm self or others. Thoughts remain organized and they are improved from admission. There is no evidence of psychosis. They agree to take mediations as prescribed and keep follow-up appointments. They are stable for discharge to outpatient level of care and will see PCP this pm for assessment of timing of suture removal. Transition of Care Transition Of Care Record: was reviewed with the patient Advance Directives Advance Directives Information Provided: Yes Advance Directives: No Mental Health Advance Directive: No Advance Directives on File: No Living Will: No Power of Service Or Work Dispatcher Chief: No Advance Directives Reason:: Declines as Mental Health Visit. Risk Factors Assessment Male: No : No Do You Have Access To A Gun?: No Health Problems: No Mental Health Diagnoses: Yes Substance Use Disorders: Yes Previous Attempt: No Family History of Suicide: No Previous Psychiatric Hospitalization: No Hopelessness: Yes Smoker: Yes Protective Factors Assessment Employed: Yes Stable Relationships: Yes Supportive Family: Yes Total Time Total Time Spent: Greater Than 30 Minutes Total Time Includes: Examination of the patient, Discharge Planning and Medication Reconciliation Discharge Data Lab Results see medical hospitalization Hospital Course (1) MDD (major depressive disorder), recurrent episode, moderate: (2) Alcohol use disorder, moderate, dependence: (3) Suicide attempt: (4) TSH elevation: Will need PCP f/up in 4-6 weeks for repeat TSH and free T4 (5) Laceration of multiple sites: open to air, ster-strips, can shower with them; sutures will need to be removed in 2 weeks (6) Transaminitis: PCP follow-up in 1-2 weeks for repeat LFTs and CBC 09/21/21: Continue fluoxetine 20mg qd and trazodone 50mg qhs. Ongoing motivational interviewing regarding alcohol use. Completed her safety plan. 09/20/21: Continue current medications. Ongoing motivational interviewing regarding alcohol use. 09/19/21: Continue with current medications and tx plan. 09/18/21: Wound care consult for increased irritation along steri-strips. Continue with current medications and tx plan. 09/17/21: The patient was admitted to the [facility] ([facility] unit) on q15 min checks (behavioral with suicide precautions) for safety. The patient will participate in group, recreational, and milieu therapies and will be offered additional individual and family sessions as clinically appropriate. -NRT gum -Continue gabapentin 300mg BID for pain relief (and off-label for benefits in alcohol use disorder) -Continue cephalexin 500mg BID for wound infection prevention (3 more days to end on 09/21) -Continue thiamine, folic acid (outside window for acute withdrawal so no need for AWSS) -Hold acetaminophen given elevated LFTs -Start fluoxetine 20mg qd for depression -Start trazodone 50mg qhs -As LFTs stabilize and mood improves could consider additional of MAT such as naltrexone Mental Health & Subst Abuse Tx Psychiatrist Name of Psychiatrist: Purvi García Psychiatrist's Psychiatric Appointment Comment: [address], [address], [place], [place] Therapist Name of Therapist: Purvi Mckeon Therapist's Date of Therapist Appointment: 09/25/21 Time of Therapist Appointment: 11:30am Therapy Appointment Comment: [address], [address], [place], [place] Post Discharge Appointments Primary Care Physician Name Of Family Doctor: Lynda Ewing Primary Care Date of Appointment with PCP: 09/22/21 Time of Appointment with PCP: 1:40p (check in at 1:25p) Provider Appointment Comment: [address], [place] [address] Contact Information Discharge Discharge Address: [address] [place] [id number] Discharge Plan Discharge Items Patient Disposition: Home - Self-Care Reason For Visit: MAJOR DEPRESSIVE DISORDER Discharge Diagnosis: major depressive disorder Activity: Resume your previous activity Non-emergency contact: Primary Care Provider, Psychiatrist and Therapist Call non-emergency contact if: you have any medication questions and your symptoms worsen Follow-up/Referrals: Purvi García [Outside] (Appointment 09/25/21 @ 1130 with Linda ) PCP,NO [Primary Care Provider] - Diet: Regular Addtl Attending Provider Instructions: SPECIAL CARE INSTRUCTIONS: 1. Follow through with your scheduled aftercare appointments. If unable to keep an appointment, please call to reschedule. 2. Take your medication only as prescribed. Medication should not be changed or stopped without the approval of your doctor. In the event of worsening symptoms or concerns about side effects, contact your doctor immediately. 3. Utilize new healthy coping skills, anger management skills, and stress management skills learned during your hospitalization. Journal feelings and process them with a support person. Identify stressors or situations that may result in relapse, deterioration or inappropriate behaviors and develop a plan to deal with those issues. 4. If your coping skills are ineffective and you are in crisis, contact your outpatient providers for direction. If unable to reach your providers, please call the [facility] CRISIS LINE AT , go to the [facility] walk-in center at [address], [address], [place], or go to the closest Emergency Room. 5. Avoid alcohol and un-prescribed drugs. 6. You have been provided with the Mental Health Advance Directives Pamphlet for your review. 7. Your condition is stable for discharge to outpatient level of care, but recovery is an ongoing process. Ifthoughts to harm yourself or others return, follow the safety plan developed during your stay. Planning for a safe return home includes securing weapons. Our treatment team recommends weaponsbe removed from the home until your outpatient provider reassesses your progress. In rare cases where the items themselvescannot be removed, guns and ammunitionshould be secured separatelyand keys stored by a reliable personoutside of the home. If you were admitted on an involuntary commitment, the police or other legal authorities may be involved in this process. AFTERCARE APPOINTMENTS: * Please call your insurance company prior to your scheduled appointment to confirm your aftercare providers are covered. Take your insurance information to your appointments. WHO TO CALL AND WHEN: Medical Emergencies: For questions or emergencies related to your hospital stay, please contact the Inpatient Behavioral Health Unit at [phone]. A grain elevator agent is on-call 24/12 for the Behavioral Health Unit for emergencies At any time you feel your situation is an emergency, you may also call 911 immediately. Pending Studies at Discharge: No Stand-Alone Forms: My [facility] VIPAAR, Smoking Cessation Medications and DC Order Prescriptions: New trazodone 50 mg Tablet 50 mg PO HS 30 Days Qty: 30 RF: 0 gabapentin 300 mg Capsule 300 mg PO BID 30 Days Qty: 60 RF: 0 fluoxetine 20 mg Capsule 20 mg PO QAM 30 Days Qty: 30 RF: 0 Continued polyethylene glycol 3350 [Miralax] 17 gram Powder In Packet 17 g PO DAILY PRN (Reason: constipation) Qty: 30 RF: 0 Discontinued acetaminophen 325 mg Tablet 650 mg PO Q6 PRN (Reason: fever or pain) Qty: 20 RF: 0 thiamine HCl (vitamin B1) 100 mg Tablet 100 mg PO QAM Qty: 30 RF: 0 cephalexin 500 mg Capsule 500 mg PO BID Qty: 6 RF: 0 folic acid 1 mg Tablet 1 mg PO QAM Qty: 30 RF: 0 Discharge Orders: Discharge Order (Routine); Ordered 09/22/21 Ordered By: Ruby Joseph Admission Data Admit Date/Time: 09/17/21 11:45 Attending Provider: Ruby Joseph Admit Provider: Corie Purcell Primary Care Provider: PCP,NO Other Interventions: Discharge Summary Assessment (RN) Last Done: 09/22/21 11:15 PSY Interdisciplinary Discharge Planning Last Done: 09/22/21 11:20 Coding Level of Care Code 06170 D/C day mgmt > 30 min Diagnoses MDD (major depressive disorder), recurrent episode, moderate F33.1 Alcohol use disorder, moderate, dependence F10.20 Suicide attempt T14.91XA TSH elevation R79.89 Laceration of multiple sites T07.XXXA Transaminitis R74.01
== END 2021-09-22 11:57 | disposition home or self-care (01) | DRG 885 ==
LOC: SUATTDRO 11:45 → 3S 11:45

== ENCOUNTER 2022-01-01 14:32 | Observation (INO) ==
[2022-01-01 16:36] LABS: Basophils # (auto) 0.06 K/uL (0-0.2); Basophils % (auto) 0.4 %; Eosinophils # (auto) 0.22 K/uL (0-0.50); Eosinophils % (auto) 1.4 %; Hematocrit (blood only) 40.1 % (34.1-44.9); Hemoglobin 13.7 g/dl (12.0-16.0); Immature Granulocytes # (auto) 0.07 K/uL (0.00-0.02); Immature Granulocytes % (auto) 0.5 %; Lymphocytes # (auto) 2.14 K/uL (1.2-3.4); Mean Corpuscular Hemoglobin 31.3 pg (25.0-34.0); Mean Corpuscular Hgb Conc 34.2 g/dL (32.0-36.0); Mean Corpuscular Volume 91.6 fL (80.0-100.0); Monocytes # (auto) 0.89 K/uL (0.24-0.82); Monocytes % (auto) 5.8 %; Neutrophils # (auto) 11.88 K/uL (1.4-6.5); Neutrophils % (auto) 77.9 %; Platelet Count 249 K/uL (130-400); RDW Coefficient of Variation 11.9 % (11.5-14.5); RDW Standard Deviation 39.8 fL (36.4-46.3); Red Blood Count 4.38 M/uL (3.93-5.22); White Blood Count 15.26 K/ul (4.8-10.8)
[2022-01-01 17:03] LABS: Albumin Globulin Ratio 1.3 (0.9-2); Albumin Level 4.4 gm/dl (3.4-5.0); BUN Creatinine Ratio 11.6 (10-20); Bilirubin,Total 0.6 mg/dl (0.2-1.0); Calcium 9.9 mg/dl (8.5-10.1); Creatinine Clr Calc Pharmacy 128.2 ml/min; Est GFR (African American) 111.9 ml/min; Est GFR (Non-African American) 96.6 ml/min; Globulin 3.4 gm/dl (2.5-4.0); Potassium 4.1 mmol/L (3.5-5.1); Total Protein 7.8 gm/dl (6.0-8.3)
--- NOTE | 2022-01-01 17:10 | Emergency Department Note ---
History of Present Illness General Chief complaint: Facial Injury/Pain Stated complaint: SWOLLEN NECK Time Seen by Provider: 01/01/22 16:59 History of Present Illness Maximum Pain Intensity: 5 This is a 21-year-old female that presents to the emergency department via private vehicle with complaints of "swollen neck". Patient notes that today she awoke with redness, swelling and pain underneath her chin. She denies any known trauma or injury. She has been applying ice to the area with some minimal relief. She denies any pain, swelling or issues intraorally. She denies any trouble breathing or swallowing. She denies any chest pain or shortness of breath. This has never happened before. Home Medications Medication Instructions Recorded Confirmed Type fluoxetine 20 mg capsule 20 mg PO QAM 01/01/22 01/01/22 History trazodone 100 mg tablet 100 mg PO HS 01/01/22 01/01/22 History Allergies Allergy/AdvReac Type Severity Reaction Status Date / Time cat dander Allergy Intermediate PUFFY Verified 01/01/22 18:25 EYES, SNEEZING, CONGESTION house dust Allergy Intermediate SNEEZING, Verified 01/01/22 18:25 CONGESTION weed pollen Allergy Intermediate SNEEZING, Verified 01/01/22 18:25 CONGESTION Past Med/Surg History Medical History ADHD Asthma Depression MDD (major depressive disorder), recurrent episode, moderate Migraine Surgical History No history of previous surgery Family History Uncle Asthma maternal Denies family history of Cervix cancer Ovarian cancer Breast cancer Colorectal cancer Uterine cancer Social History Smoking Status: Current every day smoker Tobacco Type: E-cigarettes / Vaping Cigarettes Per Day: Occasional vape pens; Hx Alcohol Use: Yes Alcohol type: hard liquor Alcohol type Comment: a fifth of tequila every 3 days Hx Substance Use: No Preferred Language: Finnish Communication Ability: Effective Smoking Pipes Cleaner Required: No Beliefs That Will Affect Care: None marital status: Single Current Living Situation: Other Current Living Situation Comment: Room mate current occupational status: employed and student Other Information That Helps Us Care for You: No Feels Safe at Home: Yes Safety Concerns: Feels Safe At This Time Assistive Devices: Glasses Review of Systems A total of 10 systems reviewed and were otherwise negative Physical Exam Vital Signs Vital Signs - 24 hr 01/01/22 14:43 01/01/22 17:23 Temperature 36.4 C L Temperature Source Temporal Artery Scan Pulse Rate 93 H Pulse Rate [Finger] 82 Pulse Rhythm Regular Pulse Strength Normal Respiratory Rate 20 16 Respiratory Effort / Characteristics Non-Labored Spontaneous Non-Labored Spontaneous Respiratory Depth Normal Normal Respiratory Pattern Regular Regular Blood Pressure 137/92 Blood Pressure [Right Arm] 144/92 H Blood Pressure Mean 107 Blood Pressure Mean [Right Arm] 109 Blood Pressure Position Sitting Blood Pressure Position [Right Arm] Sitting Pulse Oximetry 97 97 Oxygen Delivery Method Room Air Room Air Sepsis Recent Fever Within 48 Hours No Sepsis New/Unexplained Change in Mental Status No Sepsis Action Taken by Nursing No Action Required VITAL SIGNS - Vital signs and nursing notes were reviewed. Stable and afebrile. GENERAL -21-year-old female appearing her stated age who is in no acute distress. Communicates well with provider and answers questions appropriately. SKIN -just inferior to the patient's chin within the superior neck region midline there is erythema and edema with a focal region of induration and palpable firmness. No fluctuance or crepitus. No meningeal or petechial rash. HEAD - NC/AT. EYES - PERRL with EOMI bilaterally. Sclera anicteric. EARS - No deformities of external structures noted on gross examination bilaterally. No pain elicited with palpation of the tragus bilaterally. External auditory canals without discharge or otorrhea. Tympanic membranes pearly yee without retraction or bulging. No fluid or purulent material visualized behind the TM. Handle of malleus, umbo, cone of light, pars tensa/flaccid all easily vi sualized. NOSE - Midline and without cyanosis. No epistaxis or purulent drainage noted. Septum midline without deviation or septal hematoma noted. MOUTH/OROPHARYNX - Without perioral cyanosis. Buccal mucosa pink and moist and without leukoplakia. Tongue midline with equal elevation of palate bilaterally. No tonsillar hypertrophy, erythema, or exudates noted. Good dentition noted. No drooling, stridor, trismus, wheezing or tripoding. Normal phonation. NECK - Neck with FROM. Skin as above. Edema noted to the superior portion of the neck just inferior to the chin. Lymphadenopathy noted. No nuchal rigidity. LUNGS - Chest wall symmetric without accessory muscle use, intercostals retractions, or central cyanosis. Normal vesicular breath sounds CTA B/L. No wheezes, rales, or rhonchi appreciated. CARDIAC - RRR with S1/S2. No murmur, rubs, or gallops appreciated. EXTREMITIES - No clubbing or peripheral cyanosis. +5/5 strength noted in UE/LE bilaterally. NEUROLOGIC - Cranial nerves II through XII grossly intact. PSYCH - A&O, and cooperates fully with examiner. Pt is very pleasant and interacts well with examiner. Course Administered Medications Folic Acid (Folic Acid 1 Mg Tab) 1 mg PO QAM [facility] Stop: 01/31/22 20:51 Last Admin: 01/01/22 21:39 Dose: 1 mg Documented By: SAMM Dexamethasone 10 mg/ Syringe 2.5 mls @ 1 mls/min IV Q12 SUSANNE Stop: 01/31/22 19:59 Last Admin: 01/01/22 21:20 Dose: 1 mls/min Documented By: SAMM Sodium Chloride (Nss 1000ml) 1,000 mls @ 100 mls/hr IV .Q10H [facility] Stop: 01/02/22 05:29 Last Admin: 01/01/22 21:09 Dose: 100 mls/hr Documented By: SAMM Cefepime HCl 2,000 mg/ Syringe 20 mls @ 5 mls/min IV Q8H [facility]; Protocol Stop: 01/08/22 20:51 Last Admin: 01/01/22 21:20 Dose: 5 mls/min Documented By: SAMM Thiamine HCl (Thiamine Hcl 100 Mg Tab) 100 mg PO QAM [facility] Stop: 01/31/22 20:51 Last Admin: 01/01/22 21:38 Dose: 100 mg Documented By: SAMM Trazodone HCl (Trazodone Hcl 100 Mg Tab) 100 mg PO [facility] Stop: 01/31/22 20:59 Last Admin: 01/01/22 21:38 Dose: 100 mg Documented By: SAMM Discontinued Medications Acetaminophen (Acetaminophen 500 Mg Tab) 1,000 mg PO NOW ONE Stop: 01/01/22 21:31 Last Admin: 01/01/22 21:29 Dose: 1,000 mg Documented By: SAMM Gabapentin (Gabapentin 600 Mg Tab) 1,200 mg PO ONE ONE Stop: 01/01/22 19:43 Last Admin: 01/01/22 21:38 Dose: 1,200 mg Documented By: SAMM Clindamycin Phosphate (Cleocin/D5w) 600 mg in 50 mls @ 100 mls/hr IV NOW ONE Stop: 01/01/22 19:01 Last Infusion: 01/01/22 20:26 Dose: 0 mls/hr Documented By: Admin: 01/01/22 19:34 Dose: 100 mls/hr Documented By: SERA Ioversol (Optiray 320 100ml) 94 ml IV ONCE ONE Stop: 01/01/22 17:40 Last Admin: 01/01/22 17:41 Dose: 94 ml Documented By: [facility] Medical Decision Making Laboratory Data Result diagrams: 01/01/22 16:20 01/01/22 16:20 Lab Results 01/01/22 01/01/22 01/01/22 Range/Units 16:20 16:20 16:20 WBC 15.26 H (4.8-10.8) K/ul RBC 4.38 (3.93-5.22) M/uL Hgb 13.7 (12.0-16.0) g/dl Hct 40.1 (34.1-44.9) % MCV 91.6 (80.0-100.0) fL MCH 31.3 (25.0-34.0) pg MCHC 34.2 (32.0-36.0) g/dL RDW Std Deviation 39.8 (36.4-46.3) fL RDW Coeff of Lynn 11.9 (11.5-14.5) % Plt Count 249 (130-400) K/uL MPV 11.0 (9.4-12.3) fL Immature Gran % (Auto) 0.5 % Neut % (Auto) 77.9 % Lymph % (Auto) 14.0 % [place] % (Auto) 5.8 % Eos % (Auto) 1.4 % Baso % (Auto) 0.4 % Neut # (Auto) 11.88 H (1.4-6.5) K/uL Lymph # (Auto) 2.14 (1.2-3.4) K/uL [place] # (Auto) 0.89 H (0.24-0.82) K/uL Eos # (Auto) 0.22 (0-0.50) K/uL Baso # (Auto) 0.06 (0-0.2) K/uL Immature Gran # (Auto) 0.07 H (0.00-0.02) K/uL Sodium 135 L (136-145) mmol/L Potassium 4.1 (3.5-5.1) mmol/L Chloride 100 (98-107) mmol/L Carbon Dioxide 28 (21-32) mmol/L Anion Gap 7 (3-11) BUN 10 (6-23) mg/dl Creatinine 0.86 (0.6-1.2) mg/dl Est Cr Clr Drug Dosing 128.2 ml/min Est GFR ( Amer) 111.9 ml/min Est GFR (Non-Af Amer) 96.6 ml/min BUN/Creatinine Ratio 11.6 (10-20) Glucose 89 (70-99(Fasting)) mg/dl Calcium 9.9 (8.5-10.1) mg/dl Total Bilirubin 0.6 (0.2-1.0) mg/dl AST 44 H (13-39) U/L ALT 69 H (7-52) U/L Alkaline Phosphatase 61 (34-104) U/L Total Protein 7.8 (6.0-8.3) gm/dl Albumin 4.4 (3.4-5.0) gm/dl Globulin 3.4 (2.5-4.0) gm/dl Albumin/Globulin Ratio 1.3 (0.9-2) HCG, Qual Negative (Negative) SARS-CoV-2, RNA, NAAT (NEGATIVE) 01/01/22 Range/Units 17:25 WBC (4.8-10.8) K/ul RBC (3.93-5.22) M/uL Hgb (12.0-16.0) g/dl Hct (34.1-44.9) % MCV (80.0-100.0) fL MCH (25.0-34.0) pg MCHC (32.0-36.0) g/dL RDW Std Deviation (36.4-46.3) fL RDW Coeff of Lynn (11.5-14.5) % Plt Count (130-400) K/uL MPV (9.4-12.3) fL Immature Gran % (Auto) % Neut % (Auto) % Lymph % (Auto) % [place] % (Auto) % Eos % (Auto) % Baso % (Auto) % Neut # (Auto) (1.4-6.5) K/uL Lymph # (Auto) (1.2-3.4) K/uL [place] # (Auto) (0.24-0.82) K/uL Eos # (Auto) (0-0.50) K/uL Baso # (Auto) (0-0.2) K/uL Immature Gran # (Auto) (0.00-0.02) K/uL Sodium (136-145) mmol/L Potassium (3.5-5.1) mmol/L Chloride (98-107) mmol/L Carbon Dioxide (21-32) mmol/L Anion Gap (3-11) BUN (6-23) mg/dl Creatinine (0.6-1.2) mg/dl Est Cr Clr Drug Dosing ml/min Est GFR ( Amer) ml/min Est GFR (Non-Af Amer) ml/min BUN/Creatinine Ratio (10-20) Glucose (70-99(Fasting)) mg/dl Calcium (8.5-10.1) mg/dl Total Bilirubin (0.2-1.0) mg/dl AST (13-39) U/L ALT (7-52) U/L Alkaline Phosphatase (34-104) U/L Total Protein (6.0-8.3) gm/dl Albumin (3.4-5.0) gm/dl Globulin (2.5-4.0) gm/dl Albumin/Globulin Ratio (0.9-2) HCG, Qual (Negative) SARS-CoV-2, RNA, NAAT NEGATIVE (NEGATIVE) Imaging Data Radiologist's Impression: Soft Tissue Neck CT 01/01/22 17:05 CT soft tissue neck w con HISTORY: 21 years-old Female chin/neck edema, erythema, pain . Acute pain and swelling of the neck COMPARISON: None TECHNIQUE: Multiple axial CT images of the soft tissues of the neck were obt ained following the intravenous administration of 94 mL Optiray 320. A dose lowering technique was used consistent with the principals of WILMAN. FINDINGS: Unremarkable orbits. There is subcutaneous edema within the submental/submandibular tissues. There are prominent borderline enlarged level 1 lymph nodes measuring up to 9 mm in short axis. Mildly enlarged bilateral level 2 lymph nodes measure up to approximately 1.1 cm. The thyroid. The parotid and submandibular glands appear unremarkable. Mild symmetric prominence of the palatine and adenoid tonsils resulting in mild oropharyngeal narrowing. There is partial effacement of the vallecula and piriform sinuses. Unremarkable epiglottis, glottis and subglottic airway. No parapharyngeal abscess or phlegmon. The imaged intracranial structures are unremarkable. Lung apices are clear without pneumothorax. No acute fracture. Mastoid air cells are clear. Minimal mucosal thickening of the maxillary sinuses. Unerupted third mandibular molars are noted bilaterally. Periapical cyst formation with lateral cortical dehiscence noted involving the left maxillary second bicuspid on image 129. No significant adjacent inflammatory changes. IMPRESSION: 1. Subcutaneous edema within the submental/submandibular tissues without abscess is suggestive of cellulitis. Findings may represent developing cely angina. 2. Mild enlargement of the adenoid and palatine tonsils with mild oropharyngeal narrowing. No peritonsillar abscess. 3. Mildly enlarged level I and II lymph nodes are likely reactive. 4. Periapical cyst formation of the left maxillary second bicuspid. ACT 112: Negative or not required by law. The above report was generated using voice recognition software. It may contain grammatical, syntax or spelling errors. Electronically signed by: Alvaro Fong M.D. 01/01/2022 5:59 PM MDM Narrative Patient was seen and evaluated as above in room B 11. Review was performed of nursing notes and vital signs. I did review pertinent previous visits and patient history. After obtaining a thorough history and physical examination the above work up was performed. Patient presents to us today for evaluation of swelling, redness and pain under her chin. She clinically appears well and nontoxic. Vital signs are stable. Options of care were discussed with the patient. IV access was established. Labs were drawn. Patient was seen during a period of high volume and acuity, protocol orders were already placed in triage for laboratory studies. There is leukocytosis 15.26. No anemia. Mild hyponatremia 135. Transaminitis noted but this is similar to previous. hCG negative. COVID test negative. CT soft tissue neck was obtained. Results as above. Patient does have findings to suggest subcutaneous edema within the submental/submandibular tissues without abscess and this is suggestive of cellulitis. This may represent developing Ludwigs angina. I do believe the patient would benefit from inpatient management. I discussed the presentation with Dr. Jimenez of ENT. I did order clindamycin intravenously for the patient. She did have a penicillin allergy listed in the chart but notes that this is not accurate as that was on the list to because she notes that her mother had an allergy. At this time it is still felt that clindamycin is reasonable at the present time pending clinical course. Case discussed with the hospitalist. Please refer to further documentation regarding her stay. At this time there is no evidence of airway issue. No droo ling, stridor, trismus, wheezing or tripoding. Normal phonation. Case was discussed with the attending physician. GCS: 15 In the evaluation and treatment of this patient, the following differential diagnoses were considered: Periapical Abscess, Osteonecrosis of the Jaw, Dental Fracture, Dental Caries, Cely's Angina, Vincent's Angina, Facial Cellulitis, among others. Impression & Plan Cellulitis of submandibular region Discharge Plan Visit Data Chief Complaint: Facial Injury/Pain Stated Complaint: SWOLLEN NECK ED Provider: Jose Luis Reilly ED Midlevel Provider: Nahum Diane Discharge Problem: Cellulitis of submandibular region Patient Disposition: Admitted As Inpatient Condition: Good Discharge Instructions Interventions: ED Discharge Assessment Last Done: 01/01/22 20:34
[2022-01-01] MEDS ORDERED: OPTIRAY 320 100ml IV ONE (17:39)
[2022-01-01 17:43] LABS: Pregnancy Test, Serum Negative (Negative)
--- NOTE | 2022-01-01 18:01 | CT Scan Report ---
CT soft tissue neck w con HISTORY: 21 years-old Female chin/neck edema, erythema, pain . Acute pain and swelling of the neck COMPARISON: None TECHNIQUE: Multiple axial CT images of the soft tissues of the neck were obtained following the intra venous administration of 94 mL Optiray 320. A dose lowering technique was used consistent with the pr incipals of WILMAN. FINDINGS: Unremarkable orbits. There is subcutaneous edema within the submental/submandibular tissues. There ar e prominent borderline enlarged level 1 lymph nodes measuring up to 9 mm in short axis. Mildly enlarg ed bilateral level 2 lymph nodes measure up to approximately 1.1 cm. The thyroid. The parotid and submandibular glands appear unremarkable. Mild symmetric prominence of t he palatine and adenoid tonsils resulting in mild oropharyngeal narrowing. There is partial effacemen t of the vallecula and piriform sinuses. Unremarkable epiglottis, glottis and subglottic airway. No p arapharyngeal abscess or phlegmon. The imaged intracranial structures are unremarkable. Lung apices are clear without pneumothorax. No a cute fracture. Mastoid air cells are clear. Minimal mucosal thickening of the maxillary sinuses. Uner upted third mandibular molars are noted bilaterally. Periapical cyst formation with lateral cortical dehiscence noted involving the left maxillary second bicuspid on image 129. No significant adjacent i nflammatory changes. IMPRESSION: 1. Subcutaneous edema within the submental/submandibular tissues without abscess is suggestive of nestor lulitis. Findings may represent developing cely angina. 2. Mild enlargement of the adenoid and palatine tonsils with mild oropharyngeal narrowing. No periton sillar abscess. 3. Mildly enlarged level I and II lymph nodes are likely reactive. 4. Periapical cyst formation of the left maxillary second bicuspid. ACT 112: Negative or not required by law. The above report was generated using voice recognition software. It may contain grammatical, syntax o r spelling errors. Electronically signed by: Alvaro Fong M.D. 01/01/2022 5:59 PM
[2022-01-01] MEDS ORDERED: CLINDAMYCIN/D5W 600 MG/50 ML BAG IV ONE (18:32)
[2022-01-01] MEDS ORDERED: KETOROLAC TROMETHAMINE 15 MG/ML VIAL IV PRN (19:25)
[2022-01-01] MEDS ORDERED: SODIUM CHLORIDE 0.9% 1000ML 1,000 ML IV SCH (19:30)
--- NOTE | 2022-01-01 19:31 | History & Physical Report ---
Date of Service January 01, 2022 Assessment & Plan (1) Cellulitis of submandibular region: Plan: This is a 21-year-old female with PMH of anxiety, depression, alcohol use disorder, history of self-harm by cutting who presents with rapid onset swelling under her chin noticed earlier today and was found to have cellulitis of submandibular region. Afebrile, saturating 97% on room air, leukocytosis 15k Soft tissue neck CT with subcutaneous edema within the submental/submandibular tissues without abscess is suggestive of cellulitis. Findings may represent developing Cely angina Continue empiric antibiotic therapy with clindamycin, added cefepime Discussed case with Dr. Jimenez, who recommends 10 mg IV Decadron Q12H starting this evening Clear liquids, n.p.o. at midnight Monitor airway closely. ICU HESHAM aware in case airway deteriorates overnight patient needs to be intubated (2) Alcohol use disorder, moderate, dependence: Plan: Endorses drinking a fifth (750ml) of tequila every 3 nights. Last drink was yesterday evening No signs/sx of withdrawal at this time Alcohol withdrawal protocol with Gabapentin, PRN IV ativan Daily folate and Thiamine (3) Major depression, recurrent: Plan: Continue fluoxetine, trazodone (4) Transaminitis: Plan: AST 44, ALT 69 2/2 alcohol dependence. At baseline for patient DVT Ppx: SCDs Code status: FULL PCP: Gildardo VELEZ Dispo: Admitted to PCU Patient seen in collaboration with Dr. Aldridge. Please see addendum. History of Present Illness Chief Complaint: Swelling under neck Primary Care Provider: Felicitas Ewing PA-C This is a 21-year-old female with PMH of anxiety, depression, alcohol use disorder, history of self-harm by cutting who presents with rapid onset swelling under her chin noticed earlier today. Patient states she was in normal state of health yesterday but woke up today with redness swelling and pain under her chin. Denies any trauma or injury to the area. Denies open wounds or poor dentition. Has been applying ice to the area with minimal relief. Is able to swallow without difficulty and denies any shortness of breath or difficulty breathing. Has had decreased appetite today. Denies any history of this happening in the past. No fever, chills, congestion, headache, chest pain, shortness of breath, nausea, vomiting, abdominal pain, dysuria, diarrhea or constipation. Patient endorses drinking a fifth (750ml) of tequila every 3 nights. Last drink was yesterday evening. Allergies Allergy/AdvReac Type Severity Reaction Status Date / Time cat dander Allergy Intermediate PUFFY Verified 01/01/22 18:25 EYES, SNEEZING, CONGESTION house dust Allergy Intermediate SNEEZING, Verified 01/01/22 18:25 CONGESTION weed pollen Allergy Intermediate SNEEZING, Verified 01/01/22 18:25 CONGESTION Home Medications Medication Instructions Recorded Confirmed Type fluoxetine 20 mg capsule 20 mg PO QAM 01/01/22 01/01/22 History trazodone 100 mg tablet 100 mg PO HS 01/01/22 01/01/22 History Past Med/Surg History Medical History ADHD Asthma Depression MDD (major depressive disorder), recurrent episode, moderate Migraine Surgical History No history of previous surgery Family History Uncle Asthma maternal Denies family history of Cervix cancer Ovarian cancer Breast cancer Colorectal cancer Uterine cancer Social History Smoking Status: Current every day smoker Tobacco Type: E-cigarettes / Vaping Cigarettes Per Day: Occasional vape pens; Hx Alcohol Use: Yes Alcohol type: hard liquor Alcohol type Comment: a fifth of tequila every 3 days Hx Substance Use: No Preferred Language: Singaporean Communication Ability: Effective Property Claims Manager Required: No Beliefs That Will Affect Care: None marital status: Single Current Living Situation: Other Current Living Situation Comment: Room mate current occupational status: employed and student Other Information That Helps Us Care for You: No Feels Safe at Home: Yes Safety Concerns: Feels Safe At This Time Assistive Devices: Glasses Review of Systems Review of Systems: At least ten systems reviewed and negative except as noted in the HPI. Physical Exam Physical Exam: General Appearance: WD/WN, vitals as above, NAD, sitting up in bed, pleasant, conversing easily Head: normocephalic, atraumatic Eyes: normal inspection, PERRL, conjunctivae normal, anicteric sclerae ENT: external ear and nose normal, oropharynx normal, dentition intact Neck: trachea midline, no thyromegaly, + submandibular/submental area with erythema and indurated, warm and tender to touch. No open lesions Respiratory: normal respiratory effort, lungs clear to auscultation, no wheeze, rales, rhonchi. No accessory muscle use Cardiovascular: regular rate, rhythm, no murmur, normal peripheral pulses, no BLE edema. Vessels: no JVD Chest: normal inspection of chest Abdomen/GI: normal bowel sounds, soft, nontender, no hepatosplenomegaly Extremities/Musculoskeletal: no cyanosis or clubbing, extremities motor strength 5/5 Neurologic: PERRL, EOMI, accommodation nl, no face palsy, no dysarthria, CN's II-XI intact bilaterally and moves all extremities Psychiatric: A+Ox3, euthymic affect Skin: no rashes, normal color, warm/dry Results & Data Results & Data ([facility]) Vital Signs (Past 12 Hours) Vital Signs Temp Pulse Pulse Resp BP BP Pulse Ox 01/01/22 17:23 82 16 144/92 H 97 01/01/22 14:43 36.4 C L 93 H 20 137/92 97 O2 Del Method 01/01/22 17:23 Room Air 01/01/22 14:43 Room Air Laboratory Results Short CBC 01/01/22 Range/Units 16:20 WBC 15.26 H (4.8-10.8) K/ul Hgb 13.7 (12.0-16.0) g/dl Hct 40.1 (34.1-44.9) % Plt Count 249 (130-400) K/uL BMP 01/01/22 16:20 Sodium 135 L Potassium 4.1 Chloride 100 Carbon Dioxide 28 BUN 10 Creatinine 0.86 Glucose 89 Calcium 9.9 Liver Function 01/01/22 Range/Units 16:20 Total Bilirubin 0.6 (0.2-1.0) mg/dl AST 44 H (13-39) U/L ALT 69 H (7-52) U/L Alkaline Phosphatase 61 (34-104) U/L Albumin 4.4 (3.4-5.0) gm/dl Diagnostic Findings Soft Tissue Neck CT 01/01/22 17:05 CT soft tissue neck w con HISTORY: 21 years-old Female chin/neck edema, erythema, pain . Acute pain and swelling of the neck COMPARISON: None TECHNIQUE: Multiple axial CT images of the soft tissues of the neck were obtained following the intravenous administration of 94 mL Optiray 320. A dose lowering technique was used consistent with the principals of WILMAN. FINDINGS: Unremarkable orbits. There is subcutaneous edema within the submental/submandibular tissues. There are prominent borderline enlarged level 1 lymph nodes measuring up to 9 mm in short axis. Mildly enlarged bilateral level 2 lymph nodes measure up to approximately 1.1 cm. The thyroid. The parotid and submandibular glands appear unremarkable. Mild symmetric prominence of the palatine and adenoid tonsils resulting in mild oropharyngeal narrowing. There is partial effacement of the vallecula and piriform sinuses. Unremarkable epiglottis, glottis and subglottic airway. No parapharyngeal abscess or phlegmon. The imaged intracranial structures are unremarkable. Lung apices are clear without pneumothorax. No acute fracture. Mastoid air cells are clear. Minimal mucosal thickening of the maxillary sinuses. Unerupted third mandibular molars are noted bilaterally. Periapical cyst formation with lateral cortical dehiscence noted involving the left maxillary second bicuspid on image 129. No significant adjacent inflammatory changes. IMPRESSION: 1. Subcutaneous edema within the submental/submandibular tissues without abscess is suggestive of cellulitis. Findings may represent developing cely angina. 2. Mild enlargement of the adenoid and palatine tonsils with mild oropharyngeal narrowing. No peritonsillar abscess. 3. Mildly enlarged level I and II lymph nodes are likely reactive. 4. Periapical cyst formation of the left maxillary second bicuspid. ACT 112: Negative or not required by law. The above report was generated using voice recognition software. It may contain grammatical, syntax or spelling errors. Electronically signed by: Alvaro Fong M.D. 01/01/2022 5:59 PM Code Status & VTE Plan VTE Prophylaxis Plan VTE Prophylaxis will be ordered: Yes Supervising Physician Co-Signing Physician Notes Attending Addendum: delayed entry date of service noted above care coordinated with KASANDRA Slade please refer to her notes for full details, I agree with her notes patient seen and examined, records reviewed by myself as well on exam, patient seen sitting up in bed in good spirits, not in distress denies difficulty swallowing saliva, throat swelling, dyspnea no other symptoms diagnoses and plan of care as per KASANDRA Aldridge MD
[2022-01-01] MEDS ORDERED: GABAPENTIN 600 MG TAB PO ONE ×2 (19:42→20:52)
[2022-01-01] MEDS ORDERED: GABAPENTIN 1200MG ALCOHOL WITHDRAWAL LOAD PO ONE (19:43)
--- NOTE | 2022-01-01 19:49 | Emergency Department Note ---
ED Visit Note I have personally evaluated this patient examined her and reviewed the pertinent labs and data. I have discussed the case with Nahum Diane, the physician customer relations assistant and agree with the plan. Please refer to the PA note. This patient has swelling underneath her chin which started this morning. She appears well otherwise. I looked in her posterior oropharynx is wide open the floor the mouth is soft. She did have a CT which is concerning for developing Ludewig's angina. I do think she needs to be admitted for IV antibiotics and further treatment and evaluation. We have consulted Dr. Jimenez, who agrees with the plan as well. he is on-call for ENT and recommends medical admission with observation. .
[2022-01-01] MEDS ORDERED: POLYETHYLENE (MIRALAX) 17 GM PACK PO PRN (20:52)
[2022-01-01] MEDS ORDERED: ONDANSETRON INJ 2 MG/ML 2 ML VIAL IV PRN (20:52)
[2022-01-01] MEDS ORDERED: LORazepam 1 MG in SYRINGE 0.5 ML IV PRN (20:52)
[2022-01-01] MEDS: dexAMETHasone 10 MG in SYRINGE 0 ML IV SCH (21:20)
[2022-01-01] MEDS: CEFEPIME 2,000 MG in SYRINGE 0 ML IV SCH (21:20)
[2022-01-01] MEDS ORDERED: ACETAMINOPHEN 500 MG TAB PO ONE (21:30)
[2022-01-01] MEDS: THIAMINE HCL 100 MG TAB PO SCH (21:38)
[2022-01-01] MEDS: traZODone HCL 100 MG TAB PO SCH (21:38)
[2022-01-01] MEDS: FOLIC ACID 1 MG TAB PO SCH (21:39)
[2022-01-02] MEDS: CLINDAMYCIN/D5W 600 MG/50 ML BAG IV SCH ×4 (01:22→19:56)
[2022-01-02] MEDS: GABAPENTIN 600 MG TAB PO SCH ×4 (01:22→22:38)
[2022-01-02] MEDS ORDERED: GABAPENTIN 600 MG TAB PO SCH (03:00)
[2022-01-02] MEDS: CEFEPIME 2,000 MG in SYRINGE 0 ML IV SCH ×3 (04:02→20:21)
[2022-01-02] MEDS: ACETAMINOPHEN 1,000 MG/100 ML VIAL IV SCH ×3 (06:16→22:38)
[2022-01-02 06:45] LABS: Hematocrit (blood only) 41.4 % (34.1-44.9); Hemoglobin 13.9 g/dl (12.0-16.0); Mean Corpuscular Hemoglobin 30.6 pg (25.0-34.0); Mean Corpuscular Hgb Conc 33.6 g/dL (32.0-36.0); Mean Corpuscular Volume 91.2 fL (80.0-100.0); Mean Platelet Volume 11.1 fL (9.4-12.3); Platelet Count 262 K/uL (130-400); RDW Coefficient of Variation 11.6 % (11.5-14.5); RDW Standard Deviation 38.9 fL (36.4-46.3); Red Blood Count 4.54 M/uL (3.93-5.22); White Blood Count 15.01 K/ul (4.8-10.8)
[2022-01-02 07:12] LABS: BUN Creatinine Ratio 11.8 (10-20); Calcium 9.7 mg/dl (8.5-10.1); Est GFR (Non-African American) 112.1 ml/min; Potassium 4.2 mmol/L (3.5-5.1)
--- NOTE | 2022-01-02 07:17 | ENT Consultation ---
Date of Consultation January 02, 2022 Assessment & Plan (1) Cellulitis of submandibular region: She has a small pimple on her right chin, most likely the origin for the infection, 3 cm submental node, diminishing with IV antibiotics and steroids. Can start diet. Continue IV antibiotics. Consideration for surgery only if she gets worse and the mass becomes fluctuant. No sign of abscess at this time. (2) Alcohol use disorder, moderate, dependence: History of Present Illness Reason for Consultation: Submental cellulitis Attending Physician: Diogo Aldridge MD History of Present Illness 21-year-old lady with sudden onset of submental swelling, redness and tenderness. Past medical history of alcohol use. No dysphagia. No trismus. No trouble swallowing. Allergies Allergy/AdvReac Type Severity Reaction Status Date / Time cat dander Allergy Intermediate PUFFY Verified 01/01/22 18:25 EYES, SNEEZING, CONGESTION house dust Allergy Intermediate SNEEZING, Verified 01/01/22 18:25 CONGESTION weed pollen Allergy Intermediate SNEEZING, Verified 01/01/22 18:25 CONGESTION Home Medications Medication Instructions Recorded Confirmed Type fluoxetine 20 mg capsule 20 mg PO QAM 01/01/22 01/01/22 History trazodone 100 mg tablet 100 mg PO HS 01/01/22 01/01/22 History Patient History Medical History ADHD Asthma Depression MDD (major depressive disorder), recurrent episode, moderate Migraine Surgical History No history of previous surgery Family History Uncle Asthma maternal Denies family history of Cervix cancer Ovarian cancer Breast cancer Colorectal cancer Uterine cancer Social History Smoking Status: Current every day smoker Tobacco Type: E-cigarettes / Vaping Cigarettes Per Day: Occasional vape pens; Hx Alcohol Use: Yes Alcohol type: hard liquor Alcohol type Comment: a fifth of tequila every 3 days Hx Substance Use: No Preferred Language: Brazilian Communication Ability: Effective Work Adjustment Instructor Required: No Beliefs That Will Affect Care: None marital status: Single Current Living Situation: Other Current Living Situation Comment: Room mate current occupational status: employed and student Other Information That Helps Us Care for You: No Feels Safe at Home: Yes Safety Concerns: Feels Safe At This Time Assistive Devices: Glasses Physical Exam Constitutional: WD/WN, vitals as above Eyes: PERRL, conjunctivae normal, anicteric sclerae ENMT: external ear and nose normal, oropharynx normal Mouth: + lip abnormality (Pimple right chin), + oropharynx abnormality (Tonsils 3+) and + tongue abnormality (Tongue mobile with no sign of sublingual swelling) Neck: 3 cm submental node, not fluctuant, mild tenderness, mobile Results & Data ([facility]) Vital Signs (Past 12 Hours) Vital Signs Temp Pulse Pulse Resp BP Pulse Ox O2 Del Method 01/02/22 03:11 36.3 C L 64 16 119/68 95 Room Air 01/01/22 23:50 36.9 C 62 16 118/70 97 Room Air 01/01/22 23:07 74 01/01/22 20:50 73 01/01/22 20:50 Room Air 01/01/22 20:50 36.6 C 70 16 140/97 95 Room Air
[2022-01-02] MEDS: FOLIC ACID 1 MG TAB PO SCH (08:00)
[2022-01-02] MEDS: dexAMETHasone 10 MG in SYRINGE 0 ML IV SCH ×2 (08:01→20:21)
[2022-01-02] MEDS: FLUoxetine HCL 20 MG CAP PO SCH (08:01)
[2022-01-02] MEDS: THIAMINE HCL 100 MG TAB PO SCH (08:05)
--- NOTE | 2022-01-02 17:02 | Hospitalist Progress Note ---
Date of Service January 02, 2022 Assessment & Plan (1) Cellulitis of submandibular region: Plan: This is a 21-year-old female with PMH of anxiety, depression, alcohol use disorder, history of self-harm by cutting who presents with rapid onset swelling under her chin noticed earlier today and was found to have cellulitis of submandibular region. Afebrile, saturating 97% on room air, leukocytosis 15k Soft tissue neck CT with subcutaneous edema within the submental/submandibular tissues without abscess is suggestive of cellulitis. Findings may represent developing Jeferson angina Continue empiric antibiotic therapy with clindamycin, added cefepime Discussed case with Dr. Jimenez, who recommends 10 mg IV Decadron Q12H starting this evening Clear liquids, n.p.o. at midnight Monitor airway closely. ICU HESHAM aware in case airway deteriorates overnight patient needs to be intubated Appreciate ENT input and recommendation Clinically much better and will continue current management Denies any problem with swallowing or shortness of breath Active discharge tomorrow (2) Alcohol use disorder, moderate, dependence: Plan: Endorses drinking a fifth (750ml) of tequila every 3 nights. Last drink was yesterday evening No signs/sx of withdrawal at this time Alcohol withdrawal protocol with Gabapentin, PRN IV ativan Daily folate and Thiamine (3) Major depression, recurrent: Plan: Continue fluoxetine, trazodone (4) Transaminitis: Plan: AST 44, ALT 69 2/2 alcohol dependence. At baseline for patient DVT Ppx: SCDs Code status: FULL PCP: Gildardo VELEZ Dispo: Admitted to PCU Admission and Anticipated Discharge Date Admission Date: January 01, 2022 Subjective 01/02/2022 The patient was seen and examined in telemetry unit Heart changed swelling and redness has decreased Has minimal pain but denies any problem with swallowing and/or breathing No fever and or chills Review of Systems Review of Systems: All systems reviewed and are unremarkable except as noted below Physical Exam Physical Exam: Lying in bed comfortably Constitutional: well developed, well nourished, + ill appearing and + obese ENMT: Swelling, tenderness and redness of the anterior submandibular area below her chin Neck: Swelling and redness of the chin. No swelling of the neck otherwise Respiratory: no respiratory distress Auscultation: lungs clear to auscultation bilaterally Cardiovascular: Rate/Rhythm: regular rate and regular rhythm; not tachycardic Heart Sounds: normal S1 and normal S2; no murmur Extremities: no edema Gastrointestinal (Abdomen): Inspection/Auscultation: normal bowel sounds; abdomen not distended Percussion/Palpation: abdomen soft; abdomen nontender Musculoskeletal: No acute arthritis in any joint Neurologic: Alert, awake and oriented x3. No focal sensory or no motor deficit appreciated Psychiatric: A+Ox3, euthymic affect Lymphatic: no cervical or axillary lymphadenopathy Results & Data Results & Data ([facility]) Vital Signs (Past 12 Hours) Vital Signs Temp Pulse Pulse Resp BP Pulse Ox O2 Del Method 01/02/22 16:35 90 01/02/22 15:24 36.8 C 84 18 118/68 94 Room Air 01/02/22 10:58 36.8 C 82 18 129/83 95 Room Air 01/02/22 07:57 36.7 C 78 18 125/80 95 Room Air Laboratory Results Short CBC 01/02/22 Range/Units 06:06 WBC 15.01 H (4.8-10.8) K/ul Hgb 13.9 (12.0-16.0) g/dl Hct 41.4 (34.1-44.9) % Plt Count 262 (130-400) K/uL BMP 01/01/22 01/02/22 16:20 06:06 Sodium 135 L 134 L Potassium 4.1 4.2 Chloride 100 101 Carbon Dioxide 28 24 BUN 10 9 Creatinine 0.86 0.76 Glucose 89 128 H Calcium 9.9 9.7 Liver Function 01/01/22 Range/Units 16:20 Total Bilirubin 0.6 (0.2-1.0) mg/dl AST 44 H (13-39) U/L ALT 69 H (7-52) U/L Alkaline Phosphatase 61 (34-104) U/L Albumin 4.4 (3.4-5.0) gm/dl Medications Administered Current Inpatient Medications Fluoxetine HCl (Fluoxetine Hcl 20 Mg Cap) 20 mg PO QAM ON LICENSE OF [facility] Stop: 02/01/22 08:59 Last Admin: 01/02/22 08:01 Dose: 20 mg Folic Acid (Folic Acid 1 Mg Tab) 1 mg PO QAM SUSANNE Stop: 01/31/22 20:51 Last Admin: 01/02/22 08:00 Dose: 1 mg Gabapentin (Gabapentin 600 Mg Tab) 600 mg PO Q8H SUSANNE Stop: 01/03/22 07:46 Last Admin: 01/02/22 15:38 Dose: 600 mg Gabapentin (Gabapentin 600 Mg Tab) 600 mg PO Q12H SUSANNE Stop: 01/04/22 07:46 Gabapentin (Gabapentin 600 Mg Tab) 600 mg PO Q24H SUSANNE Stop: 01/05/22 07:46 Dexamethasone 10 mg/ Syringe 2.5 mls @ 1 mls/min IV Q12 SUSANNE Stop: 01/31/22 19:59 Last Admin: 01/02/22 08:01 Dose: 1 mls/min Acetaminophen (Ofirmev) 1,000 mg in 100 mls @ 400 mls/hr IV Q8H SUSANNE Stop: 01/05/22 05:59 Last Infusion: 01/02/22 14:06 Dose: Infused Clindamycin Phosphate (Cleocin/D5w) 600 mg in 50 mls @ 100 mls/hr IV Q6H ON LICENSE OF [facility]; Protocol Stop: 01/09/22 01:59 Last Infusion: 01/02/22 14:21 Dose: Infused Cefepime HCl 2,000 mg/ Syringe 20 mls @ 5 mls/min IV Q8H ON LICENSE OF [facility]; Protocol Stop: 01/08/22 20:51 Last Admin: 01/02/22 13:47 Dose: 5 mls/min Lorazepam 1 mg/ Syringe 1 mls @ 2 mls/min IV ONE PRN; Protocol PRN Reason: EtoH Withdrawl AWSS 6,7,8,9,10 Stop: 01/31/22 20:51 Ketorolac Tromethamine (Ketorolac Tromethamine 15 Mg/Ml Vial) 15 mg IV Q6H PRN PRN Reason: Pain Stop: 01/03/22 19:24 Ondansetron HCl (Ondansetron Inj 2 Mg/Ml 2 Ml Vial) 4 mg IV Q6H PRN PRN Reason: Nausea Stop: 01/31/22 20:51 Polyethylene Glycol (Polyethylene (Miralax) 17 Gm Pack) 17 gm PO DAILY PRN PRN Reason: Constipation Stop: 01/31/22 20:51 Thiamine HCl (Thiamine Hcl 100 Mg Tab) 100 mg PO QAM ON LICENSE OF [facility] Stop: 01/31/22 20:51 Last Admin: 01/02/22 08:05 Dose: 100 mg Trazodone HCl (Trazodone Hcl 100 Mg Tab) 100 mg PO [facility] Stop: 01/31/22 20:59 Last Admin: 01/01/22 21:38 Dose: 100 mg
[2022-01-02] MEDS: traZODone HCL 100 MG TAB PO SCH (22:38)
[2022-01-03] MEDS: CLINDAMYCIN/D5W 600 MG/50 ML BAG IV SCH ×3 (01:02→13:36)
[2022-01-03] MEDS: CEFEPIME 2,000 MG in SYRINGE 0 ML IV SCH ×2 (05:00→13:36)
[2022-01-03] MEDS: ACETAMINOPHEN 1,000 MG/100 ML VIAL IV SCH ×2 (05:01→13:41)
[2022-01-03 07:05] LABS: BUN Creatinine Ratio 13.6 (10-20); Calcium 9.1 mg/dl (8.5-10.1); Creatinine Clr Calc Pharmacy 136.8 ml/min; Est GFR (African American) 120.3 ml/min; Est GFR (Non-African American) 103.8 ml/min; Potassium 4.2 mmol/L (3.5-5.1)
[2022-01-03 07:14] LABS: Basophils # (auto) 0.05 K/uL (0-0.2); Basophils % (auto) 0.2 %; Hematocrit (blood only) 38.2 % (34.1-44.9); Hemoglobin 12.9 g/dl (12.0-16.0); Immature Granulocytes # (auto) 0.67 K/uL (0.00-0.02); Immature Granulocytes % (auto) 2.8 %; Lymphocytes # (auto) 1.16 K/uL (1.2-3.4); Lymphocytes % (auto) 4.9 %; Mean Corpuscular Hemoglobin 30.9 pg (25.0-34.0); Mean Corpuscular Hgb Conc 33.8 g/dL (32.0-36.0); Mean Corpuscular Volume 91.4 fL (80.0-100.0); Mean Platelet Volume 11.4 fL (9.4-12.3); Monocytes # (auto) 0.88 K/uL (0.24-0.82); Monocytes % (auto) 3.7 %; Neutrophils # (auto) 20.76 K/uL (1.4-6.5); Neutrophils % (auto) 88.4 %; Platelet Count 281 K/uL (130-400); RDW Coefficient of Variation 11.9 % (11.5-14.5); RDW Standard Deviation 39.5 fL (36.4-46.3); Red Blood Count 4.18 M/uL (3.93-5.22); White Blood Count 23.52 K/ul (4.8-10.8)
--- NOTE | 2022-01-03 07:55 | Ears,Nose,Throat Progress Note ---
Date of Service January 03, 2022 Assessment & Plan (1) Cellulitis of submandibular region: Plan: Much improved. Less than 2 cm submental node. Will not require excision unless it gets larger. P.o. antibiotics. Will not need follow-up in my office unless the lymph node recurs. Admission and Anticipated Discharge Date Admission Date: January 01, 2022 Subjective 01/02/2022 The patient was seen and examined in telemetry unit Heart changed swelling and redness has decreased Has minimal pain but denies any problem with swallowing and/or breathing No fever and or chills Physical Exam Neck: Submental node subsiding less than 2 cm nontender Results & Data ([facility]) Vital Signs (Past 12 Hours) Vital Signs Temp Pulse Pulse Resp BP BP Pulse Ox 01/03/22 07:34 74 01/03/22 04:24 36.7 C 76 18 115/77 97 01/02/22 23:00 70 01/02/22 23:36 36.7 C 71 16 113/69 96 O2 Del Method 01/03/22 07:34 01/03/22 04:24 Room Air 01/02/22 23:00 01/02/22 23:36 Room Air
[2022-01-03] MEDS: dexAMETHasone 10 MG in SYRINGE 0 ML IV SCH (08:28)
[2022-01-03] MEDS: FOLIC ACID 1 MG TAB PO SCH (08:29)
[2022-01-03] MEDS: FLUoxetine HCL 20 MG CAP PO SCH (08:29)
[2022-01-03] MEDS: GABAPENTIN 600 MG TAB PO SCH (08:29)
[2022-01-03] MEDS: THIAMINE HCL 100 MG TAB PO SCH (08:29)
--- NOTE | 2022-01-03 16:05 | Hospitalist Progress Note ---
Date of Service January 03, 2022 Assessment & Plan (1) Cellulitis of submandibular region: Plan: This is a 21-year-old female with PMH of anxiety, depression, alcohol use disorder, history of self-harm by cutting who presents with rapid onset swelling under her chin noticed earlier today and was found to have cellulitis of submandibular region. Afebrile, saturating 97% on room air, leukocytosis 15k Soft tissue neck CT with subcutaneous edema within the submental/submandibular tissues without abscess is suggestive of cellulitis. Findings may represent developing Jeferson angina Continue empiric antibiotic therapy with clindamycin, added cefepime Discussed case with Dr. Jimenez, who recommends 10 mg IV Decadron Q12H starting this evening Clear liquids, n.p.o. at midnight Monitor airway closely. ICU HESHAM aware in case airway deteriorates overnight patient needs to be intubated Appreciate ENT input and recommendation Clinically much better and will continue current management Denies any problem with swallowing or shortness of breath Denies any significant symptoms and has been eating normally Was evaluated by ENT and advised that she can go home Will change antibiotic to oral clindamycin to continue for a total of 10 days with probiotics (2) Alcohol use disorder, moderate, dependence: Plan: Endorses drinking a fifth (750ml) of tequila every 3 nights. Last drink was yesterday evening No signs/sx of withdrawal at this time Alcohol withdrawal protocol with Gabapentin, PRN IV ativan Daily folate and Thiamine (3) Major depression, recurrent: Plan: Continue fluoxetine, trazodone (4) Transaminitis: Plan: AST 44, ALT 69 2/2 alcohol dependence. At baseline for patient DVT Ppx: SCDs Code status: FULL PCP: Gildardo VELEZ Dispo: Admitted to PCU Discharged home this afternoon Admission and Anticipated Discharge Date Admission Date: January 01, 2022 Subjective 01/02/2022 The patient was seen and examined in telemetry unit Heart changed swelling and redness has decreased Has minimal pain but denies any problem with swallowing and/or breathing No fever and or chills 01/03/2022 The patient was seen and examined in telemetry unit She has been feeling much better and the swelling of the chin has improved a lot No fever and or chills and she has been eating normally Review of Systems Review of Systems: All systems reviewed and are unremarkable except as noted below Physical Exam Physical Exam: Lying in bed comfortably Constitutional: well developed, well nourished and + obese; not ill appearing Neck: Very minimal swelling under the chin with minimal tenderness and warmth feeling Respiratory: no respiratory distress Auscultation: lungs clear to auscultation bilaterally Cardiovascular: Rate/Rhythm: regular rate and regular rhythm; not tachycardic Heart Sounds: normal S1 and normal S2; no murmur Extremities: no edema Gastrointestinal (Abdomen): Inspection/Auscultation: normal bowel sounds; abdomen not distended Percussion/Palpation: abdomen soft; abdomen nontender Musculoskeletal: no cyanosis or clubbing, extremities motor strength 5/5 Neurologic: patellar DTR's 2+ bilat, sensation intact Psychiatric: A+Ox3, euthymic affect Lymphatic: no cervical or axillary lymphadenopathy Results & Data Results & Data ([facility]) Vital Signs (Past 12 Hours) Vital Signs Temp Pulse Pulse Resp BP BP Pulse Ox 01/03/22 15:54 78 01/03/22 08:31 36.8 C 79 18 112/62 124/72 97 01/03/22 11:06 36.8 C 97 H 16 124/77 97 01/03/22 07:34 74 01/03/22 04:24 36.7 C 76 18 115/77 97 O2 Del Method 01/03/22 15:54 01/03/22 08:31 01/03/22 11:06 Room Air 01/03/22 07:34 01/03/22 04:24 Room Air Laboratory Results Short CBC 01/03/22 Range/Units 05:56 WBC 23.52 H D (4.8-10.8) K/ul Hgb 12.9 (12.0-16.0) g/dl Hct 38.2 (34.1-44.9) % Plt Count 281 (130-400) K/uL BMP 01/03/22 05:56 Sodium 135 L Potassium 4.2 Chloride 104 Carbon Dioxide 23 BUN 11 Creatinine 0.81 Glucose 167 H Calcium 9.1 Medications Administered Current Inpatient Medications Fluoxetine HCl (Fluoxetine Hcl 20 Mg Cap) [facility] [place] Stop: 02/01/22 08:59 Last Admin: 01/03/22 08:29 Dose: 20 mg Folic Acid (Folic Acid 1 Mg Tab) 1 mg PO QAM [facility] [place] Stop: 01/31/22 20:51 Last Admin: 01/03/22 08:29 Dose: 1 mg Gabapentin (Gabapentin 600 Mg Tab) 600 mg PO Q12H [facility]US[facility] Stop: 01/04/22 07:46 Gabapentin (Gabapentin 600 Mg Tab) 600 mg PO Q24H SUSANNE Stop: 01/05/22 07:46 Dexamethasone 10 mg/ Syringe 2.5 mls @ 1 mls/min IV Q12 SUSANNE Stop: 01/31/22 19:59 Last Admin: 01/03/22 08:28 Dose: 1 mls/min Acetaminophen (Ofirmev) 1,000 mg in 100 mls @ 400 mls/hr IV Q8H SUSANNE Stop: 01/05/22 05:59 Last Infusion: 01/03/22 14:15 Dose: Infused Clindamycin Phosphate (Cleocin/D5w) 600 mg in 50 mls @ 100 mls/hr IV Q6H [facility] [place]; Protocol Stop: 01/09/22 01:59 Last Infusion: 01/03/22 14:15 Dose: Infused Cefepime HCl 2,000 mg/ Syringe 20 mls @ 5 mls/min IV Q8H [facility] [place]; Protocol Stop: 01/08/22 20:51 Last Admin: 01/03/22 13:36 Dose: 5 mls/min Lorazepam 1 mg/ Syringe 1 mls @ 2 mls/min IV ONE PRN; Protocol PRN Reason: EtoH Withdrawl AWSS 6,7,8,9,10 Stop: 01/31/22 20:51 Ketorolac Tromethamine (Ketorolac Tromethamine 15 Mg/Ml Vial) 15 mg IV Q6H PRN PRN Reason: Pain Stop: 01/03/22 19:24 Ondansetron HCl (Ondansetron Inj 2 Mg/Ml 2 Ml Vial) 4 mg IV Q6H PRN PRN Reason: Nausea Stop: 01/31/22 20:51 Polyethylene Glycol (Polyethylene (Miralax) 17 Gm Pack) 17 gm PO DAILY PRN PRN Reason: Constipation Stop: 01/31/22 20:51 Thiamine HCl (Thiamine Hcl 100 Mg Tab) 100 mg PO QAM SUSANNE Stop: 01/31/22 20:51 Last Admin: 01/03/22 08:29 Dose: 100 mg Trazodone HCl (Trazodone Hcl 100 Mg Tab) 100 mg PO HS SUSANNE Stop: 01/31/22 20:59 Last Admin: 01/02/22 22:38 Dose: 100 mg
[2022-01-03] MEDS ORDERED: CLINDAMYCIN HCL 150 MG CAP PO ONE (17:34)
--- NOTE | 2022-01-03 18:43 | Discharge Summary ---
Date of Service January 03, 2022 Admission HPI Per Admitting Provider This is a 21-year-old female with PMH of anxiety, depression, alcohol use disorder, history of self-harm by cutting who presents with rapid onset swelling under her chin noticed earlier today. Patient states she was in normal state of health yesterday but woke up today with redness swelling and pain under her chin. Denies any trauma or injury to the area. Denies open wounds or poor dentition. Has been applying ice to the area with minimal relief. Is able to swallow without difficulty and denies any shortness of breath or difficulty breathing. Has had decreased appetite today. Denies any history of this coe ppening in the past. No fever, chills, congestion, headache, chest pain, shortness of breath, nausea, vomiting, abdominal pain, dysuria, diarrhea or constipation. Patient endorses drinking a fifth (750ml) of tequila every 3 nights. Last drink was yesterday evening. Admission Exam Per Admitting Provider Physical Exam: General Appearance:WD/WN, vitals as above, NAD, sitting up in bed, pleasant, conversing easily Head: normocephalic, atraumatic Eyes:normal inspection, PERRL, conjunctivae normal, anicteric sclerae ENT: external ear and nose normal, oropharynx normal, dentition intact Neck: trachea midline, no thyromegaly, + submandibular/submental area with erythema and indurated, warm and tender to touch. No open lesions Respiratory:normal respiratory effort, lungs clear to auscultation, no wheeze, rales, rhonchi. No accessory muscle use Cardiovascular: regular rate, rhythm, no murmur, normal peripheral pulses, no BLE edema. Vessels: no JVD Chest: normal inspection of chest Abdomen/GI: normal bowel sounds, soft, nontender, no hepatosplenomegaly Extremities/Musculoskeletal: no cyanosis or clubbing, extremities motor strength 5/5 Neurologic: PERRL, EOMI, accommodation nl, no face palsy, no dysarthria, CN's II-XI intact bilaterally and moves all extremities Psychiatric:A+Ox3, euthymic affect Skin: no rashes, normal color, warm/dry Principal Diagnosis Submandibular cellulitis Discharge Exam Lying in bed comfortably Constitutional well developed, well nourished and + obese; not ill appearing Respiratory no respiratory distress Auscultation: lungs clear to auscultation bilaterally Cardiovascular Rate/Rhythm: regular rate and regular rhythm; not tachycardic Heart Sounds: normal S1 and normal S2; no murmur Extremities: no edema Gastrointestinal (Abdomen) Inspection/Auscultation: normal bowel sounds; abdomen not distended Percussion/Palpation: abdomen soft; abdomen nontender Musculoskeletal no cyanosis or clubbing, extremities motor strength 5/5 Neurologic patellar DTR's 2+ bilat, sensation intact Psychiatric A+Ox3, euthymic affect Lymphatic no cervical or axillary lymphadenopathy Discharge Data Allergies Allergy/AdvReac Type Severity Reaction Status Date / Time cat dander Allergy Intermediate PUFFY Verified 01/01/22 18:25 EYES, SNEEZING, CONGESTION house dust Allergy Intermediate SNEEZING, Verified 01/01/22 18:25 CONGESTION weed pollen Allergy Intermediate SNEEZING, Verified 01/01/22 18:25 CONGESTION Consultations 01/01/22 18:38 ED Decision to Admit Stat 01/01/22 19:27 Consult Otolaryngology (Head and Neck) Routine Ordered Studies 01/01/22 17:05 CT soft tissue neck w con Stat Hospital Course (1) Cellulitis of submandibular region: This is a 21-year-old female with PMH of anxiety, depression, alcohol use disorder, history of self-harm by cutting who presents with rapid onset swelling under her chin noticed earlier today and was found to have cellulitis of submandibular region. Afebrile, saturating 97% on room air, leukocytosis 15k Soft tissue neck CT with subcutaneous edema within the submental/submandibular tissues without abscess is suggestive of cellulitis. Findings may represent developing Jeferson angina Continue empiric antibiotic therapy with clindamycin, added cefepime Discussed case with Dr. Jimenez, who recommends 10 mg IV Decadron Q12H starting this evening Clear liquids, n.p.o. at midnight Monitor airway closely. ICU HESHAM aware in case airway deteriorates overnight patient needs to be intubated Appreciate ENT input and recommendation Clinically much better and will continue current management Denies any problem with swallowing or shortness of breath Denies any significant symptoms and has been eating normally Was evaluated by ENT and advised that she can go home Will change antibiotic to oral clindamycin to continue for a total of 10 days with probiotics (2) Alcohol use disorder, moderate, dependence: Endorses drinking a fifth (750ml) of tequila every 3 nights. Last drink was yesterday evening No signs/sx of withdrawal at this time Alcohol withdrawal protocol with Gabapentin, PRN IV ativan Daily folate and Thiamine (3) Major depression, recurrent: Continue fluoxetine, trazodone (4) Transaminitis: AST 44, ALT 69 2/2 alcohol dependence. At baseline for patient DVT Ppx: SCDs Code status: FULL PCP: Gildardo VELEZ Dispo: Admitted to PCU Discharged home this afternoon Total Time Total Time Spent Total Time Spent (In Minutes): 35 minutes Discharge Plan Discharge Items Patient Disposition: Home - Self-Care Reason For Visit: SUBMANDIBULAR CELLULITIS Discharge Diagnosis: Submandibular cellulitis Condition on Discharge: Good Activity: Resume your previous activity Non-emergency contact: Primary Care Provider Call non-emergency contact if: you have any medication questions and your symptoms worsen Follow-up/Referrals: Felicitas Ewing PA-C [Primary Care Provider] - (Date & Time 01/10/2022 12:20 PM Provider Felicitas Ewing PA-C Department [facility] ) Diet: Regular Addtl Attending Provider Instructions: Please finish the course of antibiotic as advised Keep the follow-up appointment with your primary care provider Avoid drinking any alcohol Pending Studies at Discharge: No Stand-Alone Forms: My [facility], Smoking Cessation Medications and DC Order Prescriptions: New gabapentin 600 mg Tablet 600 mg PO Q24H 1 Days Qty: 1 0RF thiamine HCl (vitamin B1) 100 mg Tablet 100 mg PO QAM Qty: 30 0RF folic acid 1 mg Tablet 1 mg PO QAM 30 Days Qty: 30 0RF clindamycin HCl 300 mg capsule 300 mg PO Q6H 7 Days Qty: 28 0RF Lactobacillus acidophilus Capsule 100 mg PO BID Qty: 30 0RF Continued trazodone 100 mg tablet 100 mg PO HS fluoxetine 20 mg capsule 20 mg PO QAM Discharge Orders: Discharge Order (Routine); Ordered 01/03/22 Ordered By: Nick Hunt Admission Data Admit Date/Time: 01/01/22 19:30 Attending Provider: Nick Hunt Admit Provider: Diogo Aldridge Primary Care Provider: Felicitas Ewing Other Providers: Diogo Aldridge ; Lexii Jimenez How Other Interventions: Discharge Summary Assessment (RN) Last Done: 01/03/22 18:07
[2022-01-03] MEDS ORDERED: GABAPENTIN 600 MG TAB PO SCH (19:45)
[2022-01-05] MEDS ORDERED: GABAPENTIN 600 MG TAB PO SCH (07:45)
== END 2022-01-03 20:00 | disposition home or self-care (01) ==
LOC: ED 14:32 → SUATTDRO 19:30 → 2S 19:30 → INTOOBSV 19:30 → 2S 20:34